=== PATIENT | female | born 1940 | race Caucasian/White ===

== ENCOUNTER → 2020-07-13 13:19 | Outpatient (CLI) | payer MEDICARE, SELFPAY ==
--- NOTE | ~2020-07-13 | DEXA_ITS ---
Bone Density Report Name: JANE LEAL Age: 79 Sex: Female Ethnicity: White Date of : 1940 Indication: hyperparathyroidism; height loss; postmenopausal Referring Provider: Tete, Yadiel Study: Bone densitometry was performed. Exam Date: July 13, 2020 Accession number: [id number] Bone Density: Region BMD T-score Z-score Classification AP Spine (L1-L4) 1.156 1.0 3.7 Normal Femoral Neck (Left) 0.697 -1.4 1.0 Osteopenia Total Hip (Left) 0.841 -0.8 1.3 Normal Femoral Neck (Right) 0.718 -1.2 1.2 Osteopenia Total Hip (Right) 0.753 -1.6 0.6 Osteopenia Total Hip Mean 0.797 -1.2 1.0 Osteopenia World Health Organization criteria for BMD impression classify patients as: Normal (T-score at or above -1.0), Osteopenia (T-score between -1.0 and -2.5), or Osteoporosis (T-score at or below -2.5). 10-year Fracture Risk: FRAX not reported because: Treated for osteoporosis Clinical Information Provided by Patient: Is being treated for osteoporosis Has used the following medications: Fosamax (i.e. alendronate), Vitamin D Has the following medical conditions: Hyperparathyroidism Patient maximum height was 63 Menopause Age: 46 Drinks caffeinated beverages Onset of menses at age 9 Number of children 2 Impression: The patient has low bone mass, based on the Right Total Hip T-score. Discussion: It is important to ask patients whether they are taking their medications and to encourage continued and appropriate compliance with their osteoporosis therapies to reduce fracture risk. It is also important to review their risk factors and encourage appropriate calcium and vitamin D intakes, exercise, fall prevention and other lifestyle measures. Follow-Up: Consider a repeat BMD and Vertebral Fracture Assessment (VFA) exam in 2 years or sooner if medically necessary, to reassess this patient's status. Reported by: ALINA on 07/13/2020 1:40:00 PM. Reviewed, dictated and finalized at location [facility]
== END ==
PROVIDERS: PCP Internal Medicine; Visit Provider Internal Medicine
DX: M81.0 Age-related osteoporosis without current pathological fracture (principal); M85.851 Other specified disorders of bone density and structure, right thigh; M85.852 Other specified disorders of bone density and structure, left thigh
CPT/HCPCS: 77080

== ENCOUNTER → 2020-12-20 14:17 | Outpatient (CLI) | payer MEDICARE, SELFPAY ==
--- NOTE | ~2020-12-20 | MR_ITS ---
EXAMINATION: MR lumbar spine wo/w con DATE: 12/20/2020 15:42 INDICATION: Left leg pain and numbness. Lumbar radiculopathy. Arteriovenous fistula. TECHNIQUE: Magnetic resonance imaging (MRI) of the lumbar spine was performed without and with 16 mL MultiHance intravenous contrast. Sequences included sagittal T2-weighted FSE, sagittal T2-weighted FS FSE, and sagittal and axial T1-weighted FSE. Postcontrast sequences included axial T2-weighted FSE a nd axial and sagittal T1-weighted FS FSE. COMPARISON: None FINDINGS: There is 3 mm retrolisthesis of L1 on L2. There are Schmorl's nodes at multiple levels. The re is moderately decreased disc height at L1-L2 and L2-L3, severely decreased disc height at L3-L4, a nd mildly decreased disc height at L4-L5 with endplate remodeling. The distal spinal cord signal inte nsity is normal. The conus medullaris is at T12-L1. There are prominent vessels posterior to the spin al cord in the lower thoracic spine. The following disc levels are specifically discussed: L1-L2: The disc is bulging. There is moderate bilateral facet joint osteoarthritis. There is mild roz ateral neural foraminal stenosis. There is mild central canal stenosis. L2-L3: The disc is bulging. There is moderate bilateral facet joint osteoarthritis. There is mild roz ateral neural foraminal stenosis. There is mild central canal stenosis. L3-L4: The disc is bulging and has an annular fissure. There is severe bilateral facet joint osteoart hritis. There is mild bilateral neural foraminal stenosis. There is mild central canal stenosis. L4-L5: The disc is bulging and has an annular fissure. There is severe bilateral facet joint osteoart hritis. There is mild bilateral neural foraminal stenosis. There is mild central canal stenosis. L5-S1: The disc is mildly bulging. There is severe bilateral facet joint osteoarthritis. There is mil d right neural foraminal stenosis. There is no central canal stenosis. IMPRESSION: 1. Severe lumbar spondylosis. 2. Partially visualized prominent vessels posterior to the spinal cord in the lower thoracic spine. T his finding is nonspecific and may be normal, but may be seen with dural arteriovenous fistula. Reviewed, dictated and finalized at location A. R CONE GRADER IMPRESSION: 1. Severe lumbar spondylosis. 2. Partially visualized prominent vessels posterior to the spinal cord in the l ower thoracic spine. This finding is nonspecific and may be normal, but may be seen with dural arteriovenous fistula.
[2020-12-20 15:05] LABS: Estimated Glomerular Filt Rate > 60
== END ==
DX: I77.0 Arteriovenous fistula, acquired (principal); M54.16 Radiculopathy, lumbar region; M25.552 Pain in left hip; M47.816 Spondylosis without myelopathy or radiculopathy, lumbar region
CPT/HCPCS: 72158; A9577

== ENCOUNTER → 2021-02-16 13:17 | Outpatient (CLI) | payer MEDICARE, SELFPAY ==
--- NOTE | ~2021-02-16 | MR_ITS ---
EXAMINATION: MR thoracic spine wo/w con DATE: 02/16/2021 15:03 INDICATION: Dural arteriovenous fistula. TECHNIQUE: Magnetic resonance imaging (MRI) of the thoracic spine was performed without and with 17 m L MultiHance intravenous contrast. Sequences included sagittal and axial T2-weighted FSE, sagittal ST IR FSE, and sagittal and axial T1-weighted FSE. Postcontrast sequences included sagittal and axial T1 -weighted FS FSE. COMPARISON: Lumbar spine MRI 12/20/2020 FINDINGS: There is 8 degrees levocurvature of thoracic spine. There is kyphosis of thoracic spine. Th ere is a Schmorl's node of inferior endplate of T12. There is mildly decreased disc height from T2-T3 through T12-L1 with endplate remodeling. There is multilevel facet joint osteoarthritis, severe in t he upper thoracic spine and on the left at T10-T11. There is multilevel mild neural foraminal stenosi s bilaterally. At T5-T6, the disc is mildly bulging with mild central canal stenosis. There is widesp read increased T2-weighted signal intensity in the spinal cord, worst at T6 and T11. There are promin ent blood vessels posterior to the spinal cord from T3 to T11. IMPRESSION: 1. 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 2. Mild thoracic spondylosis. Reviewed, dictated and finalized at location A. SPREADER IMPRESSION: 1. 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 2. Mild thoracic spondylosis.
[2021-02-16 14:22] LABS: Estimated Glomerular Filt Rate > 60
== END ==
PROVIDERS: PCP Internal Medicine
DX: I67.1 Cerebral aneurysm, nonruptured (principal)
CPT/HCPCS: 72157; A9577

== ENCOUNTER 2023-04-16 10:00 | Inpatient (IN) | payer MEDICARE, SELFPAY ==
--- NOTE | ~2023-04-16 | US_ITS ---
EXAMINATION: US renal BI DATE: 04/16/2023 20:00 INDICATION: Right kidney mass. TECHNIQUE: Multiple ultrasound grayscale images of the kidneys were obtained. COMPARISON: CT abdomen and pelvis 04/16/23 FINDINGS: The right kidney measures 12.3 x 6.3 x 5.8 cm. The left kidney measures 11.0 x 6.0 x 4.5 cm. The kidn eys demonstrate normal parenchymal echogenicity. There is a 2.9 cm cyst in right kidney. There is no hydronephrosis. The bladder is normal. IMPRESSION: 1. 2.9 cm cyst in right kidney. Reviewed, dictated and finalized at location E. ER MACHINE
--- NOTE | ~2023-04-16 | CT_ITS ---
EXAMINATION: CT abdomen pelvis w con DATE: 04/24/2023 11:45 INDICATION: Intra-abdominal abscess status post percutaneous drainage. TECHNIQUE: Computed tomography (CT) of the abdomen and pelvis was performed with 100 mL Omnipaque 350 intravenous contrast and with rectal contrast. Automated exposure control and iterative reconstructi on technique were employed. The dose-length product was 663.41 mGy-cm. COMPARISON: CT abdomen and pelvis 04/20/2023 FINDINGS: The visualized portions of the lung bases demonstrate mild atelectasis. There is mild eleva tion of right hemidiaphragm. No pleural effusion. The heart size is normal. There are coronary artery calcifications. No pericardial effusion. There is a small sliding hiatal hernia. The liver is normal . There are changes of cholecystectomy. The spleen, pancreas, and right adrenal gland are normal. The re is a 15 mm mass in the left adrenal gland measuring soft tissue attenuation. There is cortical thi nning of the kidneys. There is a 2.9 cm hemorrhagic cyst in right kidney. There are cysts in the kidn eys measuring up to 6 mm on the left. The bladder is decompressed by a Ivy catheter. There are scat tered diverticula in the colon. There is wall thickening of the sigmoid colon. There is fat stranding around the sigmoid colon and rectum. There is a 6.6 x 3.0 x 1.6 cm perisigmoid abscess. There is a p ercutaneous drain in expected position. There is no rectal contrast in the abscess. Aortic atheroscle rosis is noted. The appendix is normal. There are no pathologically enlarged lymph nodes. There is mi ld thoracic spondylosis and severe lumbar spondylosis. IMPRESSION: 1. Perisigmoid abscess with percutaneous drain in expected position, mildly improved from 04/20/2023. No rectal contrast in the abscess. 2. 15 mm left adrenal mass. 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 Reviewed, dictated and finalized at location A. IMPRESSION: 1. Perisigmoid abscess with percutaneous drain in expected position, mildly imp roved from 04/20/2023. No rectal contrast in the abscess. 2. 15 mm left adrenal mass. 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
--- NOTE | ~2023-04-16 | CT_ITS ---
EXAMINATION: CT abdomen pelvis w con DATE: 04/20/2023 16:28 INDICATION: Pelvic abscess. TECHNIQUE: Computed tomography (CT) of the abdomen and pelvis was performed with 100 mL Omnipaque 350 intravenous contrast. Automated exposure control and iterative reconstruction technique were employe d. The dose-length product was 963.84 mGy-cm. COMPARISON: CT abdomen and pelvis 04/16/23, ultrasound 04/16/2023 FINDINGS: The visualized portions of the lung bases demonstrate mild atelectasis. There are trace ple ural effusions. There is mild elevation of right hemidiaphragm. The heart size is normal. No pericard ial effusion. There are coronary artery calcifications. The liver is normal. There are changes of cho lecystectomy. The common duct measures 12 mm in diameter, likely not clinically significant given the normal liver function tests.. There is a small sliding hiatal hernia. The spleen, pancreas, and righ t adrenal gland are normal. There is a 15 mm mass in left adrenal gland. There is cortical thinning o f the kidneys. There is a 2.9 cm hemorrhagic cyst in right kidney. There are cysts in the kidneys siria suring up to 6 mm on the left. There is a right inguinal hernia containing fat. There are scattered d iverticula in the colon. There is wall thickening of the sigmoid colon. The appendix is normal. Aorti c atherosclerosis is noted. There are calcified fibroids in the uterus. There is a perisigmoid absces s measuring 7.0 x 3.2 x 2.8 cm. There is a percutaneous drain in expected position. There are no path ologically enlarged lymph nodes. There is mild thoracic spondylosis and severe lumbar spondylosis. IMPRESSION: 1. Perisigmoid abscess with percutaneous drain in expected position, worsened from 04/16/2023. 2. 15 mm left adrenal mass. 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 Reviewed, dictated and finalized at location E. IMPRESSION: 1. Perisigmoid abscess with percutaneous drain in expected position, worsened f rom 04/16/2023. 2. 15 mm left adrenal mass. 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
--- NOTE | ~2023-04-16 | CT_ITS ---
EXAMINATION: CT guide absc cath placement DATE: 04/17/2023 13:32 INDICATION: Pelvic abscess TECHNIQUE: The procedure including the risks and benefits was discussed with the patient. Risks discu ssed included bleeding, infection, allergic reaction and nerve or visceral organ injury. The patient understood the risks and benefits and agreed to proceed. The patient was confirmed to be receiving ap propriate antibiotic coverage. The patient was placed prone and the skin overlying the right buttock was prepped and draped in usual sterile fashion. [facility] CT imaging was obtained including following a dministration of with 100 mL Omnipaque-350 intravenous contrast to delineate the margins of the pelvi c abscess. Anesthetic was administered with 1% lidocaine subcutaneously. Conscious sedation was also provided with 50 mcg fentanyl administered IV. A 18-gauge trochar needle was inserted into the pelvic peritoneal fluid collection with intermittent CT guidance. The inner stylette was removed and a J-wi re was advanced through the needle into the fluid collection with position confirmed by CT . Utilizin g Seldinger technique the needle was removed and the tract serially dilated over the wire to 9 Greenlandic . An 8.5 Fr catheter was inserted into the peritoneal fluid collection over the wire with position co nfirmed by CT. The distal loop was formed and locked, the wire removed and the catheter was stitched to skin with suture. Anabiotic ligament and a sterile dressing were applied. An additional adhesive f ixation device was obtained. 20 mL of opaque [id number]-rusyrzz fluid was aspirated and the tube w hich was then attached to suction drainage. There were no immediate complications. The dose-length pr oduct was 311.39 mGy-cm. FINDINGS: CT images demonstrate the catheter within the 6.4 x 2.8 x 2.0 cm fluid collection in the cu l-de-sac of the pelvis.. 20 mL fluid was aspirated for testing. IMPRESSION: 1. Successful CT-guided right transgluteal pelvic abscess drainage catheter placement. 2. 20 mL fluid was sent for aerobic and anaerobic cultures. 3. The catheter will be managed by Dr. Constantino. Reviewed, dictated and finalized at location A. AR POINTER IMPRESSION: 1. Successful CT-guided right transgluteal pelvic abscess drainage catheter darrian cement. 2. 20 mL fluid was sent for aerobic and anaerobic cultures. 3. The catheter will be managed by Dr. Constantino.
--- NOTE | ~2023-04-16 | CT_ITS ---
CT of the Abdomen and Pelvis: Indication: Abdominal pain Technique: 2.5 mm axial scans were obtained through the abdomen and pelvis following intravenous adm inistration of 100 cc of Omnipaque 350. Dose reduction technique was used on this scan by utilizing a utomated exposure control and iterative reconstruction technique. The dose-length product (DLP) was 6 02.18 mGy-cm. Findings: Scans through the lung bases are unremarkable. The liver, spleen, pancreas, right adrenal gland, and left kidney are within normal limits. Cholecyst ectomy clips present. 1.4 cm left adrenal nodule present, indeterminate. 2.9 cm right renal mass pres ent, probably hyperdense cyst, though solid lesion not completely excluded. There are atherosclerotic calcifications of the aorta. No lymphadenopathy. There is a 5.5 x 2.9 cm abscess in the pelvic cul-de-sac between the uterus and distal rectum. There is inflammatory change about the distal sigmoid colon and rectum with underlying diverticular disease . No free air evident. Images through the pelvis were performed. Urinary bladder unremarkable. Small calcified uterine fibro ids are present. Impression: 5.5 x 2.0 pelvic abscess, likely due to underlying sigmoid diverticulitis. Small calcified fibroids. 2.9 cm right renal mass, likely hyperdense cyst, however the solid mass not excluded. Ultrasound earle mmended to assess for cystic versus solid lesion. 1.4 cm indeterminate left adrenal nodule, most likely benign. Reviewed, dictated and finalized at [facility]. D STRATEGIST Impression: 5.5 x 2.0 pelvic abscess, likely due to underlying sigmoid diverticulitis. Small calcified fibroids. 2.9 cm right renal mass, likely hyperdense cyst, however the solid mass not exc luded. Ultrasound recommended to assess for cystic versus solid lesion. 1.4 cm indeterminate left adrenal nodule, most likely benign.
--- NOTE | ~2023-04-16 | CT_ITS ---
EXAMINATION: CT abdomen pelvis wo con DATE: 04/28/2023 10:10 INDICATION: Follow-up pelvic abscess drainage TECHNIQUE: Computed tomography (CT) of the abdomen and pelvis was performed without intravenous contr ast. Automated exposure control and iterative reconstruction technique were employed. The dose-length product was 797.44 mGy-cm. COMPARISON: CT studies dated 04/25/2023 through 04/17/2023 FINDINGS: Mild discoid atelectasis at the lingula and mild dependent atelectasis in the bilateral lower lobes. Heart size is normal. Atherosclerotic coronary artery calcific location. Small pericardial effusion. No pleural effusion. Small sliding-type hiatal hernia. Cholecystectomy clips the gallbladder fossa. L iver, spleen, pancreas and right adrenal gland are normal. Unchanged 1.5 cm left adrenal mass. Unchan ged 2.9 cm hemorrhagic cyst at the lower pole the right kidney. 3 mm nonobstructing stone at the lowe r pole of the left kidney. Again seen is a right transgluteal percutaneous abscess drain with distal tip coiled along side the rectum within the now completely decompressed abscess cavity. Multiple dive rticula along the visualized portions of the colon. There is diffuse mild wall thickening of the colo n consistent with colitis. Normal appendix. No bowel obstruction. There is some gas within the partia lly decompressed bladder. There are few calcified degenerated uterine fibroids. Bilateral adnexa are unremarkable. No pathologically enlarged abdominal or pelvic lymphadenopathy. Mild thoracic and sever e lumbar spondylosis. IMPRESSION: 1. Unchanged right transgluteal percutaneous pelvic abscess drain with resolution of the prior pelvic abscess. 2. Extensive diverticulosis along with diffuse mild wall thickening of the colon consistent with coli tis which could be infectious, inflammatory or less likely ischemic in etiology. 3. Nonspecific small amount of gas within the bladder. Correlate for recent instrumentation or Ivy catheterization. 4. Unchanged 1.5 cm left adrenal mass statistically most likely to represent an adenoma. 5. Small sliding-type hiatal hernia. 6. 3 mm nonobstructing stone at the lower pole of the left kidney. Reviewed, dictated and finalized at location A. IMPRESSION: 1. Unchanged right transgluteal percutaneous pelvic abscess drain with resoluti on of the prior pelvic abscess. 2. Extensive diverticulosis along with diffuse mild wall thickening of the colo n consistent with colitis which could be infectious, inflammatory or less likel y ischemic in etiology. 3. Nonspecific small amount of gas within the bladder. Correlate for recent ins trumentation or Ivy catheterization. 4. Unchanged 1.5 cm left adrenal mass statistically most likely to represent an adenoma. 5. Small sliding-type hiatal hernia. 6. 3 mm nonobstructing stone at the lower pole of the left kidney.
--- NOTE | ~2023-04-16 | CT_ITS ---
EXAMINATION: CT guide absc cath placement DATE: 04/25/2023 15:07 INDICATION: Perisigmoid abscess. TECHNIQUE: The procedure including the risks, benefits, and alternatives was discussed with the patie nt. Risks discussed included bleeding and infection. The patient understood the risks and benefits an d agreed to proceed. The skin around the right transgluteal drain was prepped and draped in usual st erile fashion. Anesthetic was administered with 1% lidocaine subcutaneously. Moderate sedation was a chieved with 1 mg Versed IV and 50 mg fentanyl IV. The pigtail drain was cut and exchanged over a J-w jake for 10 Malagasy and 12 Malagasy dilators and a new 12 Malagasy pigtail catheter. The catheter was stitc hed to the skin, and a sterile dressing was applied. The mA was adjusted according to patient size. I terative reconstruction technique was employed. The dose-length product was 121.46 mGy-cm. There were no immediate complications. FINDINGS: CT images demonstrate the catheter within the perisigmoid abscess. There is little residual fluid. IMPRESSION: 1. Successful CT-guided perisigmoid abscess drain change. Reviewed, dictated and finalized at location A.
[2023-04-16 10:06] VITALS: BP 170/79; PULSE 110; RESP 16; TEMP 36.6; O2SAT 97
--- NOTE | 2023-04-16 11:23 | ECG_ITS ---
Measurements Intervals [place] Rate: 84 P: -7 VT: 137 QRS: 26 QRSD: 89 T: 39 QT: 353 QTc: 418 Interpretive Statements SINUS RHYTHM ATRIAL PREMATURE COMPLEXES BASELINE ARTIFACT- I, II, AVR BORDERLINE ECG NO PREVIOUS ECG AVAILABLE FOR COMPARISON Electronically Signed On 04-16-2023 11:50:03 MANAGER SALT by Hudson Mckeon D.O.
--- NOTE | 2023-04-16 11:23 | ED.ABDPAIN ---
HPI - Abdominal Pain General Chief Complaint: Abdominal Pain <Daniella Carrion PA-C - Last Filed: 04/18/23 20:36> Stated Complaint: abd cramping, n/v/d <Daniella Carrion PA-C - Last Filed: 04/18/23 20:36> Time Seen by Provider: 04/16/23 11:20 <Daniella Carrion PA-C - Last Filed: 04/18/23 20:36> Focused HPI: This is an 82-year-old female that presents to the emergency department for abdominal pain. Ongoing over the last 4 days. Reports crampy abdominal pain associated with vomiting and diarrhea. On Friday night she was feeling very weak and sustained a fall. She did not hit her head or lose consciousness. Although she was unable to get up and laid on the floor all night due to this. She has continued to have crampy abdominal pain and diarrhea any time she eats. Denies fevers. Past medical history of cholecystectomy GENERAL: Well-appearing, well-nourished, and in no acute distress. HEAD: Normocephalic, atraumatic. CHEST: Clear to auscultation. ?No respiratory distress. HEART: Regular rate and rhythm.? NEURO: ?Alert and oriented x3. Patient screened in triage and initial orders placed.? ?Additional care and disposition to be based upon?diagnostic testing and treatment. <Daniella Carrion PA-C - Last Filed: 04/18/23 20:36> History of Present Illness HPI narrative: 82-year-old female presenting with lower abdominal pain that started about 4 days ago. Associated with vomiting and diarrhea. States that she has been increasingly weak and has not been urinating as frequently. She denies pain anywhere else. No fevers. No further complaints. <Nancy Browne MD - Last Filed: 04/21/23 21:56> Related Data Home Medications: Home Medications Medication Instructions Recorded Confirmed alendronate 70 mg tablet 70 mg PO WEEKLY 04/16/23 04/16/23 bimatoprost 0.01 % eye drops 1 drp EACH EYE DAILY 04/16/23 04/16/23 (Mar) hydrochlorothiazide 25 mg tablet 25 mg PO DAILY 04/16/23 04/16/23 levothyroxine 88 mcg tablet 88 mcg PO DAILY 04/16/23 04/16/23 semaglutide 0.25 mg or 0.5 mg (2 0.5 mg subcut WEEKLY 04/16/23 04/16/23 mg/3 mL) subcutaneous pen injector (Ozempic) timolol maleate 0.5 % eye drops 1 drp LEFT EYE DAILY 04/16/23 04/16/23 valsartan 80 mg tablet 80 mg PO DAILY 04/16/23 04/16/23 <Daniella Carrion PA-C - Last Filed: 04/18/23 20:36> Allergies/Adverse Reactions: Allergies Allergy/AdvReac Type Severity Reaction Status Date / Time latex Allergy Unknown Verified 04/16/23 17:07 <Daniella Carrion PA-C - Last Filed: 04/18/23 20:36> Review of Systems Review of Systems: All systems reviewed & are unremarkable except as noted in HPI and below <Nancy Browne MD - Last Filed: 04/21/23 21:56> [facility] Past Medical History Medical History: Medical History (Updated 04/19/23 @ 08:40 by Manny Hameed MD) Glaucoma Hypertension Hypothyroidism Osteoarthritis Osteoporosis Type 2 diabetes mellitus <Daniella Carrion PA-C - Last Filed: 04/18/23 20:36> Surgical History Surgical History: Surgical History (Updated 04/16/23 @ 16:50 by Rosanna Jennings PA-C) History of bilateral knee arthroplasty History of colonoscopy History of laparoscopic cholecystectomy <Daniella Carrion PA-C - Last Filed: 04/18/23 20:36> Family History Family History: Family History Other No pertinent family history <Daniella Carrion PA-C - Last Filed: 04/18/23 20:36> Social History Social History: Social History (Updated 04/16/23 @ 22:43 by Rosanna Jennings PA-C) Social History: Surrogate medical decision maker: Pierre Finley, spouse. Code status: Full code. Smoking status: Never smoker Alcohol intake: never Substance use: never Do You Feel Safe in your Home?: Yes Lack of Transportation: No Lack of Food: Never True Current Housing: I Have Housing Concerned About Future Housing:
[2023-04-16 11:38] LABS: Basophils Percent Auto 0.2 % (0.2-1.2); Eosinophils Percent Auto 0.1 % (0-4.4); Hematocrit 41.4 % (37.0-47.0); Immature Granulocyte Absolute 0.07 K/mm3 (0.00-0.031); Immature Granulocyte Percent A 0.5 % (0-0.5); Lymphocytes Absolute Auto 0.82 K/mm3 (0.9-3.2); Lymphocytes Percent Auto 5.8 % (18.3-44.2); Mean Corpuscular HGB Conc 31.4 g/dl (32-36); Mean Corpuscular Volume 92.4 fl (80-100); Mean Platelet Volume 9.7 fl (7.4-10.4); Monocytes Absolute Auto 0.6 K/mm3 (0.1-0.6); Monocytes Percent Auto 4.5 % (2.6-8.5); Neutrophils Absolute Auto 12.5 K/mm3 (1.3-6.7); Neutrophils Percent Auto 88.9 % (45.5-73.1); Platelet Count Result 318 k/mm3 (150-375); Red Blood Count 4.48 M/mm3 (4.2-5.4); Red Cell Distribution Width 13.3 % (11.5-14.5); White Blood Count 14.1 K/mm3 (4.5-10.0)
[2023-04-16] MEDS: ONDANSETRON INJ 4 MG/2 ML VIAL IV PUSH (11:40)
[2023-04-16] MEDS: SODIUM CHLORIDE 0.9% IV 1,000 ML 999 ML IV CONT ×2 (11:40→13:19)
[2023-04-16 11:49] LABS: Alanine Aminotransferase 24 U/L (6-35); Albumin Level 3.8 g/dL (3.5-5.1); Alkaline Phosphatase 133 U/L (38-126); Anion Gap 8 mmol/L (8-16); Aspartate Amino Transferase 26 U/L (14-36); Bilirubin,Total 0.9 mg/dL (0.2-1.3); Blood Urea Nitrogen 20 mg/dL (7-17); Calcium 9.8 mg/dL (8.4-10.2); Carbon Dioxide 29 mmol/L (22-30); Chloride 96 mmol/L (98-107); Estimated CRCL calculation 56 ml/min; Estimated Glomerular Filt Rate > 60; Glucose 111 mg/dL (65-110); Lipase 24 U/L (23-300); Potassium 3.2 mmol/L (3.4-5.0); Sodium 133 mmol/L (137-145)
[2023-04-16 11:52] LABS: Creatine Kinase 21 U/L (30-135)
[2023-04-16 12:15] LABS: Influenza A QL RT-PCR Negative (Negative); Influenza B QL RT-PCR Negative (Negative); SARS-CoV-2 RNA PCR Negative (Negative)
[2023-04-16] MEDS: PIPERACILLN/TAZ 3.375GM/NS50ML 3.375 GM/50 ML BAG IVPB ×2 (14:50→20:17)
[2023-04-16] MEDS: MORPHINE SULFATE (*CRX) 2 MG/ML INJ IV PUSH ×2 (15:08→20:16)
--- NOTE | 2023-04-16 15:36 | PM.CNGS ---
Assessment and Plan Assessment and plan (1) Diverticulitis of large intestine with abscess: Code(s): K57.20 - Diverticulitis of large intestine with perforation and abscess without bleeding Status: Acute Assessment and Plan: CT findings of a pelvic abscess measuring 5.5 x 2.0 cm with inflammatory change at the distal sigmoid colon and rectum with underlying diverticular disease. No free intraperitoneal air. This is likely secondary to sigmoid diverticulitis. This would be her first episode of diverticulitis. She has appropriate tenderness in the suprapubic area and left lower quadrant. No diffuse peritoneal signs. Discussed the CT findings with the patient and our recommendations. We will continue IV Zosyn and start IV fluids with potassium since her potassium was slightly low. Will keep her NPO for bowel rest and add analgesics as needed. I have also ordered CT-guided percutaneous drainage of the pelvic abscess to be done in Radiology. Will add coags to her labs today for the procedure. Will continue to monitor with serial abdominal exams and labs again in the morning. (2) Hypertension: Code(s): I10 - Essential (primary) hypertension Status: Chronic (3) Hypothyroidism: Code(s): E03.9 - Hypothyroidism, unspecified Status: Chronic (4) Renal mass: Code(s): N28.89 - Other specified disorders of kidney and ureter Status: Acute Assessment and Plan: Incidentally found on CT, showing 2.9 cm right renal mass, likely hyperdense cyst, however the solid mass not excluded. Radiologist recommends an ultrasound to assess for cystic versus solid lesion. Plan I have discussed the patient's case and plan of care with Dr. Hameed. Thank you for allowing us to see the patient in consultation and we will continue to follow along with you. History of Present Illness Consult details Consult date: 04/16/23 Reason for consult: other (Pelvic abscess) Requesting physician: Nancy Browne MD Narrative: This is an 82-year-old woman with a history of hypertension, hypothyroidism, and osteoporosis, who we have been asked to see in surgical consultation for a pelvic abscess. She presented to the ER today with complaints of lower abdominal pain. She reports waking up with left lower quadrant pain 4 days ago. She developed nausea, vomiting, and diarrhea throughout the day. These symptoms improved, but her abdominal pain persisted over the next few days. Three nights ago, her leg got wrapped up in her bed sheet and she fell to the floor from her bed. She was too weak to get up and her was unable to lift her up off the floor back to bed, so she slept on the floor all night. Her son and neighbor came over in the morning to help her up off the floor. Her neighbor is also a physician and took her vital signs, and told her she was dehydrated and needed to drink fluids. Therefore, she focused on drinking water, Gatorade, smoothies, and keeping fluids down. She was not having any vomiting. She reports feeling feverish and having chills, but she did not take her temperature. She was still having left lower quadrant abdominal pain. She was not eating any solid foods. Her diarrhea improved until yesterday when she tried to eat some chicken noodle soup. Shortly after, her abdominal pain got worse and she had another episode of diarrhea. Her abdominal pain started to migrate to the right lower quadrant and suprapubic area yesterday as well. Due to the persistent pain, she decided to come into the ER today as she had not received a call back from her PCP after leaving a message. In the ER, she is afebrile and mildly tachycardic with a heart rate of 110. Blood pressure elevated at 170/79. Labs showed a white blood cell count of 14,100 with a left shift, sodium 133, potassium 3.2, BUN 20, creatinine 0.6, total CK 21. Influenza and COVID negative. CT scan of the abdomen and pelvis showed a 5.5 x 2 cm pelvic abscess likel
[2023-04-16 16:00] VITALS: BP 137/89; PULSE 83; RESP 16; O2SAT 100
[2023-04-16 16:15] VITALS: BP 143/58; PULSE 76; RESP 18; TEMP 36.6; O2SAT 95
--- NOTE | 2023-04-16 16:15 | PC.NURSE ---
This patient, Glendy Finley, was admitted to 3 [facility] Surg Room 303-01. Patient/family oriented to hospital policies and general routines including ID bracelet, bed and alarms, visiting hours, pain management, procedures, bathroom and other care routines, personal items, smoking policy, room service/diet, and visiting hours. Information on how to activate the Rapid Response Team has been discussed. Patient/Family are encouraged to report perceived risks to care and to ask questions if they do not understand what they are told or what they should do.
[2023-04-16 16:16] VITALS: BMI 34.1
--- NOTE | 2023-04-16 16:42 | PM.IMHP ---
H&P: HPI History of Present Illness Date/Time: 04/16/23 17:15 Chief Complaint: Abdominal pain. Narrative: This is a very pleasant 82-year-old female with type 2 diabetes mellitus, hypertension, hypothyroidism, and osteoporosis who presented to the emergency department for evaluation of abdominal pain. The patient provides the following history. Four days ago she awoke with cramping, nonradiating left lower quadrant pain with nausea, vomiting, and diarrhea developing throughout the day. While the nausea, vomiting, and diarrhea improved, the abdominal pain has not. She reports a suggestive fever and chills but has not taken her temperature. Her appetite has not been great and she is only had a small amount of chicken noodle soup. She has become increasingly weak and reports that a couple of nights ago she fell out of bed and neither she nor her were able to get her up so she slept on the floor overnight. The next morning her neighbors came over to help her up. Over the course of the last 24 hours her abdominal pain has intensified and now seems to radiate somewhat to the right lower quadrant and suprapubic region. It is now pretty constant and is occasionally sharp. She denies aggravating and alleviating factors. She also denies vomiting, bloody stools, and sick contacts. She has never had similar symptoms. In the ED: She is afebrile and mildly tachycardic with heart rate in the low 100s. Blood pressures have been stable and in fact a bit high a. Labs were significant for WBC count of 14.1, sodium 133, potassium 3.2, BUN 20, creatinine 0.60, total CK 21. CT of the abdomen and pelvis showed a 5.5 x 2 cm pelvic abscess likely due to underlying sigmoid diverticulitis, and incidental findings to include small calcified fibroid, 2.9 cm right renal mass, 1.4 cm indeterminate left adrenal nodule which is likely benign. She was given a dose of IV Zosyn and 2 L normal saline. She is being admitted in this setting for further IV antibiotics, surgery consultation, and drain placement. Review of Systems Review of Systems: Twelve systems were reviewed and are negative except for as per HPI. [facility] Past Medical History Medical History (Updated 04/16/23 @ 22:43 by Rosanna Jennings PA-C) Glaucoma Hypertension Hypothyroidism Osteoarthritis Osteoporosis Type 2 diabetes mellitus Surgical History Surgical History (Updated 04/16/23 @ 16:50 by Rosanna Jennings PA-C) History of bilateral knee arthroplasty History of colonoscopy History of laparoscopic cholecystectomy Family History Family History Other No pertinent family history Social History Social History (Updated 04/16/23 @ 22:43 by Rosanna Jennings PA-C) Social History: Surrogate medical decision maker: Pierre Finley, spouse. Code status: Full code. Smoking status: Never smoker Alcohol intake: never Substance use: never Do You Feel Safe in your Home?: Yes Lack of Transportation: No Lack of Food: Never True Current Housing: I Have Housing Concerned About Future Housing: No Difficulty Paying Gas/Electric Bills: No Difficulty Paying for Meds: No Currently Unemployed: No Education: Master's Degree or Higher Difficulty w/ Childcare or Family Care: No Additional living arrangements comments: Originally from [place]. Lived in [facility] for many years before moving to [place] and more recently moving to this area to be closer to her son. She has a daughter who lives in [place]. She lives with her . 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 Spiritual care concerns: No Meds Home Medications and Allergies Home Medications Medication Instructions Recorded Confirmed Type alendronate 70 mg tablet 70 mg PO WEEKLY 04/16/23 04/16/23 History bimatoprost 0.01 % eye drops 1 drp EACH EYE DAILY 04/16/23 04/16/23 History (Mar) hydrochlorothiazide
[2023-04-16 17:09] LABS: Partial Thromboplastin Time 29.8 SECONDS (22.3-36.8); Prothrombin Time 13.9 Seconds (11.1-14.7)
[2023-04-16] MEDS: KCL 20 MEQ/D5/0.9% SOD CHL 1,000 ML 100 ML IV CONT (17:16)
[2023-04-16 17:20] LABS: Appearance Urine Clear (Clear); Bacteria Urine 3+ /hpf; Bilirubin Urine Negative (Negative); Blood Urine Negative (Negative); Color Urine Yellow (Yellow); Glucose Urine UA Negative (Negative); Ketones Urine 2+ mg/dL (Negative); Leukocyte Esterase Ur Negative LEU/UL (Negative); Need Manual Microscopic Reviewed; Nitrate Urine Negative (Negative); Non Pathogenic Casts 0-2; Protein Urine 1+ mg/dL (Negative); RBC Urine 0-2 /hpf (0-2); Specific Grav Ur >= 1.099 (1.001-1.035); Squamous Epithelial Cell Urine Occasional /hpf (Few); pH Urine 6.5 (5.0-9.0)
[2023-04-16 17:21] LABS: Add Urine Microscopic? YES
[2023-04-16 19:50] VITALS: PULSE 76; RESP 18; O2SAT 95
[2023-04-16 20:45] VITALS: BP 119/54; PULSE 72; RESP 20; TEMP 35.8; O2SAT 93
[2023-04-17] VITALS (16 sets, daily range): BP systolic 115–143; BP diastolic 37–72; PULSE 61–81; RESP 16–24; TEMP 36.1–36.6; O2SAT 95–100
[2023-04-17] MEDS: PIPERACILLN/TAZ 3.375GM/NS50ML 3.375 GM/50 ML BAG IVPB ×4 (03:04→20:23)
[2023-04-17] MEDS: LEVOTHYROXINE SODIUM INJ 100 MCG/5 ML VIAL 44 MCG IV PUSH (05:44)
--- NOTE | 2023-04-17 06:35 | PM.IMPN ---
Progress Note: A&P Assessment and Plan (1) Diverticulitis of large intestine with abscess: Code(s): K57.20 - Diverticulitis of large intestine with perforation and abscess without bleeding Status: Acute Assessment and Plan: CT scan showed a pelvic abscess 5.5 x 2 cm which is likely due to underlying sigmoid diverticulitis and IR has been consulted for drain placement. first episode of diverticulitis. General Surgery Consulted from ED Analgesics and antiemetics are available as needed. iv zosyn procedures today: Transgluteal percutaneous pelvic peritoneal abscess drainage catheter placement. 20 mL fluid was sent for aerobic and anaerobic cultures. (2) Mild dehydration: Code(s): E86.0 - Dehydration Status: Acute Assessment and Plan: In the ER, she is afebrile and mildly tachycardic with a heart rate of 110. Blood pressure elevated at 170/79. Labs showed a white blood cell count of 14,100 with a left shift, sodium 133, potassium 3.2, BUN 20, creatinine 0.6, total CK 21 3/7 a.m. blood pressure 115/51, labs today note WBC 8.1, hemoglobin 10.1, sodium 134, potassium 3.0, BUN 16, creatinine 0.6, TSH 1.010. continue IV antibiotics and IV fluids (3) Right renal mass: Code(s): N28.89 - Other specified disorders of kidney and ureter Status: Acute Assessment and Plan: Incidentally found on CT, showing 2.9 cm right renal mass, likely hyperdense cyst, however the solid mass not excluded. Radiologist recommends an ultrasound to assess for cystic versus solid lesion. Renal ultrasound has been ordered to further characterize a 2.9 cm right renal mass noted on CT. And indeterminate 1.4 cm left adrenal nodule was also noted though most likely benign. renal ultrasound notes 2.9 cm cyst in right kidney. There is no hydronephrosis. The bladder is normal. (4) Hypokalemia: Code(s): E87.6 - Hypokalemia Status: Acute Assessment and Plan: 3.2 in ED replaced on repeat labs potassium is 3.0- 40 mEq K rider ordered per General surgery then initiate current fluids D5 normal saline with 20 potassium at 100mls/hr repeat labs in a.m. (5) Left adrenal mass: Code(s): E27.8 - Other specified disorders of adrenal gland Status: Acute Assessment and Plan: Renal ultrasound has been ordered to further characterize a 2.9 cm right renal mass noted on CT. And indeterminate 1.4 cm left adrenal nodule was also noted though most likely benign. (6) Hypertension: Code(s): I10 - Essential (primary) hypertension Status: Chronic Assessment and Plan: hydralazine ordered a.m. blood pressure 115/51 (7) Hypothyroidism: Code(s): E03.9 - Hypothyroidism, unspecified Status: Chronic Assessment and Plan: levothyroxine will be given IV form TSH level 1.010 (8) Type 2 diabetes mellitus: Code(s): E11.9 - Type 2 diabetes mellitus without complications Status: Acute Assessment and Plan: Initiate sliding scale insulin, Accu-Cheks, and hypoglycemic protocol home medication is Ozempic Plan The patient presented to the emergency department for evaluation of abdominal pain as detailed in HPI. Labs, imaging, EKG, and all reports were personally reviewed. CT scan showed a pelvic abscess which is likely due to underlying sigmoid diverticulitis and IR has been consulted for drain placement. She received a dose of Zosyn the emergency department and we will continue with that for now. General surgery has been consulted for their opinion as well. Continue NPO status for now. Analgesics and antiemetics are available as needed. She is dehydrated from poor oral intake and will be judiciously hydrated. Renal ultrasound has been ordered to further characterize a 2.9 cm right renal mass noted on CT. And indeterminate 1.4 cm left adrenal nodule was also noted though most likely benign. Potassium is low, was replaced, and will be monitored. Blood pressures we
[2023-04-17 06:53] LABS: Basophils Percent Auto 0.5 % (0.2-1.2); Eosinophils Absolute Auto 0.1 K/mm3 (0-0.3); Eosinophils Percent Auto 0.7 % (0-4.4); Hematocrit 33.2 % (37.0-47.0); Hemoglobin 10.1 g/dL (12.0-15.0); Immature Granulocyte Absolute 0.09 K/mm3 (0.00-0.031); Immature Granulocyte Percent A 1.1 % (0-0.5); Lymphocytes Absolute Auto 1.36 K/mm3 (0.9-3.2); Lymphocytes Percent Auto 16.9 % (18.3-44.2); Mean Corpuscular HGB Conc 30.4 g/dl (32-36); Mean Corpuscular Hemoglobin 28.4 pg (26-34); Mean Corpuscular Volume 93.3 fl (80-100); Mean Platelet Volume 9.7 fl (7.4-10.4); Monocytes Absolute Auto 0.5 K/mm3 (0.1-0.6); Monocytes Percent Auto 6.3 % (2.6-8.5); Neutrophils Percent Auto 74.5 % (45.5-73.1); Platelet Count Result 266 k/mm3 (150-375); Red Blood Count 3.56 M/mm3 (4.2-5.4); Red Cell Distribution Width 13.4 % (11.5-14.5); White Blood Count 8.1 K/mm3 (4.5-10.0)
[2023-04-17 07:05] LABS: Anion Gap 3 mmol/L (8-16); Blood Urea Nitrogen 16 mg/dL (7-17); Calcium 8.5 mg/dL (8.4-10.2); Carbon Dioxide 28 mmol/L (22-30); Chloride 103 mmol/L (98-107); Estimated CRCL calculation 58 ml/min; Estimated Glomerular Filt Rate > 60; Glucose 107 mg/dL (65-110); Sodium 134 mmol/L (137-145)
[2023-04-17] MEDS: TIMOLOL MALEATE 0.5% OP SOLN 5 ML BOTTLE 1 DROP LEFT EYE (08:41)
[2023-04-17] MEDS: LATANOPROST 0.005% OP SOLN 2.5 ML BTL 1 DROP EACH EYE (08:41)
--- NOTE | 2023-04-17 10:19 | PM.PNGS ---
Progress Note: A&P Assessment and Plan (1) Diverticulitis of large intestine with abscess: Code(s): K57.20 - Diverticulitis of large intestine with perforation and abscess without bleeding Status: Acute Assessment and Plan: CT findings of a pelvic abscess measuring 5.5 x 2.0 cm with inflammatory change at the distal sigmoid colon and rectum with underlying diverticular disease. This is likely secondary to sigmoid diverticulitis. Patient already clinically improving with IV antibiotics. WBC normal today. Plan to proceed with percutaneous abscess drainage today in Radiology of the pelvic abscess. If she is doing well after the procedure, we can start her on clear liquids. Will repeat labs again tomorrow. Continue IV Zosyn. (2) Hypertension: Code(s): I10 - Essential (primary) hypertension Status: Chronic (3) Hypothyroidism: Code(s): E03.9 - Hypothyroidism, unspecified Status: Chronic (4) Renal mass: Code(s): N28.89 - Other specified disorders of kidney and ureter Status: Acute Assessment and Plan: Incidentally found on CT, showing 2.9 cm right renal mass, likely hyperdense cyst, however the solid mass not excluded. Renal US showed 2.9 cm cyst. Plan I have discussed the patient's case and plan of care with Dr. Hameed. Subjective Subjective Date/Time Seen: 04/17/23 10:19 Patient reports: feels better, pain is less and afebrile Interval history: Patient feeling much better today. Reports only some pressure in the suprapubic area. No no significant abdominal pain at this time. No nausea or vomiting overnight. White blood cell count today is 8000. She is scheduled to have her percutaneous drainage today at noon. Review of Systems Review of Systems: All systems reviewed & are unremarkable except as noted in HPI and below Exam Const: General: comfortable Orientation/consciousness: patient oriented x3 GI: Inspection: non-distended GI Palp: Yes Soft to palpation (some fullness in the suprapubic area), No Tenderness to palpation present (GI), No Guarding due to palpation present (GI) and No Rebound tenderness present Auscultation: normal bowel sounds Objective Data Vital Signs Vital Signs: Vital Signs - 24 hr 04/16/23 16:00 04/16/23 16:46 04/16/23 16:15 Temperature 97.8 F Pulse Rate 83 76 Respiratory Rate 16 18 Blood Pressure 137/89 143/58 H Pulse Oximetry 100 95 Oxygen Delivery Room Air 04/16/23 19:50 04/16/23 20:45 04/17/23 06:00 Temperature 96.5 F L 98 F Pulse Rate 76 72 61 Respiratory Rate 18 20 20 Blood Pressure 119/54 L 115/51 L Pulse Oximetry 95 93 95 Oxygen Delivery Room Air Intake/Output Intake/Output: Intake & Output 04/14/23 04/15/23 04/16/23 04/17/23 23:59 23:59 23:59 23:59 Intake Total 2850 250 Output Total 200 200 Balance 2650 50 Meds/Results Medications: Active Medications Generic Name Dose Route Start Last Admin Trade Name Freq PRN Reason Stop Dose Admin Piperacillin/Tazobactam/Dextrose 3.375 gm in 50 mls @ 100 mls/hr 04/16/23 21:00 04/17/23 08:40 Zosyn 3.375 Gm/Ns 50 Ml IVPB 100 mls/hr Q6H HANK Administration Potassium Chloride/Dextrose/Sod Cl 1,000 mls @ 100 mls/hr 04/16/23 15:50 04/16/23 17:16 Kcl 20 Meq/D5/0.9% Sod Chl IV CONT 100 mls/hr .Q10H HANK Administration Ibuprofen 400 mg/ Sodium 104 mls @ 208 mls/hr 04/16/23 15:50 Chloride IVPB Q6H PRN Pain Rated 4-6 Latanoprost 1 drop 04/17/23 09:00 04/17/23 08:41 Latanoprost 0.005% Op Soln 2.5 Ml Btl EACH EYE 1 drop DAILY HANK Administration Levothyroxine Sodium 44 mcg 04/17/23 06:30 04/17/23 05:44 Levothyroxine Sodium Inj 100 Mcg/5 Ml Vial IV PUSH 44 mcg DAILY@0630 HANK Administration Morphine Sulfate 2 mg 04/16/23 15:50 04/16/23 20:16 Morphine Sulfate (*Crx) 2 Mg/Ml Inj IV PUSH 2 mg Q2H PRN Administration Pain Rated 7-10 Ondansetron HCl 4 mg 04/16/23 16:14
--- NOTE | 2023-04-17 12:00 | PC.NURSE ---
To XRAY via Wheelchair
--- NOTE | 2023-04-17 12:01 | WPDMODSED ---
Moderate Sedation Note-Pt Data Patient Data Diagnosis: pelvic abscess Present Complaint: mild pelvic pain Procedure to be performed/Plan: Transgluteal percutaneous pelvic peritoneal abscess drain placement. Allergies Allergy/AdvReac Type Severity Reaction Status Date / Time latex Allergy Unknown Verified 04/16/23 17:07 Home Medications Medication Instructions Recorded Confirmed Type alendronate 70 mg tablet 70 mg PO WEEKLY 04/16/23 04/16/23 History bimatoprost 0.01 % eye drops 1 drp EACH EYE DAILY 04/16/23 04/16/23 History (Mar) hydrochlorothiazide 25 mg tablet 25 mg PO DAILY 04/16/23 04/16/23 History levothyroxine 88 mcg tablet 88 mcg PO DAILY 04/16/23 04/16/23 History semaglutide 0.25 mg or 0.5 mg (2 0.5 mg subcut WEEKLY 04/16/23 04/16/23 History mg/3 mL) subcutaneous pen injector (Ozempic) timolol maleate 0.5 % eye drops 1 drp LEFT EYE DAILY 04/16/23 04/16/23 History valsartan 80 mg tablet 80 mg PO DAILY 04/16/23 04/16/23 History Current Medications: Active Medications Piperacillin/Tazobactam/Dextrose (Zosyn 3.375 Gm/Ns 50 Ml) 3.375 gm in 50 mls @ 100 mls/hr IVPB Q6H [facility] Last Admin: 04/17/23 08:40 Dose: 100 mls/hr Potassium Chloride/Dextrose/Sod Cl (Kcl 20 Meq/D5/0.9% Sod Chl) 1,000 mls @ 100 mls/hr IV CONT .Q10H [facility] Last Admin: 04/16/23 17:16 Dose: 100 mls/hr Ibuprofen 400 mg/ Sodium (Chloride) 104 mls @ 208 mls/hr IVPB Q6H PRN PRN Reason: Pain Rated 4-6 Potassium Chloride 40 meq/ (Sodium Chloride) 520 mls @ 130 mls/hr IVPB ONCE ONE Stop: 04/17/23 14:26 Latanoprost (Latanoprost 0.005% Op Soln 2.5 Ml Btl) 1 drop EACH EYE DAILY [facility] Last Admin: 04/17/23 08:41 Dose: 1 drop Levothyroxine Sodium (Levothyroxine Sodium Inj 100 Mcg/5 Ml Vial) 44 mcg IV PUSH DAILY@0630 [facility] Last Admin: 04/17/23 05:44 Dose: 44 mcg Morphine Sulfate (Morphine Sulfate (*Crx) 2 Mg/Ml Inj) 2 mg IV PUSH Q2H PRN PRN Reason: Pain Rated 7-10 Last Admin: 04/16/23 20:16 Dose: 2 mg Ondansetron HCl (Ondansetron Inj 4 Mg/2 Ml Vial) 4 mg IV PUSH Q6H PRN PRN Reason: Nausea And Vomiting Timolol Maleate (Timolol Maleate 0.5% Op Soln 5 Ml Bottle) 1 drop LEFT EYE DAILY [facility] Last Admin: 04/17/23 08:41 Dose: 1 drop Sedation/Anesthesia: No previous sedation/anesthesia problems (including family history). [facility] Past Medical History Medical History (Updated 04/16/23 @ 22:43 by Rosanna Jennings PA-C) Glaucoma Hypertension Hypothyroidism Osteoarthritis Osteoporosis Type 2 diabetes mellitus Surgical History Surgical History (Updated 04/16/23 @ 16:50 by Rosanna Jennings PA-C) History of bilateral knee arthroplasty History of colonoscopy History of laparoscopic cholecystectomy Family History Family History Other No pertinent family history Social History Social History (Updated 04/16/23 @ 22:43 by Rosanna Jennings PA-C) Social History: Surrogate medical decision maker: Pierre Finley, spouse. Code status: Full code. Smoking status: Never smoker Alcohol intake: never Substance use: never Do You Feel Safe in your Home?: Yes Lack of Transportation: No Lack of Food: Never True Current Housing: I Have Housing Concerned About Future Housing: No Difficulty Paying Gas/Electric Bills: No Difficulty Paying for Meds: No Currently Unemployed: No Education: Master's Degree or Higher Difficulty w/ Childcare or Family Care: No Additional living arrangements comments: Originally from [place]. Lived in [facility] for many years before moving to [place] and more recently moving to this area to be closer to her son. She has a daughter who lives in [place]. She lives with her . 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 Spiritual care concerns: No Mod Sed Physical Exam Physical Exam Pre Procedural Exam: Normal: Appearance, Throat, Lungs, Heart Rate and Heart Rhythm an
--- NOTE | 2023-04-17 12:26 | SUR.OPER ---
SEE MODERATE SEDATION FLOWSHEET FOR MEDS ORDERED AND GIVEN DURING CT GUIDED DRAIN PLACEMENT WITH DR. AGOSTO. FENTANYL 50MCG GIVEN IVP FOR SEDATION BY MELISSA BRIONES RN PER DR. AGOSTO ORDER.
--- NOTE | 2023-04-17 13:20 | PC.NURSE ---
bedside report to nurse casey. pt awake without c/o or distress. drain to coccyx area intact and patent to drainage system.
--- NOTE | 2023-04-17 13:30 | PC.NURSE ---
Pt returned via wheelchair at this time
[2023-04-17] MEDS: POTASSIUM CHLORIDE INJ 40 MEQ in SODIUM CHLORIDE 0.9% IV 500 ML 130 MEQ IVPB (13:47)
[2023-04-17 14:15] LABS: Glucose Point of Care 89 mg/dl (65-105)
[2023-04-17] MEDS: KCL 20 MEQ/D5/0.9% SOD CHL 1,000 ML 100 ML IV CONT (17:22)
[2023-04-17 18:27] LABS: Glucose Point of Care 124 mg/dl (65-105)
[2023-04-17] MEDS: MORPHINE SULFATE (*CRX) 2 MG/ML INJ IV PUSH (20:29)
[2023-04-18 01:27] LABS: Glucose Point of Care 126 mg/dl (65-105)
[2023-04-18] MEDS: PIPERACILLN/TAZ 3.375GM/NS50ML 3.375 GM/50 ML BAG IVPB ×4 (02:11→21:09)
[2023-04-18 04:55] VITALS: BP 125/56; PULSE 66; RESP 20; TEMP 36; O2SAT 94
[2023-04-18] MEDS: KCL 20 MEQ/D5/0.9% SOD CHL 1,000 ML 100 ML IV CONT ×2 (05:41→16:56)
[2023-04-18] MEDS: LEVOTHYROXINE SODIUM INJ 100 MCG/5 ML VIAL 44 MCG IV PUSH (05:41)
[2023-04-18 06:27] LABS: Basophils Percent Auto 0.6 % (0.2-1.2); Eosinophils Absolute Auto 0.1 K/mm3 (0-0.3); Eosinophils Percent Auto 1.2 % (0-4.4); Hematocrit 31.3 % (37.0-47.0); Hemoglobin 9.6 g/dL (12.0-15.0); Immature Granulocyte Absolute 0.09 K/mm3 (0.00-0.031); Immature Granulocyte Percent A 1.8 % (0-0.5); Lymphocytes Absolute Auto 1.17 K/mm3 (0.9-3.2); Mean Corpuscular HGB Conc 30.7 g/dl (32-36); Mean Corpuscular Hemoglobin 28.7 pg (26-34); Mean Corpuscular Volume 93.4 fl (80-100); Mean Platelet Volume 9.7 fl (7.4-10.4); Monocytes Absolute Auto 0.4 K/mm3 (0.1-0.6); Monocytes Percent Auto 8.1 % (2.6-8.5); Neutrophils Absolute Auto 3.3 K/mm3 (1.3-6.7); Neutrophils Percent Auto 65.3 % (45.5-73.1); Platelet Count Result 267 k/mm3 (150-375); Red Blood Count 3.35 M/mm3 (4.2-5.4); Red Cell Distribution Width 13.6 % (11.5-14.5); White Blood Count 5.1 K/mm3 (4.5-10.0)
[2023-04-18 06:50] LABS: Anion Gap 1 mmol/L (8-16); Blood Urea Nitrogen 9 mg/dL (7-17); Calcium 8.5 mg/dL (8.4-10.2); Carbon Dioxide 26 mmol/L (22-30); Chloride 108 mmol/L (98-107); Estimated CRCL calculation 69 ml/min; Estimated Glomerular Filt Rate > 60; Glucose 136 mg/dL (65-110); Magnesium 1.9 mg/dL (1.6-2.3); Potassium 3.5 mmol/L (3.4-5.0); Sodium 135 mmol/L (137-145)
--- NOTE | 2023-04-18 07:41 | PM.IMPN ---
Progress Note: A&P Assessment and Plan (1) Diverticulitis of large intestine with abscess: Code(s): K57.20 - Diverticulitis of large intestine with perforation and abscess without bleeding Status: Acute Assessment and Plan: CT scan showed a pelvic abscess 5.5 x 2 cm which is likely due to underlying sigmoid diverticulitis and IR has been consulted for drain placement. first episode of diverticulitis. General Surgery Consulted from ED Analgesics and antiemetics are available as needed. iv zosyn procedures today: Transgluteal percutaneous pelvic peritoneal abscess drainage catheter placement. 20 mL fluid was sent for aerobic and anaerobic cultures. 38 postop day 1 Transgluteal percutaneous pelvic peritoneal abscess drainage catheter placement cultures pending drainage is purulent green and minimal drain site is without concern continue IV antibiotics general surgery notes no need for surgical intervention at this time (2) Mild dehydration: Code(s): E86.0 - Dehydration Status: Acute Assessment and Plan: In the ER, she is afebrile and mildly tachycardic with a heart rate of 110. Blood pressure elevated at 170/79. Labs showed a white blood cell count of 14,100 with a left shift, sodium 133, potassium 3.2, BUN 20, creatinine 0.6, total CK 21 3/7 a.m. blood pressure 115/51, labs today note WBC 8.1, hemoglobin 10.1, sodium 134, potassium 3.0, BUN 16, creatinine 0.6, TSH 1.010. continue IV antibiotics and IV fluids 3/8 a.m. BP 125/56. WBC 5.1, hemoglobin 9.6, sodium 135, potassium 3.5, BUN 9, creatinine 0.5 urine culture negative continue IV antibiotics continue IV fluid for supportive management per General surgery today diet advances to full liquids- will DC fluids with better oral intake- will resume all home medications and full diet as tolerated (3) Right renal mass: Code(s): N28.89 - Other specified disorders of kidney and ureter Status: Acute Assessment and Plan: Incidentally found on CT, showing 2.9 cm right renal mass, likely hyperdense cyst, however the solid mass not excluded. Radiologist recommends an ultrasound to assess for cystic versus solid lesion. Renal ultrasound has been ordered to further characterize a 2.9 cm right renal mass noted on CT. And indeterminate 1.4 cm left adrenal nodule was also noted though most likely benign. renal ultrasound notes 2.9 cm cyst in right kidney. There is no hydronephrosis. The bladder is normal. (4) Hypokalemia: Code(s): E87.6 - Hypokalemia Status: Acute Assessment and Plan: 3.2 in ED replaced on repeat labs potassium is 3.0- 40 mEq K rider ordered per General surgery then initiate current fluids D5 normal saline with 20 potassium at 100mls/hr repeat labs in a.m. 3/8 potassium 3.5 continue current fluids with potassium repeat labs in a.m. (5) Left adrenal mass: Code(s): E27.8 - Other specified disorders of adrenal gland Status: Acute Assessment and Plan: Renal ultrasound has been ordered to further characterize a 2.9 cm right renal mass noted on CT. And indeterminate 1.4 cm left adrenal nodule was also noted though most likely benign. (6) Hypertension: Code(s): I10 - Essential (primary) hypertension Status: Chronic Assessment and Plan: hydralazine ordered a.m. blood pressure 115/51 3/8 a.m. blood pressure 125/56 (7) Hypothyroidism: Code(s): E03.9 - Hypothyroidism, unspecified Status: Chronic Assessment and Plan: levothyroxine will be given IV form TSH level 1.010 04/17 will resume oral Synthroid when patient tolerates well diet (8) Type 2 diabetes mellitus: Code(s): E11.9 - Type 2 diabetes mellitus without complications Status: Acute Assessment and Plan: Initiate sliding scale insulin, Accu-Cheks, and hypoglycemic protocol home medication is Ozempic Plan The patient presented to
[2023-04-18 08:13] LABS: Glucose Point of Care 135 mg/dl (65-105)
[2023-04-18] MEDS: LATANOPROST 0.005% OP SOLN 2.5 ML BTL 1 DROP EACH EYE ×2 (08:48→21:15)
[2023-04-18] MEDS: TIMOLOL MALEATE 0.5% OP SOLN 5 ML BOTTLE 1 DROP LEFT EYE (08:48)
--- NOTE | 2023-04-18 09:56 | WPDPN ---
Progress Note: A&P Assessment and Plan (1) Diverticulitis of large intestine with abscess: Code(s): K57.20 - Diverticulitis of large intestine with perforation and abscess without bleeding Status: Acute Assessment and Plan: Pelvic abscess has been drained percutaneously in Radiology with a catheter. Symptoms pelvic pressure have improved. She continues on IV antibiotics. She tolerated clear liquids yesterday we will go ahead advanced to full liquids today. You supportive management. Will likely repeat CT scan on Friday or Friday and the abscess has resolved then we will likely remove the catheter and and continue her on oral antibiotics at home for another 10 to 14 days. At this point she has no evidence of acute surgical abdomen with need for sigmoid resection and end colostomy. Subjective Date/time seen: 04/18/23 09:56 Interval history: Patient is better today. The pressure in her pelvis is now gone after percutaneous drainage of the pelvic abscess in Radiology yesterday. Cultures are pending on the abscess. She continues on IV antibiotics. Her only complaint is at the site of placement catheter which is in the right transgluteal approach. Output from the pelvic drain is minimal purulent. No feculent material. Exam Const: General: comfortable and no acute distress Neck: Neck: supple and no JVD Resp: Effort & Inspection: normal respiratory effort Auscultation: clear to auscultation bilaterally Cardio: Rate: regular rate Rhythm: regular rhythm GI: GI Palp: Yes Soft to palpation, No Firmness to palpation present (GI), No Tenderness to palpation present (GI), No Guarding due to palpation present (GI) and No Hernia present Other: Right gluteal drain site intact without any redness. But from drain is purulent fluid. No feculent material or blood. Neuro: Speech: normal speech Sensory Exam: normal sensation Psych: Mental Status: mental status grossly normal Affect: normal affect Objective Data Vital Signs Vital Signs: Vital Signs - 24 hr 04/17/23 12:15 04/17/23 12:25 04/17/23 12:30 Temperature Pulse Rate 65 66 69 Respiratory Rate 18 18 18 Blood Pressure 131/59 L 126/55 L 133/57 L Pulse Oximetry 100 99 98 Oxygen Delivery Room Air Nasal Cannula Nasal Cannula Oxygen Flow Rate 2 2 04/17/23 12:35 04/17/23 12:40 04/17/23 12:45 Temperature Pulse Rate 81 81 81 Respiratory Rate 18 16 16 Blood Pressure 121/37 L 132/63 126/68 Pulse Oximetry 96 95 95 Oxygen Delivery Nasal Cannula Nasal Cannula Nasal Cannula Oxygen Flow Rate 2 2 2 04/17/23 12:50 04/17/23 12:55 04/17/23 13:00 Temperature Pulse Rate 76 75 73 Respiratory Rate 18 18 18 Blood Pressure 133/64 131/66 131/59 L Pulse Oximetry 97 96 98 Oxygen Delivery Nasal Cannula Nasal Cannula Nasal Cannula Oxygen Flow Rate 2 2 2 04/17/23 13:05 04/17/23 13:10 04/17/23 13:15 Temperature Pulse Rate 78 71 67 Respiratory Rate 16 16 16 Blood Pressure 137/69 133/64 129/59 L Pulse Oximetry 99 97 96 Oxygen Delivery Nasal Cannula Room Air Room Air Oxygen Flow Rate 2 04/17/23 13:30 04/17/23 20:00 04/17/23 20:25 Temperature 36.6 C 36.1 C L Pulse Rate 63 68 Respiratory Rate 16 24 H Blood Pressure 119/46 L 143/72 H Pulse Oximetry 96 96 95 Oxygen Delivery Room Air Oxygen Flow Rate 04/18/23 04:55 04/18/23 08:00 Temperature 36.0 C L Pulse Rate 66 Respiratory Rate 20 Blood Pressure 125/56 L Pulse Oximetry 94 Oxygen Delivery Room Air Oxygen Flow Rate Intake/Output Intake/Output: Intake & Output 04/15/23 04/16/23 04/17/23 04/18/23 23:59 23:59 23:59 23:59 Intake Total 2850 2662 1350 Output Total 200 850 160 Balance 2650 1812 1190 Meds/Results Medications: Active Medications Generic Name Dose Route Start Last Admin Trade Name Freq PRN Reason Stop Dose Admin Piperacillin/Tazobactam/Dextrose 3.375 gm in 50 mls @ 100 mls/hr 04/16/23 21:00 04/18/23 09:17 Zosyn 3.375 Gm/Ns
[2023-04-18 11:35] LABS: Glucose Point of Care 156 mg/dl (65-105)
[2023-04-18 14:00] VITALS: BP 137/60; PULSE 68; RESP 18; TEMP 36.6; O2SAT 98
[2023-04-18 16:46] LABS: Glucose Point of Care 149 mg/dl (65-105)
[2023-04-18 20:00] VITALS: O2SAT 98
[2023-04-18 21:05] VITALS: BP 145/58; PULSE 66; RESP 20; TEMP 36.4; O2SAT 96
[2023-04-18 21:12] LABS: Glucose Point of Care 157 mg/dl (65-105)
[2023-04-19] MEDS: PIPERACILLN/TAZ 3.375GM/NS50ML 3.375 GM/50 ML BAG IVPB ×4 (02:30→21:22)
[2023-04-19] MEDS: KCL 20 MEQ/D5/0.9% SOD CHL 1,000 ML 100 ML IV CONT (02:56)
[2023-04-19 04:45] VITALS: BP 161/83; PULSE 68; RESP 20; TEMP 36.9; O2SAT 97
[2023-04-19] MEDS: LEVOTHYROXINE SODIUM INJ 100 MCG/5 ML VIAL 44 MCG IV PUSH (05:39)
[2023-04-19 06:16] LABS: Hematocrit 32.2 % (37.0-47.0); Mean Corpuscular HGB Conc 31.1 g/dl (32-36); Mean Corpuscular Hemoglobin 28.7 pg (26-34); Mean Corpuscular Volume 92.5 fl (80-100); Mean Platelet Volume 9.6 fl (7.4-10.4); Platelet Count Result 270 k/mm3 (150-375); Red Blood Count 3.48 M/mm3 (4.2-5.4); Red Cell Distribution Width 13.6 % (11.5-14.5); White Blood Count 5.1 K/mm3 (4.5-10.0)
[2023-04-19 06:29] LABS: Alanine Aminotransferase 20 U/L (6-35); Albumin Level 2.8 g/dL (3.5-5.1); Alkaline Phosphatase 95 U/L (38-126); Anion Gap 1 mmol/L (8-16); Aspartate Amino Transferase 19 U/L (14-36); Bilirubin,Total 0.3 mg/dL (0.2-1.3); Blood Urea Nitrogen 2 mg/dL (7-17); Calcium 8.6 mg/dL (8.4-10.2); Carbon Dioxide 26 mmol/L (22-30); Chloride 108 mmol/L (98-107); Estimated CRCL calculation 72 ml/min; Estimated Glomerular Filt Rate > 60; Glucose 125 mg/dL (65-110); Magnesium 1.7 mg/dL (1.6-2.3); Potassium 3.2 mmol/L (3.4-5.0); Sodium 135 mmol/L (137-145)
[2023-04-19 07:35] LABS: Glucose Point of Care 132 mg/dl (65-105)
[2023-04-19] MEDS: TIMOLOL MALEATE 0.5% OP SOLN 5 ML BOTTLE 1 DROP LEFT EYE (07:49)
[2023-04-19 08:38] VITALS: O2SAT 97
--- NOTE | 2023-04-19 08:39 | WPDPN ---
Progress Note: A&P Assessment and Plan (1) Abscess of pelvis: Status: Acute Assessment and Plan: Pelvic abscess was drained 2 days ago in Radiology under CT guidance. White blood cell count has normalized. Cultures are still pending. She remains on Zosyn for IV antibiotics. Will repeat CT scan with IV contrast of the abdomen pelvis tomorrow to make sure the abscess has been adequately drained. Output from the drain is minimal purulent fluid. Feculent material seen. (2) Sigmoid diverticulitis: Code(s): K57.32 - Diverticulitis of large intestine without perforation or abscess without bleeding Status: Acute Assessment and Plan: Continue IV antibiotics. She is starting to have diarrhea stools. Told her to order some with her meals. We will go ahead advanced to a low-fiber diet. (3) Urinary retention: Code(s): R33.9 - Retention of urine, unspecified Status: Acute Assessment and Plan: Had urinary retention yesterday. And be straight cathed x1. If she continues to have to be straight cathed due to your attention we will go ahead and leave a Ivy catheter in place. Subjective Date/time seen: 04/19/23 08:39 Interval history: Patient complaining of having multiple episodes of diarrhea yesterday. She also had urinary retention yesterday and had a straight cath. No nausea or vomiting. She has been tolerating some full liquids. White blood cell count remains normal. Output from the drain continues to be minimal purulent fluid. Exam GI: Other: Abdomen is soft and nondistended. Minimal tenderness to palpation suprapubic region. No masses and no peritoneal signs. Objective Data Vital Signs Vital Signs: Vital Signs - 24 hr 04/18/23 14:00 04/18/23 20:00 04/18/23 21:05 Temperature 36.6 C 36.4 C Pulse Rate 68 66 Respiratory Rate 18 20 Blood Pressure 137/60 145/58 H Pulse Oximetry 98 98 96 Oxygen Delivery Room Air 04/19/23 04:45 04/19/23 08:00 04/19/23 08:38 Temperature 36.9 C Pulse Rate 68 Respiratory Rate 20 Blood Pressure 161/83 H Pulse Oximetry 97 97 Oxygen Delivery Room Air Room Air Intake/Output Intake/Output: Intake & Output 04/16/23 04/17/23 04/18/23 04/19/23 23:59 23:59 23:59 23:59 Intake Total 2850 2662 4348 1150 Output Total 200 850 760 Balance 2650 6752 8299 1150 Meds/Results Medications: Active Medications Generic Name Dose Route Start Last Admin Trade Name Freq PRN Reason Stop Dose Admin Hydrocodone Bitart/Acetaminophen 1 tab 04/19/23 08:38 Hydrocodone/Acetaminophen (*Crx) 5-325 Mg Tablet PO Q4H PRN Pain Rated 4-6 Enoxaparin Sodium 40 mg 04/19/23 09:00 Enoxaparin 40 Mg/0.4 Ml Syringe SUB-Q DAILY HANK Piperacillin/Tazobactam/Dextrose 3.375 gm in 50 mls @ 100 mls/hr 04/16/23 21:00 04/19/23 08:19 Zosyn 3.375 Gm/Ns 50 Ml IVPB Infused Q6H HANK Infusion Potassium Chloride/Dextrose/Sod Cl 1,000 mls @ 100 mls/hr 04/16/23 15:50 04/19/23 02:56 Kcl 20 Meq/D5/0.9% Sod Chl IV CONT 100 mls/hr .Q10H HANK Administration Latanoprost 1 drop 04/18/23 21:25 04/18/23 21:15 Latanoprost 0.005% Op Soln 2.5 Ml Btl EACH EYE 1 drop HS HANK Administration Levothyroxine Sodium 44 mcg 04/17/23 06:30 04/19/23 05:39 Levothyroxine Sodium Inj 100 Mcg/5 Ml Vial IV PUSH 44 mcg DAILY@0630 HANK Administration Morphine Sulfate 2 mg 04/16/23 15:50 04/17/23 20:29 Morphine Sulfate (*Crx) 2 Mg/Ml Inj IV PUSH 2 mg Q2H PRN Administration Pain Rated 7-10 Ondansetron HCl 4 mg 04/16/23 16:14 Ondansetron Inj 4 Mg/2 Ml Vial IV PUSH Q6H PRN Nausea And Vomiting Timolol Maleate 1 drop 04/17/23 09:00 04/19/23 07:49 Timolol Maleate 0.5% Op Soln 5 Ml Bottle LEFT EYE 1 drop DAILY HANK Administration Radiology Results: ITS Impressions Abdomen/Pelvis CT 04/16/23 13:26 Impression: 5.5 x 2.0 pelvic abscess, likely due to underlying sigmo
--- NOTE | 2023-04-19 08:48 | PM.IMPN ---
Progress Note: A&P Assessment and Plan (1) Diverticulitis of large intestine with abscess: Code(s): K57.20 - Diverticulitis of large intestine with perforation and abscess without bleeding Status: Acute Assessment and Plan: CT scan showed a pelvic abscess 5.5 x 2 cm which is likely due to underlying sigmoid diverticulitis and IR has been consulted for drain placement. first episode of diverticulitis. General Surgery Consulted from ED Analgesics and antiemetics are available as needed. iv zosyn procedures today: Transgluteal percutaneous pelvic peritoneal abscess drainage catheter placement. 20 mL fluid was sent for aerobic and anaerobic cultures. 04/17 postop day 1 Transgluteal percutaneous pelvic peritoneal abscess drainage catheter placement cultures pending drainage is purulent green and minimal drain site is without concern continue IV antibiotics general surgery notes no need for surgical intervention at this time 04/18 postop day 1 Transgluteal percutaneous pelvic peritoneal abscess drainage catheter placement cultures pending drain site is without concerns drainage is purulent- minimal at time of assessment labs today note WBC 5.1, hemoglobin 10, sodium 135, potassium 3.2. potassium replaced p.o. per discussion with General surgery Dr. Hameed- he has advanced her diet and it is okay to start patient's home meds p.o. continue IV antibiotics. general surgery note that plan is to repeat CT scan with IV contrast tomorrow to ensure that an abscess has been drained. (2) Mild dehydration: Code(s): E86.0 - Dehydration Status: Acute Assessment and Plan: In the ER, she is afebrile and mildly tachycardic with a heart rate of 110. Blood pressure elevated at 170/79. Labs showed a white blood cell count of 14,100 with a left shift, sodium 133, potassium 3.2, BUN 20, creatinine 0.6, total CK 21 3/7 a.m. blood pressure 115/51, labs today note WBC 8.1, hemoglobin 10.1, sodium 134, potassium 3.0, BUN 16, creatinine 0.6, TSH 1.010. continue IV antibiotics and IV fluids 3/8 a.m. BP 125/56. WBC 5.1, hemoglobin 9.6, sodium 135, potassium 3.5, BUN 9, creatinine 0.5 urine culture negative continue IV antibiotics continue IV fluid for supportive management per General surgery today diet advances to full liquids- will DC fluids with better oral intake- will resume all home medications and full diet as tolerated 3/9 AM BP 161/83. WBC 5.1, hemoglobin 10, sodium 135, potassium 3.2, BUN 2, creatinine 0.5 patient is tolerating diet advancement well patient's home medications were continued IV fluids discontinued (3) Right renal mass: Code(s): N28.89 - Other specified disorders of kidney and ureter Status: Acute Assessment and Plan: Incidentally found on CT, showing 2.9 cm right renal mass, likely hyperdense cyst, however the solid mass not excluded. Radiologist recommends an ultrasound to assess for cystic versus solid lesion. Renal ultrasound has been ordered to further characterize a 2.9 cm right renal mass noted on CT. And indeterminate 1.4 cm left adrenal nodule was also noted though most likely benign. renal ultrasound notes 2.9 cm cyst in right kidney. There is no hydronephrosis. The bladder is normal. (4) Hypokalemia: Code(s): E87.6 - Hypokalemia Status: Acute Assessment and Plan: 3.2 in ED replaced on repeat labs potassium is 3.0- 40 mEq K rider ordered per General surgery then initiate current fluids D5 normal saline with 20 potassium at 100mls/hr repeat labs in a.m. 3/8 potassium 3.5 continue current fluids with potassium repeat labs in a.m. /9 potassium 3.3 replace p.o. as patient is tolerating diet repeat labs in a.m. (5) Left adrenal mass: Code(s): E27.8 - Other specified disorders of adrenal gland Status: Acute Assessment and Plan: Renal ultrasound has been ordered to further characteri
[2023-04-19 11:32] LABS: Glucose Point of Care 129 mg/dl (65-105)
[2023-04-19] MEDS: ENOXAPARIN 40 MG/0.4 ML SYRINGE SUB-Q (13:52)
[2023-04-19] MEDS: POTASSIUM CHLORIDE 20 MEQ ER TABLET 40 MEQ PO (13:52)
[2023-04-19 14:00] VITALS: BP 150/60; PULSE 65; RESP 20; TEMP 36.8; O2SAT 98
[2023-04-19 16:33] LABS: Glucose Point of Care 113 mg/dl (65-105)
[2023-04-19 20:18] VITALS: BP 155/62; PULSE 72; RESP 16; TEMP 37; O2SAT 100
[2023-04-19] MEDS: LATANOPROST 0.005% OP SOLN 2.5 ML BTL 1 DROP EACH EYE (21:23)
[2023-04-20] MEDS: PIPERACILLN/TAZ 3.375GM/NS50ML 3.375 GM/50 ML BAG IVPB ×4 (03:11→21:27)
--- NOTE | 2023-04-20 04:05 | PC.NURSE ---
Daylight Savings Time For Daylight Savings Time Ending in the Fall - Clocks are moved back. For Daylight Savings Time Beginning in the Spring - Clocks are moved ahead. For [facility], the time of change occurs at 0200 hrs. Time is taken from the gaming surveillance observer. This entry on the patient's chart recognizes the change in time reflected during documentation. Example: 2 entries for vital signs may be charted for 0200 hrs.
[2023-04-20 05:20] VITALS: BP 150/71; PULSE 64; RESP 16; TEMP 36.3; O2SAT 98
[2023-04-20] MEDS: LEVOTHYROXINE SODIUM 88 MCG TABLET PO (05:41)
[2023-04-20 06:14] LABS: Hematocrit 33.9 % (37.0-47.0); Hemoglobin 10.8 g/dL (12.0-15.0); Mean Corpuscular HGB Conc 31.9 g/dl (32-36); Mean Corpuscular Hemoglobin 29.3 pg (26-34); Mean Corpuscular Volume 91.9 fl (80-100); Mean Platelet Volume 9.6 fl (7.4-10.4); Platelet Count Result 302 k/mm3 (150-375); Red Blood Count 3.69 M/mm3 (4.2-5.4); Red Cell Distribution Width 13.3 % (11.5-14.5); White Blood Count 5.6 K/mm3 (4.5-10.0)
[2023-04-20 06:23] LABS: Alanine Aminotransferase 19 U/L (6-35); Albumin Level 3.1 g/dL (3.5-5.1); Alkaline Phosphatase 91 U/L (38-126); Anion Gap 4 mmol/L (8-16); Aspartate Amino Transferase 20 U/L (14-36); Bilirubin,Total 0.4 mg/dL (0.2-1.3); Blood Urea Nitrogen 2 mg/dL (7-17); Carbon Dioxide 27 mmol/L (22-30); Chloride 105 mmol/L (98-107); Estimated CRCL calculation 61 ml/min; Estimated Glomerular Filt Rate > 60; Glucose 98 mg/dL (65-110); Magnesium 1.7 mg/dL (1.6-2.3); Potassium 3.4 mmol/L (3.4-5.0); Sodium 136 mmol/L (137-145)
--- NOTE | 2023-04-20 08:43 | P.PNIM_ITS ---
Progress Note: A&P Assessment and Plan (1) Diverticulitis of large intestine with abscess: Code(s): K57.20 - Diverticulitis of large intestine with perforation and abscess without bleeding Status: Acute Assessment and Plan: CT scan showed a pelvic abscess 5.5 x 2 cm which is likely due to underlying sigmoid diverticulitis and IR has been consulted for drain placement. first episode of diverticulitis. General Surgery Consulted from ED Analgesics and antiemetics are available as needed. iv zosyn procedures today: Transgluteal percutaneous pelvic peritoneal abscess drainage catheter placement. 20 mL fluid was sent for aerobic and anaerobic cultures. 04/17 * postop day 1 Transgluteal percutaneous pelvic peritoneal abscess drainage catheter placement * cultures pending * drainage is purulent green and minimal * drain site is without concern * continue IV antibiotics * general surgery notes no need for surgical intervention at this time 04/18 * postop day 2 Transgluteal percutaneous pelvic peritoneal abscess drainage catheter placement * cultures pending * drain site is without concerns * drainage is purulent- minimal at time of assessment * labs today note WBC 5.1, hemoglobin 10, sodium 135, potassium 3.2. potassium replaced p.o. * per discussion with General surgery Dr. Hameed- he has advanced her diet and it is okay to start patient's home meds p.o. continue IV antibiotics. * general surgery note that plan is to repeat CT scan with IV contrast tomorrow to ensure that an abscess has been drained. 04/19 * postop day 3 Transgluteal percutaneous pelvic peritoneal abscess drainage catheter placement * cultures pending * drain site without concern * labs today note WBC 5.6, hemoglobin 10.8, sodium 136, potassium 3.4 * repeat CT scan today- delayed to loss of IV access * general surgery note that if scans conducted and shows abscess is drained they will remove drain in 24-48 hours * continue IV antibiotics (2) Mild dehydration: Code(s): E86.0 - Dehydration Status: Acute Assessment and Plan: In the ER, she is afebrile and mildly tachycardic with a heart rate of 110. Blood pressure elevated at 170/79. Labs showed a white blood cell count of 14,100 with a left shift, sodium 133, potassium 3.2, BUN 20, creatinine 0.6, total CK 21 3/7 a.m. blood pressure 115/51, labs today note WBC 8.1, hemoglobin 10.1, sodium 134, potassium 3.0, BUN 16, creatinine 0.6, TSH 1.010. continue IV antibiotics and IV fluids 3/8 a.m. BP 125/56. WBC 5.1, hemoglobin 9.6, sodium 135, potassium 3.5, BUN 9, creatinine 0.5 urine culture negative continue IV antibiotics continue IV fluid for supportive management per General surgery today diet advances to full liquids- will DC fluids with better oral intake- will resume all home medications and full diet as tolerated 3 * AM BP 161/83. WBC 5.1, hemoglobin 10, sodium 135, potassium 3.2, BUN 2, creatinine 0.5 * patient is tolerating diet advancement well * patient's home medications were continued * IV fluids discontinued 04/19 * a.m. BP 150/71, WBC 5.6, hemoglobin 10.8, sodium 136, potassium 3.4, BUN 2, creatinine 0.6 * patient is tolerating fluids and diet well * expresses that she is experiencing some diarrhea (3) Right renal mass: Code(s): N28.89 - Other specified disorders of kidney and ureter Status: Acute Assessment and Plan: Incidentally found on CT, showing 2.9 cm right renal mass, likely hyperdense cyst, however the solid mass not excluded. Radiologist recommends an ultrasound
--- NOTE | 2023-04-20 08:43 | PM.IMPN ---
Progress Note: A&P Assessment and Plan (1) Diverticulitis of large intestine with abscess: Code(s): K57.20 - Diverticulitis of large intestine with perforation and abscess without bleeding Status: Acute Assessment and Plan: CT scan showed a pelvic abscess 5.5 x 2 cm which is likely due to underlying sigmoid diverticulitis and IR has been consulted for drain placement. first episode of diverticulitis. General Surgery Consulted from ED Analgesics and antiemetics are available as needed. iv zosyn procedures today: Transgluteal percutaneous pelvic peritoneal abscess drainage catheter placement. 20 mL fluid was sent for aerobic and anaerobic cultures. 04/17 postop day 1 Transgluteal percutaneous pelvic peritoneal abscess drainage catheter placement cultures pending drainage is purulent green and minimal drain site is without concern continue IV antibiotics general surgery notes no need for surgical intervention at this time 04/18 postop day 2 Transgluteal percutaneous pelvic peritoneal abscess drainage catheter placement cultures pending drain site is without concerns drainage is purulent- minimal at time of assessment labs today note WBC 5.1, hemoglobin 10, sodium 135, potassium 3.2. potassium replaced p.o. per discussion with General surgery Dr. Hameed- he has advanced her diet and it is okay to start patient's home meds p.o. continue IV antibiotics. general surgery note that plan is to repeat CT scan with IV contrast tomorrow to ensure that an abscess has been drained. 04/19 postop day 3 Transgluteal percutaneous pelvic peritoneal abscess drainage catheter placement cultures pending drain site without concern labs today note WBC 5.6, hemoglobin 10.8, sodium 136, potassium 3.[address] scan today- delayed to loss of IV access general surgery note that if scans conducted and shows abscess is drained they will remove drain in 24-48 hours continue IV antibiotics (2) Mild dehydration: Code(s): E86.0 - Dehydration Status: Acute Assessment and Plan: In the ER, she is afebrile and mildly tachycardic with a heart rate of 110. Blood pressure elevated at 170/79. Labs showed a white blood cell count of 14,100 with a left shift, sodium 133, potassium 3.2, BUN 20, creatinine 0.6, total CK 21 3/7 a.m. blood pressure 115/51, labs today note WBC 8.1, hemoglobin 10.1, sodium 134, potassium 3.0, BUN 16, creatinine 0.6, TSH 1.010. continue IV antibiotics and IV fluids 3/8 a.m. BP 125/56. WBC 5.1, hemoglobin 9.6, sodium 135, potassium 3.5, BUN 9, creatinine 0.5 urine culture negative continue IV antibiotics continue IV fluid for supportive management per General surgery today diet advances to full liquids- will DC fluids with better oral intake- will resume all home medications and full diet as tolerated 3/9 AM BP 161/83. WBC 5.1, hemoglobin 10, sodium 135, potassium 3.2, BUN 2, creatinine 0.5 patient is tolerating diet advancement well patient's home medications were continued IV fluids discontinued 3/10 a.m. BP 150/71, WBC 5.6, hemoglobin 10.8, sodium 136, potassium 3.4, BUN 2, creatinine 0.6 patient is tolerating fluids and diet well expresses that she is experiencing some diarrhea (3) Right renal mass: Code(s): N28.89 - Other specified disorders of kidney and ureter Status: Acute Assessment and Plan: Incidentally found on CT, showing 2.9 cm right renal mass, likely hyperdense cyst, however the solid mass not excluded. Radiologist recommends an ultrasound to assess for cystic versus solid lesion. Renal ultrasound has been ordered to further characterize a 2.9 cm right renal mass noted on CT. And indeterminate 1.4 cm left adrenal nodule was also noted though most likely benign. renal ultrasound notes 2.9 cm cyst in right kidney. There is no hydronephrosis. The bladder is normal. (4) Hypokalemia: Code(s): E87.6 - Hypokalemia Sta
[2023-04-20] MEDS: ENOXAPARIN 40 MG/0.4 ML SYRINGE SUB-Q (09:02)
[2023-04-20] MEDS: VALSARTAN 80 MG TABLET PO (09:02)
[2023-04-20] MEDS: hydroCHLOROthiazide 25 MG TABLET PO (09:02)
[2023-04-20] MEDS: TIMOLOL MALEATE 0.5% OP SOLN 5 ML BOTTLE 1 DROP LEFT EYE (09:03)
[2023-04-20] MEDS: POTASSIUM CHLORIDE 20 MEQ ER TABLET PO (09:05)
[2023-04-20 11:22] LABS: Glucose Point of Care 138 mg/dl (65-105)
[2023-04-20 13:51] VITALS: BP 153/67; PULSE 68; RESP 18; TEMP 36.6; O2SAT 97
--- NOTE | 2023-04-20 14:12 | WPDPN ---
Progress Note: A&P Assessment and Plan (1) Abscess of pelvis: Status: Acute Assessment and Plan: Abscess has been drained. Repeat CT scan abdomen pelvis today with oral and IV contrast is pending. The abscess has resolved then consider removal of the pelvic drain in next 24 to 48 hours. (2) Sigmoid diverticulitis: Code(s): K57.32 - Diverticulitis of large intestine without perforation or abscess without bleeding Status: Acute Assessment and Plan: Continue IV antibiotics. Continue low-fiber diet. Subjective Date/time seen: 04/20/23 14:12 Interval history: Patient's lower abdominal pain is still minimal. Her main complaint now is having diarrhea and having urinary frequency. Urine is nonbloody and does not burn to urinate. No blood in her diarrhea. White blood count is normal. She is afebrile. CT scan abdomen pelvis with IV and oral contrast to evaluate adequate resolution of the pelvic abscess after percutaneous drainage is pending today. She is tolerating a low-fiber diet. Exam GI: Other: Abdomen is soft and nondistended. Minimal tenderness to palpation left lower quadrant suprapubic region. Right transgluteal pelvic drain in place with minimal purulent output. Objective Data Vital Signs Vital Signs: Vital Signs - 24 hr 04/19/23 14:00 04/19/23 20:18 04/19/23 20:00 Temperature 36.8 C 37.0 C Pulse Rate 65 72 Respiratory Rate 20 16 Blood Pressure 150/60 H 155/62 H Pulse Oximetry 98 100 Oxygen Delivery Room Air 04/20/23 05:20 04/20/23 13:51 Temperature 36.3 C L 36.6 C Pulse Rate 64 68 Respiratory Rate 16 18 Blood Pressure 150/71 H 153/67 H Pulse Oximetry 98 97 Oxygen Delivery Intake/Output Intake/Output: Intake & Output 04/17/23 04/18/23 04/19/23 04/21/23 23:59 23:59 23:59 00:59 Intake Total 2662 4348 2142 218 Output Total 850 760 403 1 Balance 3973 1008 1739 217 Meds/Results Medications: Active Medications Generic Name Dose Route Start Last Admin Trade Name Freq PRN Reason Stop Dose Admin Acetaminophen 1,000 mg 04/19/23 08:38 Acetaminophen 500 Mg Tablet PO Q6H PRN Mild Pain (1-3) or Fever Hydrocodone Bitart/Acetaminophen 1 tab 03/09/24 08:38 Hydrocodone/Acetaminophen (*Crx) 5-325 Mg Tablet PO Q4H PRN Pain Rated 4-6 Enoxaparin Sodium 40 mg 04/19/23 09:00 04/20/23 09:02 Enoxaparin 40 Mg/0.4 Ml Syringe SUB-Q 40 mg DAILY HANK Administration Hydrochlorothiazide 25 mg 04/20/23 09:00 04/20/23 09:02 Hydrochlorothiazide 25 Mg Tablet PO 25 mg DAILY HANK Administration Piperacillin/Tazobactam/Dextrose 3.375 gm in 50 mls @ 100 mls/hr 04/16/23 21:00 04/20/23 09:33 Zosyn 3.375 Gm/Ns 50 Ml IVPB Infused Q6H HANK Infusion Latanoprost 1 drop 04/18/23 21:25 04/19/23 21:23 Latanoprost 0.005% Op Soln 2.5 Ml Btl EACH EYE 1 drop HS HANK Administration Levothyroxine Sodium 88 mcg 04/20/23 06:30 04/20/23 05:41 Levothyroxine Sodium 88 Mcg Tablet PO 88 mcg DAILY@0630 HANK Administration Morphine Sulfate 2 mg 04/16/23 15:50 04/17/23 20:29 Morphine Sulfate (*Crx) 2 Mg/Ml Inj IV PUSH 2 mg Q2H PRN Administration Pain Rated 7-10 Ondansetron HCl 4 mg 04/16/23 16:14 Ondansetron Inj 4 Mg/2 Ml Vial IV PUSH Q6H PRN Nausea And Vomiting Timolol Maleate 1 drop 04/17/23 09:00 04/20/23 09:03 Timolol Maleate 0.5% Op Soln 5 Ml Bottle LEFT EYE 1 drop DAILY HANK Administration Valsartan 80 mg 04/20/23 09:00 04/20/23 09:02 Valsartan 80 Mg Tablet PO 80 mg DAILY HANK Administration Radiology Results: ITS Impressions Abdomen/Pelvis CT 04/16/23 13:26 Impression: 5.5 x 2.0 pelvic abscess, likely due to underlying sigmoid diverticulitis. Small calcified fibroids. 2.9 cm right renal mass, likely hyperdense cyst, however the solid mass not excluded. Ultrasound recommended to assess for cystic versus solid lesion. 1.4 c
[2023-04-20] MEDS: ACETAMINOPHEN 500 MG TABLET 1000 MG PO ×2 (15:08→21:30)
[2023-04-20 16:13] LABS: Glucose Point of Care 91 mg/dl (65-105)
[2023-04-20 20:00] VITALS: BP 147/67; PULSE 71; RESP 20; TEMP 36.2; O2SAT 98
[2023-04-20 20:27] LABS: Glucose Point of Care 129 mg/dl (65-105)
[2023-04-20] MEDS: LATANOPROST 0.005% OP SOLN 2.5 ML BTL 1 DROP EACH EYE (21:28)
[2023-04-21] MEDS: PIPERACILLN/TAZ 3.375GM/NS50ML 3.375 GM/50 ML BAG IVPB ×4 (02:43→20:11)
[2023-04-21 04:35] VITALS: BP 155/74; PULSE 59; RESP 20; TEMP 35.7; O2SAT 98
[2023-04-21] MEDS: LEVOTHYROXINE SODIUM 88 MCG TABLET PO (05:57)
[2023-04-21 06:14] LABS: Hemoglobin 10.9 g/dL (12.0-15.0); Mean Corpuscular HGB Conc 32.1 g/dl (32-36); Mean Corpuscular Hemoglobin 29.1 pg (26-34); Mean Corpuscular Volume 90.7 fl (80-100); Mean Platelet Volume 9.4 fl (7.4-10.4); Platelet Count Result 334 k/mm3 (150-375); Red Blood Count 3.75 M/mm3 (4.2-5.4); Red Cell Distribution Width 13.6 % (11.5-14.5); White Blood Count 5.9 K/mm3 (4.5-10.0)
[2023-04-21 06:33] LABS: Alanine Aminotransferase 19 U/L (6-35); Albumin Level 3.1 g/dL (3.5-5.1); Alkaline Phosphatase 83 U/L (38-126); Anion Gap 0 mmol/L (8-16); Aspartate Amino Transferase 21 U/L (14-36); Bilirubin,Total 0.5 mg/dL (0.2-1.3); Blood Urea Nitrogen 5 mg/dL (7-17); Calcium 9.1 mg/dL (8.4-10.2); Carbon Dioxide 33 mmol/L (22-30); Chloride 101 mmol/L (98-107); Estimated CRCL calculation 59 ml/min; Estimated Glomerular Filt Rate > 60; Glucose 93 mg/dL (65-110); Magnesium 1.8 mg/dL (1.6-2.3); Potassium 3.2 mmol/L (3.4-5.0); Sodium 134 mmol/L (137-145)
--- NOTE | 2023-04-21 07:08 | P.PNIM_ITS ---
Progress Note: A&P Assessment and Plan (1) Diverticulitis of large intestine with abscess: Code(s): K57.20 - Diverticulitis of large intestine with perforation and abscess without bleeding Status: Acute Assessment and Plan: CT scan showed a pelvic abscess 5.5 x 2 cm which is likely due to underlying sigmoid diverticulitis and IR has been consulted for drain placement. first episode of diverticulitis. General Surgery Consulted from ED Analgesics and antiemetics are available as needed. iv zosyn procedures today: Transgluteal percutaneous pelvic peritoneal abscess drainage catheter placement. 20 mL fluid was sent for aerobic and anaerobic cultures. 04/17 * postop day 1 Transgluteal percutaneous pelvic peritoneal abscess drainage catheter placement * cultures pending * drainage is purulent green and minimal * drain site is without concern * continue IV antibiotics * general surgery notes no need for surgical intervention at this time 04/18 * postop day 2 Transgluteal percutaneous pelvic peritoneal abscess drainage catheter placement * cultures pending * drain site is without concerns * drainage is purulent- minimal at time of assessment * labs today note WBC 5.1, hemoglobin 10, sodium 135, potassium 3.2. potassium replaced p.o. * per discussion with General surgery Dr. Hameed- he has advanced her diet and it is okay to start patient's home meds p.o. continue IV antibiotics. * general surgery note that plan is to repeat CT scan with IV contrast tomorrow to ensure that an abscess has been drained. 04/19 * postop day 3 Transgluteal percutaneous pelvic peritoneal abscess drainage catheter placement * cultures pending * drain site without concern * labs today note WBC 5.6, hemoglobin 10.8, sodium 136, potassium 3.4 * repeat CT scan today- delayed to loss of IV access * general surgery note that if scans conducted and shows abscess is drained they will remove drain in 24-48 hours * continue IV antibiotics 04/20 * postop day 4 Transgluteal percutaneous pelvic peritoneal abscess drainage ca theter placement * Cultures with preliminary results and show Bacteroides fragilis- Covered by current IV zosyn * drain site without concern * labs today note WBC 5.9, hemoglobin 10.9, sodium 134, potassium 3.4 * Repeat CT Abdomen/Pelvis notes perisigmoid abscess with percutaneous drain in expected position- worsened from 04/16/23. 15mm left adrenal mass. 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 * Continue IV abx * Continue to appreciate general surgery recommendations of care (2) Mild dehydration: Code(s): E86.0 - Dehydration Status: Acute Assessment and Plan: In the ER, she is afebrile and mildly tachycardic with a heart rate of 110. Blood pressure elevated at 170/79. Labs showed a white blood cell count of 14,100 with a left shift, sodium 133, potassium 3.2, BUN 20, creatinine 0.6, total CK 21 3/7 a.m. blood pressure 115/51, labs today note WBC 8.1, hemoglobin 10.1, sodium 134, potassium 3.0, BUN 16, creatinine 0.6, TSH 1.010. continue IV antibiotics and IV fluids 3/8 a.m. BP 125/56. WBC 5.1, hemoglobin 9.6, sodium 135, potassium 3.5, BUN 9, creatinine 0.5 urine culture negative continue IV antibiotics continue IV fluid for supportive management per General surgery today diet advances to full liquids- will DC fluids with better oral intake- will resume all home medications and full diet as tolerated 3/9 * AM BP 161/83. WBC 5.1, hemoglobin 10, sodium 135, potassium 3.2, BUN 2, cre atinine 0.5 * patient is tolerating diet ad
--- NOTE | 2023-04-21 07:08 | PM.IMPN ---
Progress Note: A&P Assessment and Plan (1) Diverticulitis of large intestine with abscess: Code(s): K57.20 - Diverticulitis of large intestine with perforation and abscess without bleeding Status: Acute Assessment and Plan: CT scan showed a pelvic abscess 5.5 x 2 cm which is likely due to underlying sigmoid diverticulitis and IR has been consulted for drain placement. first episode of diverticulitis. General Surgery Consulted from ED Analgesics and antiemetics are available as needed. iv zosyn procedures today: Transgluteal percutaneous pelvic peritoneal abscess drainage catheter placement. 20 mL fluid was sent for aerobic and anaerobic cultures. 04/17 postop day 1 Transgluteal percutaneous pelvic peritoneal abscess drainage catheter placement cultures pending drainage is purulent green and minimal drain site is without concern continue IV antibiotics general surgery notes no need for surgical intervention at this time 04/18 postop day 2 Transgluteal percutaneous pelvic peritoneal abscess drainage catheter placement cultures pending drain site is without concerns drainage is purulent- minimal at time of assessment labs today note WBC 5.1, hemoglobin 10, sodium 135, potassium 3.2. potassium replaced p.o. per discussion with General surgery Dr. Hameed- he has advanced her diet and it is okay to start patient's home meds p.o. continue IV antibiotics. general surgery note that plan is to repeat CT scan with IV contrast tomorrow to ensure that an abscess has been drained. 04/19 postop day 3 Transgluteal percutaneous pelvic peritoneal abscess drainage catheter placement cultures pending drain site without concern labs today note WBC 5.6, hemoglobin 10.8, sodium 136, potassium 3.[address] scan today- delayed to loss of IV access general surgery note that if scans conducted and shows abscess is drained they will remove drain in 24-48 hours continue IV antibiotics 04/20 postop day 4 Transgluteal percutaneous pelvic peritoneal abscess drainage catheter placement Cultures with preliminary results and show Bacteroides fragilis- Covered by current IV zosyn drain site without concern labs today note WBC 5.9, hemoglobin 10.9, sodium 134, potassium 3.[address] Abdomen/Pelvis notes perisigmoid abscess with percutaneous drain in expected position- worsened from 04/16/23. 15mm left adrenal mass. 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 Continue IV abx Continue to appreciate general surgery recommendations of care (2) Mild dehydration: Code(s): E86.0 - Dehydration Status: Acute Assessment and Plan: In the ER, she is afebrile and mildly tachycardic with a heart rate of 110. Blood pressure elevated at 170/79. Labs showed a white blood cell count of 14,100 with a left shift, sodium 133, potassium 3.2, BUN 20, creatinine 0.6, total CK 21 3/7 a.m. blood pressure 115/51, labs today note WBC 8.1, hemoglobin 10.1, sodium 134, potassium 3.0, BUN 16, creatinine 0.6, TSH 1.010. continue IV antibiotics and IV fluids 3/8 a.m. BP 125/56. WBC 5.1, hemoglobin 9.6, sodium 135, potassium 3.5, BUN 9, creatinine 0.5 urine culture negative continue IV antibiotics continue IV fluid for supportive management per General surgery today diet advances to full liquids- will DC fluids with better oral intake- will resume all home medications and full diet as tolerated 3/9 AM BP 161/83. WBC 5.1, hemoglobin 10, sodium 135, potassium 3.2, BUN 2, creatinine 0.5 patient is tolerating diet advancement well patient's home medications were continued IV fluids discontinued 3 a.m. BP 150/71, WBC 5.6, hemoglobin 10.8, sodium 136, potassium 3.4, BUN 2, creatinine 0.6 patient is tolerating fluids and diet well expresses that she is experiencing some diarrhea 3 a.m. BP 155/74 WBC 5.9, hemoglobin 10.9, sodium 134, potassium 3.4 Tolerating diet Denies fu
[2023-04-21] MEDS: hydroCHLOROthiazide 25 MG TABLET PO (08:52)
[2023-04-21] MEDS: ENOXAPARIN 40 MG/0.4 ML SYRINGE SUB-Q (08:52)
[2023-04-21] MEDS: VALSARTAN 80 MG TABLET PO (08:52)
[2023-04-21] MEDS: TIMOLOL MALEATE 0.5% OP SOLN 5 ML BOTTLE 1 DROP LEFT EYE (08:54)
[2023-04-21 11:55] LABS: Glucose Point of Care 102 mg/dl (65-105)
--- NOTE | 2023-04-21 13:32 | PM.PNGS ---
Progress Note: A&P Assessment and Plan (1) Abscess of pelvis: Status: Acute Assessment and Plan: Pelvic abscess s/p percutaneous drainage on 04/16 with nearly no output over the past few days. Repeat CT scan of the abdomen and pelvis yesterday showed an increase in size of the perisigmoid abscess with percutaneous drain in expected position. Upon exam today, the 3-way stopcock on the drain was turned off blocking flow of drainage. When this was turned, there was immediate flow of over 10 cc into the bag. It is unclear how long this was turned off, but this could be the issue with this being inadequately drained. I will also try flushing the drain today to ensure patency. Continue IV antibiotics. (2) Sigmoid diverticulitis: Code(s): K57.32 - Diverticulitis of large intestine without perforation or abscess without bleeding Status: Acute Assessment and Plan: Clinically improving. WBC remains normal. Continue IV antibiotics. Continue low-fiber diet. Plan I have discussed the patient's case and plan of care with Dr. Hameed. Subjective Subjective Date/Time Seen: 04/21/23 13:32 Interval history: Chart reviewed since last seen. She had her transgluteal perc drian placed on 04/17/23. She had a repeat CT yesterday showing interval increase in size of the pelvic abscess with the percutaneous drain in expected position. She has not had hardly any output from the drain documented since 04/17. Patient now seen. She reports some generalized weakness but has not really gotten out of the bed much other than to walk to the bathroom. She denies any abdominal pain. She reports only some minor discomfort where the drain is located. She is tolerating a solid diet. She denies nausea or vomiting. Her diarrhea has improved. She had another loose stool this morning. Exam Const: General: comfortable and no acute distress GI: Inspection: non-distended GI Palp: Yes Soft to palpation, Yes Tenderness to palpation present (GI) (very mild tenderness in the LLQ), No Guarding due to palpation present (GI) and No Rebound tenderness present Auscultation: normal bowel sounds Other: right transgluteal percutaneous drain in place with no output in the drainage bag, as I inspected up the tubing, the 3-way stopcock was turned towards the patient which I then turned up to open the flow and immediate flow of jaime drainage began flowing through the tubing and into the drainage bag Objective Data Vital Signs Vital Signs: Vital Signs - 24 hr 04/20/23 13:51 04/20/23 20:00 04/20/23 20:00 Temperature 97.8 F 97.2 F L Pulse Rate 68 71 Respiratory Rate 18 20 Blood Pressure 153/67 H 147/67 H Pulse Oximetry 97 98 Oxygen Delivery Room Air 04/21/23 04:35 04/21/23 08:00 Temperature 96.3 F L Pulse Rate 59 L Respiratory Rate 20 Blood Pressure 155/74 H Pulse Oximetry 98 Oxygen Delivery Room Air Intake/Output Intake/Output: Intake & Output 04/18/23 04/19/23 04/20/23 04/21/23 22:59 22:59 23:59 23:59 Intake Total 580 Output Total 1400 Balance -820 Meds/Results Medications: Active Medications Generic Name Dose Route Start Last Admin Trade Name Freq PRN Reason Stop Dose Admin Acetaminophen 1,000 mg 04/19/23 08:38 04/20/23 21:30 Acetaminophen 500 Mg Tablet PO 1,000 mg Q6H PRN Administration Mild Pain (1-3) or Fever Hydrocodone Bitart/Acetaminophen 1 tab 04/19/23 08:38 Hydrocodone/Acetaminophen (*Crx) 5-325 Mg Tablet PO Q4H PRN Pain Rated 4-6 Enoxaparin Sodium 40 mg 04/19/23 09:00 04/21/23 08:52 Enoxaparin 40 Mg/0.4 Ml Syringe SUB-Q 40 mg DAILY HANK Administration Hydrochlorothiazide 25 mg 04/20/23 09:00 04/21/23 08:52 Hydrochlorothiazide 25 Mg Tablet PO 25 mg DAILY HANK Administration Piperacillin/Tazobactam/Dextrose 3.375 gm in 50 mls @ 100 mls/hr 04/16/23 21:00 04/21/23 08:52 Zosyn 3.375 Gm/Ns 50 Ml IVPB 100 mls/hr Q6H HANK Administratio
[2023-04-21] MEDS: POTASSIUM CHLORIDE 20 MEQ ER TABLET 40 MEQ PO (13:48)
[2023-04-21 14:00] VITALS: BP 147/67; PULSE 78; RESP 18; TEMP 36.1; O2SAT 95
[2023-04-21 16:33] LABS: Glucose Point of Care 113 mg/dl (65-105)
[2023-04-21 19:50] VITALS: BP 159/69; PULSE 72; RESP 20; TEMP 36.1; O2SAT 96
[2023-04-21 20:00] VITALS: PULSE 78; RESP 18; O2SAT 95
[2023-04-21] MEDS: LATANOPROST 0.005% OP SOLN 2.5 ML BTL 1 DROP EACH EYE (20:12)
[2023-04-21 20:25] LABS: Glucose Point of Care 153 mg/dl (65-105)
[2023-04-21] MEDS: ACETAMINOPHEN 500 MG TABLET 1000 MG PO (20:43)
[2023-04-22] MEDS: PIPERACILLN/TAZ 3.375GM/NS50ML 3.375 GM/50 ML BAG IVPB ×4 (02:16→21:27)
[2023-04-22 04:25] VITALS: BP 166/76; PULSE 71; RESP 18; TEMP 36.3; O2SAT 97
[2023-04-22] MEDS: LEVOTHYROXINE SODIUM 88 MCG TABLET PO (05:23)
[2023-04-22 07:11] LABS: Hematocrit 35.2 % (37.0-47.0); Mean Corpuscular HGB Conc 31.3 g/dl (32-36); Mean Corpuscular Hemoglobin 28.9 pg (26-34); Mean Corpuscular Volume 92.4 fl (80-100); Mean Platelet Volume 9.5 fl (7.4-10.4); Platelet Count Result 366 k/mm3 (150-375); Red Blood Count 3.81 M/mm3 (4.2-5.4); Red Cell Distribution Width 13.5 % (11.5-14.5); White Blood Count 5.8 K/mm3 (4.5-10.0)
[2023-04-22 07:20] VITALS: BP 153/75; PULSE 63; RESP 16; TEMP 36.6; O2SAT 94
[2023-04-22 07:37] LABS: Alanine Aminotransferase 18 U/L (6-35); Albumin Level 3.1 g/dL (3.5-5.1); Alkaline Phosphatase 77 U/L (38-126); Anion Gap 1 mmol/L (8-16); Aspartate Amino Transferase 23 U/L (14-36); Bilirubin,Total 0.5 mg/dL (0.2-1.3); Blood Urea Nitrogen 7 mg/dL (7-17); Calcium 9.1 mg/dL (8.4-10.2); Carbon Dioxide 31 mmol/L (22-30); Chloride 101 mmol/L (98-107); Estimated CRCL calculation 58 ml/min; Estimated Glomerular Filt Rate > 60; Glucose 93 mg/dL (65-110); Magnesium 1.8 mg/dL (1.6-2.3); Potassium 3.3 mmol/L (3.4-5.0); Sodium 133 mmol/L (137-145)
[2023-04-22 08:04] LABS: Glucose Point of Care 91 mg/dl (65-105)
[2023-04-22] MEDS: hydroCHLOROthiazide 25 MG TABLET PO (08:49)
[2023-04-22] MEDS: ENOXAPARIN 40 MG/0.4 ML SYRINGE SUB-Q (08:49)
[2023-04-22] MEDS: VALSARTAN 80 MG TABLET PO (08:49)
[2023-04-22] MEDS: TIMOLOL MALEATE 0.5% OP SOLN 5 ML BOTTLE 1 DROP LEFT EYE (08:51)
--- NOTE | 2023-04-22 10:55 | PCPTNOTE ---
Patient states she is tired at this time and requests PT return later today. PT will continue to follow per plan of care.
[2023-04-22 11:32] LABS: Glucose Point of Care 185 mg/dl (65-105)
--- NOTE | 2023-04-22 12:03 | PC.NURSE ---
On 04/22/23, the student, Jeri Burton, provided care and completed [facility] documentation on this patient. I have reviewed the student's documentation and agree with the findings.
--- NOTE | 2023-04-22 12:11 | PM.PNGS ---
Progress Note: A&P Assessment and Plan (1) Abscess of pelvis: Status: Acute Assessment and Plan: Pelvic abscess s/p percutaneous drainage on 04/16 with better output after the stopcock was adjusted and the drain was flushed yesterday. Continue to monitor perc drain again today. Continue IV antibiotics. Will plan to repeat a CT scan of the abdomen and pelvis in the next 1-2 days to re-evaluate the abscess. (2) Sigmoid diverticulitis: Code(s): K57.32 - Diverticulitis of large intestine without perforation or abscess without bleeding Status: Acute Assessment and Plan: Clinically improving. WBC remains normal. Continue IV antibiotics. Continue low-fiber diet. Plan I have discussed the patient's case and plan of care with Dr. Hameed. Subjective Subjective Date/Time Seen: 04/22/23 10:31 Patient reports: no new complaints, flatus, bowel movement and afebrile Interval history: Patient feels well today. No acute changes overnight. She reports only some mild discomfort where the transgluteal perc drain is located. No abdominal pain, nausea, or vomiting. She is tolerating a solid diet. Her diarrhea is improving and becoming slightly more formed. Perc drain with much better output since the stopcock was adjusted and it was flushed yesterday. Exam Const: General: comfortable and no acute distress GI: Inspection: non-distended GI Palp: Yes Soft to palpation, No Tenderness to palpation present (GI) and No Guarding due to palpation present (GI) Auscultation: normal bowel sounds Other: right transgluteal percutaneous drain in place with scant jaime drainage in the bag today, drain appears to be functioning well Objective Data Vital Signs Vital Signs: Vital Signs - 24 hr 04/21/23 14:00 04/21/23 20:00 04/21/23 19:50 Temperature 97.0 F L 97 F L Pulse Rate 78 78 72 Respiratory Rate 18 18 20 Blood Pressure 147/67 H 159/69 H Pulse Oximetry 95 95 96 Oxygen Delivery Room Air 04/22/23 04:25 04/22/23 07:20 04/22/23 08:50 Temperature 97.4 F L 97.9 F Pulse Rate 71 63 Respiratory Rate 18 16 Blood Pressure 166/76 H 153/75 H Pulse Oximetry 97 94 Oxygen Delivery Room Air Intake/Output Intake/Output: Intake & Output 04/19/23 04/20/23 04/21/23 04/22/23 22:59 23:59 23:59 23:59 Intake Total 1870 413 Output Total 0211 575 Balance -660 45 Meds/Results Medications: Active Medications Generic Name Dose Route Start Last Admin Trade Name Freq PRN Reason Stop Dose Admin Acetaminophen 1,000 mg 04/19/23 08:38 04/21/23 20:43 Acetaminophen 500 Mg Tablet PO 1,000 mg Q6H PRN Administration Mild Pain (1-3) or Fever Hydrocodone Bitart/Acetaminophen 1 tab 04/19/23 08:38 Hydrocodone/Acetaminophen (*Crx) 5-325 Mg Tablet PO Q4H PRN Pain Rated 4-6 Enoxaparin Sodium 40 mg 04/19/23 09:00 04/22/23 08:49 Enoxaparin 40 Mg/0.4 Ml Syringe SUB-Q 40 mg DAILY HANK Administration Hydrochlorothiazide 25 mg 04/20/23 09:00 04/22/23 08:49 Hydrochlorothiazide 25 Mg Tablet PO 25 mg DAILY HANK Administration Piperacillin/Tazobactam/Dextrose 3.375 gm in 50 mls @ 100 mls/hr 04/16/23 21:00 04/22/23 10:08 Zosyn 3.375 Gm/Ns 50 Ml IVPB Infused Q6H HANK Infusion Latanoprost 1 drop 04/18/23 21:25 04/21/23 20:12 Latanoprost 0.005% Op Soln 2.5 Ml Btl EACH EYE 1 drop HS HANK Administration Levothyroxine Sodium 88 mcg 04/20/23 06:30 04/22/23 05:23 Levothyroxine Sodium 88 Mcg Tablet PO 88 mcg DAILY@0630 HANK Administration Morphine Sulfate 2 mg 04/16/23 15:50 04/17/23 20:29 Morphine Sulfate (*Crx) 2 Mg/Ml Inj IV PUSH 2 mg Q2H PRN Administration Pain Rated 7-10 Ondansetron HCl 4 mg 04/16/23 16:14 Ondansetron Inj 4 Mg/2 Ml Vial IV PUSH Q6H PRN Nausea And Vomiting Timolol Maleate 1 drop 04/17/23 09:00 04/22/23 08:51 Timolol Maleate 0.5% Op Soln 5 Ml Bottle LEFT EYE 1 drop DAILY HANK Adm
[2023-04-22 14:24] VITALS: BP 147/64; PULSE 65; RESP 18; TEMP 36.2; O2SAT 96
--- NOTE | 2023-04-22 15:09 | PCPTNOTE ---
Patient declined PT this afternoon stating she has had diarrhea most of the day and is fatigued. Patient states she had a big wash up this afternoon and is tired. PT will continue to follow per plan of care.
[2023-04-22] MEDS: POTASSIUM CHLORIDE 20 MEQ ER TABLET 40 MEQ PO (15:30)
[2023-04-22 17:14] LABS: Glucose Point of Care 86 mg/dl (65-105)
--- NOTE | 2023-04-22 17:21 | PM.IMPN ---
Progress Note: A&P Assessment and Plan (1) Urinary retention: Code(s): R33.9 - Retention of urine, unspecified Status: Acute (2) Abscess of pelvis: Status: Acute Plan Drain in place. Surgery managing. No evidence of sepsis. Continue Zosyn. Full code. DVT prophylaxis on board. Replace potassium again today. Check magnesium as well. Perform voiding trial when the abscess is resolved. Subjective Date/time seen: 04/22/23 17:21 Interval history: No acute overnight events. Patient denies abdominal pain nausea or vomiting or diarrhea. Review of Systems Review of Systems: All systems reviewed & are unremarkable except as noted in HPI and below (Subjective) Exam Const: General: comfortable and no acute distress Eyes: Pupils: Equal, round and reactive pupils present Resp: Effort & Inspection: normal respiratory effort Auscultation: clear to auscultation bilaterally Cardio: Rate: regular rate Rhythm: regular rhythm GI: GI Palp: Yes Soft to palpation Extrem: General: no edema Objective Data Vital Signs Vital Signs: Vital Signs - 24 hr 04/21/23 20:00 04/21/23 19:50 04/22/23 04:25 Temperature 97 F L 97.4 F L Pulse Rate 78 72 71 Respiratory Rate 18 20 18 Blood Pressure 159/69 H 166/76 H Pulse Oximetry 95 96 97 Oxygen Delivery Room Air 04/22/23 07:20 04/22/23 08:50 04/22/23 14:24 Temperature 97.9 F 97.1 F L Pulse Rate 63 65 Respiratory Rate 16 18 Blood Pressure 153/75 H 147/64 H Pulse Oximetry 94 96 Oxygen Delivery Room Air Intake/Output Intake/Output: Intake & Output 04/19/23 04/20/23 04/21/23 04/22/23 22:59 23:59 23:59 23:59 Intake Total 1870 720 Output Total 2530 7700 Balance -761 -452 Meds/Results Medications: Active Medications Generic Name Dose Route Start Last Admin Trade Name Freq PRN Reason Stop Dose Admin Acetaminophen 1,000 mg 04/19/23 08:38 04/21/23 20:43 Acetaminophen 500 Mg Tablet PO 1,000 mg Q6H PRN Administration Mild Pain (1-3) or Fever Hydrocodone Bitart/Acetaminophen 1 tab 04/19/23 08:38 Hydrocodone/Acetaminophen (*Crx) 5-325 Mg Tablet PO Q4H PRN Pain Rated 4-6 Enoxaparin Sodium 40 mg 04/19/23 09:00 04/22/23 08:49 Enoxaparin 40 Mg/0.4 Ml Syringe SUB-Q 40 mg DAILY HANK Administration Hydrochlorothiazide 25 mg 04/20/23 09:00 04/22/23 08:49 Hydrochlorothiazide 25 Mg Tablet PO 25 mg DAILY HANK Administration Piperacillin/Tazobactam/Dextrose 3.375 gm in 50 mls @ 100 mls/hr 04/16/23 21:00 04/22/23 16:00 Zosyn 3.375 Gm/Ns 50 Ml IVPB Infused Q6H HANK Infusion Latanoprost 1 drop 04/18/23 21:25 04/21/23 20:12 Latanoprost 0.005% Op Soln 2.5 Ml Btl EACH EYE 1 drop HS HANK Administration Levothyroxine Sodium 88 mcg 04/20/23 06:30 04/22/23 05:23 Levothyroxine Sodium 88 Mcg Tablet PO 88 mcg DAILY@0630 HANK Administration Morphine Sulfate 2 mg 04/16/23 15:50 04/17/23 20:29 Morphine Sulfate (*Crx) 2 Mg/Ml Inj IV PUSH 2 mg Q2H PRN Administration Pain Rated 7-10 Ondansetron HCl 4 mg 04/16/23 16:14 Ondansetron Inj 4 Mg/2 Ml Vial IV PUSH Q6H PRN Nausea And Vomiting Timolol Maleate 1 drop 04/17/23 09:00 04/22/23 08:51 Timolol Maleate 0.5% Op Soln 5 Ml Bottle LEFT EYE 1 drop DAILY HANK Administration Valsartan 80 mg 04/20/23 09:00 04/22/23 08:49 Valsartan 80 Mg Tablet PO 80 mg DAILY HANK Administration Radiology Results: ITS Impressions Renal Ultrasound 04/16/23 20:04 IMPRESSION: 1. 2.9 cm cyst in right kidney. Catheter Placement CT 04/17/23 15:04 IMPRESSION: 1. Successful CT-guided right transgluteal pelvic abscess drainage catheter placement. 2. 20 mL fluid was sent for aerobic and anaerobic cultures. 3. The catheter will be managed by Dr. Constantino. Abdomen/Pelvis CT 04/20/23 16:35 IMPRESSION: 1. Perisigmoid abscess with percutaneous drain in expected position, worsened
[2023-04-22 19:30] VITALS: BP 164/64; PULSE 92; RESP 20; TEMP 36.6; O2SAT 97
[2023-04-22 20:09] LABS: Glucose Point of Care 176 mg/dl (65-105)
[2023-04-22] MEDS: LATANOPROST 0.005% OP SOLN 2.5 ML BTL 1 DROP EACH EYE (21:27)
[2023-04-22] MEDS: ACETAMINOPHEN 500 MG TABLET 1000 MG PO (21:31)
[2023-04-23] MEDS: PIPERACILLN/TAZ 3.375GM/NS50ML 3.375 GM/50 ML BAG IVPB ×4 (03:37→20:41)
[2023-04-23 04:25] VITALS: BP 144/68; PULSE 65; RESP 20; TEMP 35.8; O2SAT 98
[2023-04-23] MEDS: LEVOTHYROXINE SODIUM 88 MCG TABLET PO (05:29)
[2023-04-23 07:01] LABS: Hematocrit 36.8 % (37.0-47.0); Hemoglobin 11.5 g/dL (12.0-15.0); Mean Corpuscular HGB Conc 31.3 g/dl (32-36); Mean Corpuscular Hemoglobin 28.8 pg (26-34); Mean Platelet Volume 9.2 fl (7.4-10.4); Platelet Count Result 383 k/mm3 (150-375); Red Cell Distribution Width 13.6 % (11.5-14.5); White Blood Count 6.9 K/mm3 (4.5-10.0)
[2023-04-23 07:08] LABS: Alanine Aminotransferase 20 U/L (6-35); Albumin Level 3.3 g/dL (3.5-5.1); Alkaline Phosphatase 78 U/L (38-126); Anion Gap 3 mmol/L (8-16); Aspartate Amino Transferase 26 U/L (14-36); Bilirubin,Total 0.5 mg/dL (0.2-1.3); Blood Urea Nitrogen 8 mg/dL (7-17); Calcium 9.4 mg/dL (8.4-10.2); Carbon Dioxide 31 mmol/L (22-30); Chloride 101 mmol/L (98-107); Estimated CRCL calculation 58 ml/min; Estimated Glomerular Filt Rate > 60; Glucose 95 mg/dL (65-110); Magnesium 1.9 mg/dL (1.6-2.3); Potassium 3.3 mmol/L (3.4-5.0); Sodium 135 mmol/L (137-145)
[2023-04-23 07:20] LABS: Glucose Point of Care 126 mg/dl (65-105)
[2023-04-23] MEDS: VALSARTAN 80 MG TABLET PO (09:40)
[2023-04-23] MEDS: hydroCHLOROthiazide 25 MG TABLET PO (09:40)
[2023-04-23] MEDS: ENOXAPARIN 40 MG/0.4 ML SYRINGE SUB-Q (09:41)
[2023-04-23] MEDS: TIMOLOL MALEATE 0.5% OP SOLN 5 ML BOTTLE 1 DROP LEFT EYE (09:42)
[2023-04-23] MEDS: POTASSIUM CHLORIDE 20 MEQ PACKET (FOR LIQUID) 40 MEQ PO (09:42)
[2023-04-23 09:46] VITALS: BP 127/62; PULSE 81; RESP 16; O2SAT 94
--- NOTE | 2023-04-23 09:47 | PM.PNGS ---
Progress Note: A&P Assessment and Plan (1) Abscess of pelvis: Status: Acute Assessment and Plan: Pelvic abscess s/p percutaneous drainage on 04/16. Output diminishing with only 15 cc out over the past 24 hours, and only a scant amount this morning. Continue IV antibiotics. Abscess culture showed scant growth of bacteroides fragilis. Will plan to repeat a CT scan of the abdomen and pelvis with water soluble rectal contrast tomorrow morning to re-evaluate. (2) Sigmoid diverticulitis: Code(s): K57.32 - Diverticulitis of large intestine without perforation or abscess without bleeding Status: Acute Assessment and Plan: Clinically improving with antibiotics. WBC remains normal. Continue IV antibiotics. Continue low-fiber diet. Plan I have discussed the patient's case and plan of care with Dr. Hameed. Subjective Subjective Date/Time Seen: 04/23/23 09:47 Patient reports: no new complaints, tolerating a regular diet, flatus, bowel movement and afebrile Interval history: Patient doing well. No acute changes overnight. She didn't sleep well last night, but not for any specific reason. No abdominal pain, nausea, or vomiting. Review of Systems Review of Systems: All systems reviewed & are unremarkable except as noted in HPI and below Exam Const: General: comfortable and no acute distress GI: Inspection: non-distended GI Palp: Yes Soft to palpation, No Tenderness to palpation present (GI), No Guarding due to palpation present (GI) and No Rebound tenderness present Auscultation: normal bowel sounds Other: right transgluteal percutaneous drain in place with scant brown drainage in the bag today, drain appears to be functioning well Objective Data Vital Signs Vital Signs: Vital Signs - 24 hr 04/22/23 14:24 04/22/23 19:30 04/23/23 04:25 Temperature 97.1 F L 98 F 96.5 F L Pulse Rate 65 92 65 Respiratory Rate 18 20 20 Blood Pressure 147/64 H 164/64 H 144/68 H Pulse Oximetry 96 97 98 04/23/23 09:46 Temperature Pulse Rate 81 Respiratory Rate 16 Blood Pressure 127/62 Pulse Oximetry 94 Intake/Output Intake/Output: Intake & Output 04/20/23 04/21/23 04/22/23 04/23/23 23:59 23:59 23:59 23:59 Intake Total 1870 1160 672 Output Total 2530 1460 555 Balance -660 300 117 Meds/Results Medications: Active Medications Generic Name Dose Route Start Last Admin Trade Name Freq PRN Reason Stop Dose Admin Acetaminophen 1,000 mg 04/19/23 08:38 04/22/23 21:31 Acetaminophen 500 Mg Tablet PO 1,000 mg Q6H PRN Administration Mild Pain (1-3) or Fever Hydrocodone Bitart/Acetaminophen 1 tab 04/19/23 08:38 Hydrocodone/Acetaminophen (*Crx) 5-325 Mg Tablet PO Q4H PRN Pain Rated 4-6 Enoxaparin Sodium 40 mg 04/19/23 09:00 04/23/23 09:41 Enoxaparin 40 Mg/0.4 Ml Syringe SUB-Q 40 mg DAILY [facility]ANK Administration Hydrochlorothiazide 25 mg 04/20/23 09:00 04/23/23 09:40 Hydrochlorothiazide 25 Mg Tablet PO 25 mg DAILY [facility]ANK Administration Piperacillin/Tazobactam/Dextrose 3.375 gm in 50 mls @ 100 mls/hr 04/16/23 21:00 04/23/23 09:40 Zosyn 3.375 Gm/Ns 50 Ml IVPB 100 mls/hr Q6H HANK Administration Latanoprost 1 drop 04/18/23 21:25 04/22/23 21:27 Latanoprost 0.005% Op Soln 2.5 Ml Btl EACH EYE 1 drop HS [facility]ANK Administration Levothyroxine Sodium 88 mcg 04/20/23 06:30 04/23/23 05:29 Levothyroxine Sodium 88 Mcg Tablet PO 88 mcg DAILY@0630 [facility] Administration Morphine Sulfate 2 mg 04/16/23 15:50 04/17/23 20:29 Morphine Sulfate (*Crx) 2 Mg/Ml Inj IV PUSH 2 mg Q2H PRN Administration Pain Rated 7-10 Ondansetron HCl 4 mg 04/16/23 16:14 Ondansetron Inj 4 Mg/2 Ml Vial IV PUSH Q6H PRN Nausea And Vomiting Timolol Maleate 1 drop 04/17/23 09:00 04/23/23 09:42 Timolol Maleate 0.5% Op Soln 5 Ml Bottle LEFT EYE 1 drop DAILY [facility] Administration Valsartan 80 mg 04/20/23 09:00 04/23/23 09:40 [place]
[2023-04-23 11:39] LABS: Glucose Point of Care 136 mg/dl (65-105)
[2023-04-23 13:53] VITALS: BP 148/72; PULSE 85; RESP 20; TEMP 36.9; O2SAT 95
--- NOTE | 2023-04-23 13:55 | PM.IMPN ---
Progress Note: A&P Assessment and Plan (1) Urinary retention: Code(s): R33.9 - Retention of urine, unspecified Status: Acute (2) Abscess of pelvis: Status: Acute Plan 82-year-old female with past medical history [id number] diabetes mellitus, hypertension, hypothyroidism, osteoporosis presenting with abdominal pain. Found to have diverticulitis of large intestine with abscess. -postop day 4 transgluteal percutaneous pelvic peritoneal abscess drainage with catheter placement. Scant growth of Bacteroides fragilis. Remaining on Zosyn. Surgery to manage. Does not appear septic/toxic otherwise. Repeat CT with contrast tomorrow in the morning to re-evaluate progress. -dehydration since resolved status post resuscitation. -right renal mass incidentally found on CT. 2.9 cm. The hyperdense cyst. Continue outpatient surveillance. -hypokalemia resolved status post replacement. -left adrenal mass 1.4 cm most likely benign. Continue outpatient surveillance. -hypertension controlled. -urinary retention status post urinary Ivy catheter placement. Remove this once the peritoneal abscess is improved/resolved more. FEN: Saline lock IV. Low residue diet GI prophylaxis: Not indicated DVT prophylaxis: Lovenox 40 mg subcutaneous daily Lines: Peripheral IV Code Status: Full code Dispo: Stable. Subjective Date/time seen: 04/23/23 13:55 Interval history: No acute overnight events. Patient complains of feeling the need to defecate fullness otherwise no pain. Denies fevers chills or diarrhea. Denies nausea vomiting. She is tolerating the low residue diet. Review of Systems Review of Systems: All systems reviewed & are unremarkable except as noted in HPI and below (Subjective) Exam Const: General: comfortable and no acute distress Other: A&O x3 Eyes: Pupils: Equal, round and reactive pupils present Neck: Neck: supple Resp: Effort & Inspection: normal respiratory effort Auscultation: clear to auscultation bilaterally Cardio: Rate: regular rate Rhythm: regular rhythm GI: GI Palp: Yes Soft to palpation and No Tenderness to palpation present (GI) : Bimanual exam- vagina & uterus: bladder normal to palpation Other: Scant amount of drainage in collection bag Extrem: General: no edema Objective Data Vital Signs Vital Signs: Vital Signs - 24 hr 04/22/23 14:24 04/22/23 19:30 04/23/23 04:25 Temperature 97.1 F L 98 F 96.5 F L Pulse Rate 65 92 65 Respiratory Rate 18 20 20 Blood Pressure 147/64 H 164/64 H 144/68 H Pulse Oximetry 96 97 98 Oxygen Delivery 04/23/23 09:46 04/23/23 09:40 04/23/23 13:53 Temperature 98.5 F Pulse Rate 81 85 Respiratory Rate 16 20 Blood Pressure 127/62 148/72 H Pulse Oximetry 94 95 Oxygen Delivery Room Air Intake/Output Intake/Output: Intake & Output 04/20/23 04/21/23 04/22/23 04/23/23 23:59 23:59 23:59 23:59 Intake Total 1870 1160 1116 Output Total 2530 1460 555 Balance -660 -300 561 Meds/Results Medications: Active Medications Generic Name Dose Route Start Last Admin Trade Name Freq PRN Reason Stop Dose Admin Acetaminophen 1,000 mg 04/19/23 08:38 04/22/23 21:31 Acetaminophen 500 Mg Tablet PO 1,000 mg Q6H PRN Administration Mild Pain (1-3) or Fever Hydrocodone Bitart/Acetaminophen 1 tab 04/19/23 08:38 Hydrocodone/Acetaminophen (*Crx) 5-325 Mg Tablet PO Q4H PRN Pain Rated 4-6 Enoxaparin Sodium 40 mg 04/19/23 09:00 04/23/23 09:41 Enoxaparin 40 Mg/0.4 Ml Syringe SUB-Q 40 mg DAILY HANK Administration Hydrochlorothiazide 25 mg 04/20/23 09:00 04/23/23 09:40 Hydrochlorothiazide 25 Mg Tablet PO 25 mg DAILY HANK Administration Piperacillin/Tazobactam/Dextrose 3.375 gm in 50 mls @ 100 mls/hr 04/16/23 21:00 04/23/23 09:40 Zosyn 3.375 Gm/Ns 50 Ml IVPB 100 mls/hr Q6H HANK Administration Latanoprost 1 drop 04/18/23 21:25 04/22/23 21:
[2023-04-23 16:34] LABS: Glucose Point of Care 138 mg/dl (65-105)
[2023-04-23 20:22] VITALS: BP 143/70; PULSE 72; RESP 20; TEMP 37; O2SAT 97
[2023-04-23] MEDS: MELATONIN 5 MG TABLET PO (20:40)
[2023-04-23] MEDS: LATANOPROST 0.005% OP SOLN 2.5 ML BTL 1 DROP EACH EYE (20:40)
[2023-04-23] MEDS: ACETAMINOPHEN 500 MG TABLET 1000 MG PO (20:41)
[2023-04-23 20:52] LABS: Glucose Point of Care 133 mg/dl (65-105)
[2023-04-24] MEDS: PIPERACILLN/TAZ 3.375GM/NS50ML 3.375 GM/50 ML BAG IVPB ×4 (03:17→20:39)
[2023-04-24 04:30] VITALS: BP 152/62; PULSE 60; RESP 20; TEMP 36.6; O2SAT 96
[2023-04-24] MEDS: LEVOTHYROXINE SODIUM 88 MCG TABLET PO (06:00)
[2023-04-24 07:20] LABS: Hematocrit 35.2 % (37.0-47.0); Mean Corpuscular HGB Conc 31.3 g/dl (32-36); Mean Corpuscular Hemoglobin 28.9 pg (26-34); Mean Corpuscular Volume 92.4 fl (80-100); Mean Platelet Volume 9.2 fl (7.4-10.4); Platelet Count Result 362 k/mm3 (150-375); Red Blood Count 3.81 M/mm3 (4.2-5.4); Red Cell Distribution Width 13.9 % (11.5-14.5)
[2023-04-24 07:29] LABS: Anion Gap 3 mmol/L (8-16); Blood Urea Nitrogen 11 mg/dL (7-17); Calcium 9.2 mg/dL (8.4-10.2); Carbon Dioxide 29 mmol/L (22-30); Chloride 103 mmol/L (98-107); Estimated CRCL calculation 51 ml/min; Estimated Glomerular Filt Rate > 60; Glucose 101 mg/dL (65-110); Potassium 3.5 mmol/L (3.4-5.0); Sodium 135 mmol/L (137-145)
[2023-04-24 08:02] LABS: Glucose Point of Care 110 mg/dl (65-105)
[2023-04-24] MEDS: VALSARTAN 80 MG TABLET PO (09:16)
[2023-04-24] MEDS: hydroCHLOROthiazide 25 MG TABLET PO (09:16)
[2023-04-24] MEDS: TIMOLOL MALEATE 0.5% OP SOLN 5 ML BOTTLE 1 DROP LEFT EYE (09:17)
[2023-04-24 09:20] VITALS: BP 132/60; PULSE 76; RESP 14; O2SAT 97
[2023-04-24] MEDS: ENOXAPARIN 40 MG/0.4 ML SYRINGE SUB-Q (09:20)
--- NOTE | 2023-04-24 11:08 | PCNWS ---
Weekly nutritional screen. Patient is tolerating current low fiber diet with adequate intake at 100% all meals. No weight loss reported. No nutritional needs at this time.
[2023-04-24 12:00] LABS: Glucose Point of Care 140 mg/dl (65-105)
[2023-04-24 14:00] VITALS: BP 141/73; PULSE 60; RESP 18; TEMP 36.8; O2SAT 99
--- NOTE | 2023-04-24 15:41 | PM.PNGS ---
Progress Note: A&P Assessment and Plan (1) Abscess of pelvis: Status: Acute Assessment and Plan: Pelvic abscess s/p percutaneous drainage on 04/16. CT scan of the abdomen and pelvis today showed interval decrease in size of the abscess but it is still measuring 6.6 x 3 x 1.6 cm with the drain in the expected position. No rectal contrast was seen going into the abscess. Will start flushing the perc drain, and I will review the CT scan with the Radiologist to see if there would be any benefit in upsizing the drain. Continue IV antibiotics. (2) Sigmoid diverticulitis: Code(s): K57.32 - Diverticulitis of large intestine without perforation or abscess without bleeding Status: Acute Assessment and Plan: Continue IV antibiotics. Continue low-fiber diet. Plan I have discussed the patient's case and plan of care with Dr. Hameed. Subjective Subjective Date/Time Seen: 04/24/23 15:41 Patient reports: no new complaints, tolerating a regular diet, flatus, bowel movement and afebrile Interval history: Patient doing well. No acute events overnight. No output from perc drain in past 24 hours. Exam Const: General: comfortable and no acute distress GI: Inspection: non-distended GI Palp: Yes Soft to palpation, No Tenderness to palpation present (GI) and No Guarding due to palpation present (GI) Auscultation: normal bowel sounds Other: right transgluteal percutaneous drain in place with scant brown drainage in the bag Objective Data Vital Signs Vital Signs: Vital Signs - 24 hr 04/23/23 20:22 04/24/23 04:30 04/24/23 09:20 Temperature 98.6 F 97.8 F Pulse Rate 72 60 Respiratory Rate 20 20 Blood Pressure 143/70 H 152/62 H Pulse Oximetry 97 96 Oxygen Delivery Room Air 04/24/23 09:20 04/24/23 14:00 Temperature 98.2 F Pulse Rate 76 60 Respiratory Rate 14 18 Blood Pressure 132/60 141/73 H Pulse Oximetry 97 99 Oxygen Delivery Intake/Output Intake/Output: Intake & Output 04/21/23 04/22/23 04/23/23 04/24/23 23:59 23:59 23:59 23:59 Intake Total 1870 1160 1738 755 Output Total 2530 5202 213 4243 Balance -660 -300 903 -245 Meds/Results Medications: Active Medications Generic Name Dose Route Start Last Admin Trade Name Freq PRN Reason Stop Dose Admin Acetaminophen 1,000 mg 04/19/23 08:38 04/23/23 20:41 Acetaminophen 500 Mg Tablet PO 1,000 mg Q6H PRN Administration Mild Pain (1-3) or Fever Hydrocodone Bitart/Acetaminophen 1 tab 04/19/23 08:38 Hydrocodone/Acetaminophen (*Crx) 5-325 Mg Tablet PO Q4H PRN Pain Rated 4-6 Enoxaparin Sodium 40 mg 04/19/23 09:00 04/24/23 09:20 Enoxaparin 40 Mg/0.4 Ml Syringe SUB-Q 40 mg DAILY HANK Administration Hydrochlorothiazide 25 mg 04/20/23 09:00 04/24/23 09:16 Hydrochlorothiazide 25 Mg Tablet PO 25 mg DAILY [facility]ANK Administration Piperacillin/Tazobactam/Dextrose 3.375 gm in 50 mls @ 100 mls/hr 04/16/23 21:00 04/24/23 10:30 Zosyn 3.375 Gm/Ns 50 Ml IVPB Infused Q6H [facility]ANK Infusion Latanoprost 1 drop 04/18/23 21:25 04/23/23 20:40 Latanoprost 0.005% Op Soln 2.5 Ml Btl EACH EYE 1 drop HS [facility] Administration Levothyroxine Sodium 88 mcg 04/20/23 06:30 04/24/23 06:00 Levothyroxine Sodium 88 Mcg Tablet PO 88 mcg DAILY@0630 [facility] Administration Melatonin 5 mg 04/23/23 21:00 04/23/23 20:40 Melatonin 5 Mg Tablet PO 5 mg HS HANK Administration Morphine Sulfate 2 mg 04/16/23 15:50 04/17/23 20:29 Morphine Sulfate (*Crx) 2 Mg/Ml Inj IV PUSH 2 mg Q2H PRN Administration Pain Rated 7-10 Ondansetron HCl 4 mg 04/16/23 16:14 Ondansetron Inj 4 Mg/2 Ml Vial IV PUSH Q6H PRN Nausea And Vomiting Timolol Maleate 1 drop 04/17/23 09:00 04/24/23 09:17 Timolol Maleate 0.5% Op Soln 5 Ml Bottle LEFT EYE 1 drop DAILY [facility] Administration Valsartan 80 mg 04/20/23 09:00 04/24/23 09:16 Valsartan 80 Mg Tablet PO 80 mg DAILY [facility] Adm
[2023-04-24 16:41] LABS: Glucose Point of Care 111 mg/dl (65-105)
[2023-04-24] MEDS: POTASSIUM CHLORIDE 20 MEQ ER TABLET 40 MEQ PO (18:17)
[2023-04-24 19:55] VITALS: BP 137/65; PULSE 74; RESP 20; TEMP 37.1; O2SAT 97
[2023-04-24 20:21] LABS: Glucose Point of Care 167 mg/dl (65-105)
[2023-04-24] MEDS: MELATONIN 5 MG TABLET PO (20:38)
[2023-04-24] MEDS: LATANOPROST 0.005% OP SOLN 2.5 ML BTL 1 DROP EACH EYE (20:39)
[2023-04-24] MEDS: ACETAMINOPHEN 500 MG TABLET 1000 MG PO (20:40)
[2023-04-25] VITALS (12 sets, daily range): BP systolic 124–168; BP diastolic 47–91; PULSE 67–85; RESP 14–19; TEMP 36.2–36.6; O2SAT 96–99
[2023-04-25] MEDS: PIPERACILLN/TAZ 3.375GM/NS50ML 3.375 GM/50 ML BAG IVPB ×4 (02:40→20:36)
[2023-04-25] MEDS: LEVOTHYROXINE SODIUM 88 MCG TABLET PO (05:32)
[2023-04-25 07:42] LABS: Glucose Point of Care 112 mg/dl (65-105)
--- NOTE | 2023-04-25 09:14 | WPDPN ---
Progress Note: A&P Assessment and Plan (1) Abscess of pelvis: Status: Acute Assessment and Plan: Discussed with radiologist up sizing the pelvic drain. That is going to be done today in CT scan later this morning or this afternoon. Hopefully placement larger drain will resolve the abscess. No evidence of extravasation of rectal contrast into the abscess cavity and so chance of significant colocutaneous fistula is low. (2) Sigmoid diverticulitis: Code(s): K57.32 - Diverticulitis of large intestine without perforation or abscess without bleeding Status: Acute Assessment and Plan: Continue IV antibiotics. Hopefully can discharge from the hospital with abscess resolves and can remove the pelvic drain. The plan on a course of another 10 to 14 days of oral antibiotics at home if non operative management is successful. Abscess is not resolved for she clinically worsens then laparotomy with sigmoid resection and end colostomy will likely need to be done. Subjective Date/time seen: 04/25/23 09:14 Interval history: Patient without acute changes today. So describes a mild pressure sensation or pelvis. No nausea or vomiting. Had CT scan abdomen pelvis yesterday with rectal contrast showing decreased in size the pelvic abscess but is not resolved. Current drain is in good position the abscess cavity. There was no extravasation of contrast into the abscess cavity from the rectal contrast. White blood cell count remains normal. Afebrile and no tachycardia. Exam GI: Other: Abdomen is soft and nondistended. Minimal tenderness to palpation suprapubic region in the abdomen. No peritoneal signs. Right transgluteal drain with decreasing purulent output. No fecal material noted. Objective Data Vital Signs Vital Signs: Vital Signs - 24 hr 04/24/23 09:20 04/24/23 09:20 04/24/23 14:00 Temperature 36.8 C Pulse Rate 76 60 Respiratory Rate 14 18 Blood Pressure 132/60 141/73 H Pulse Oximetry 97 99 Oxygen Delivery Room Air 04/24/23 19:55 04/25/23 04:50 Temperature 37.1 C 36.6 C Pulse Rate 74 85 Respiratory Rate 20 18 Blood Pressure 137/65 142/72 H Pulse Oximetry 97 97 Oxygen Delivery Intake/Output Intake/Output: Intake & Output 04/22/23 04/23/23 04/24/23 04/25/23 23:59 23:59 23:59 23:59 Intake Total 1160 1738 1655 300 Output Total 6493 923 6706 Balance -300 903 645 300 Meds/Results Medications: Active Medications Generic Name Dose Route Start Last Admin Trade Name Freq PRN Reason Stop Dose Admin Acetaminophen 1,000 mg 04/19/23 08:38 04/24/23 20:40 Acetaminophen 500 Mg Tablet PO 1,000 mg Q6H PRN Administration Mild Pain (1-3) or Fever Hydrocodone Bitart/Acetaminophen 1 tab 04/19/23 08:38 Hydrocodone/Acetaminophen (*Crx) 5-325 Mg Tablet PO Q4H PRN Pain Rated 4-6 Enoxaparin Sodium 40 mg 04/19/23 09:00 04/24/23 09:20 Enoxaparin 40 Mg/0.4 Ml Syringe SUB-Q 40 mg DAILY HANK Administration Hydrochlorothiazide 25 mg 04/20/23 09:00 04/24/23 09:16 Hydrochlorothiazide 25 Mg Tablet PO 25 mg DAILY HANK Administration Piperacillin/Tazobactam/Dextrose 3.375 gm in 50 mls @ 100 mls/hr 04/16/23 21:00 04/25/23 03:10 Zosyn 3.375 Gm/Ns 50 Ml IVPB Infused Q6H HANK Infusion Latanoprost 1 drop 04/18/23 21:25 04/24/23 20:39 Latanoprost 0.005% Op Soln 2.5 Ml Btl EACH EYE 1 drop HS HANK Administration Levothyroxine Sodium 88 mcg 04/20/23 06:30 04/25/23 05:32 Levothyroxine Sodium 88 Mcg Tablet PO 88 mcg DAILY@0630 [facility] Administration Melatonin 5 mg 04/23/23 21:00 04/24/23 20:38 Melatonin 5 Mg Tablet PO 5 mg HS HANK Administration Morphine Sulfate 2 mg 04/16/23 15:50 04/17/23 20:29 Morphine Sulfate (*Crx) 2 Mg/Ml Inj IV PUSH 2 mg Q2H PRN Administration Pain Rated 7-10 Ondansetron HCl 4 mg 04/16/23 16:14 Ondansetron Inj 4 Mg/2 Ml Vial IV PUSH Q6H PRN Nausea And
[2023-04-25] MEDS: hydroCHLOROthiazide 25 MG TABLET PO (10:02)
[2023-04-25] MEDS: VALSARTAN 80 MG TABLET PO (10:02)
[2023-04-25] MEDS: TIMOLOL MALEATE 0.5% OP SOLN 5 ML BOTTLE 1 DROP LEFT EYE (10:05)
[2023-04-25 11:26] LABS: Glucose Point of Care 100 mg/dl (65-105)
--- NOTE | 2023-04-25 13:29 | PM.IMPN ---
Progress Note: A&P Assessment and Plan (1) Urinary retention: Code(s): R33.9 - Retention of urine, unspecified Status: Acute (2) Abscess of pelvis: Status: Acute Assessment and Plan: Per General surgery: Had CT scan abdomen pelvis yesterday with rectal contrast showing decreased in size the pelvic abscess but is not resolved.? Current drain is in good position the abscess cavity.? There was no extravasation of contrast into the abscess cavity from the rectal contrast.? Plan 82-year-old female with past medical history pxa-[id number] diabetes mellitus, hypertension, hypothyroidism, osteoporosis presenting with abdominal pain. Found to have diverticulitis of large intestine with abscess. -postop day 4 transgluteal percutaneous pelvic peritoneal abscess drainage with catheter placement. Scant growth of Bacteroides fragilis. Remaining on Zosyn. Surgery to manage. Does not appear septic/toxic otherwise. Repeat CT with contrast: rectal contrast showing decreased in size the pelvic abscess but is not resolved.? Current drain is in good position the abscess cavity.? There was no extravasation of contrast into the abscess cavity from the rectal contrast.? 04/25/23: will size up drain, continue Abx; Will perform laparotomy if conservative management fails -dehydration since resolved status post resuscitation. -right renal mass incidentally found on CT. 2.9 cm. The hyperdense cyst. Continue outpatient surveillance. -hypokalemia resolved status post replacement. -left adrenal mass 1.4 cm most likely benign. Continue outpatient surveillance. -hypertension controlled. -urinary retention status post urinary Ivy catheter placement. Remove this once the peritoneal abscess is improved/resolved more. FEN: Saline lock IV. Low residue diet GI prophylaxis: Not indicated DVT prophylaxis: Lovenox 40 mg subcutaneous daily Lines: Peripheral IV Code Status: Full code Dispo: Stable. Subjective Date/time seen: 04/25/23 13:29 Interval history: Seen and examined; denies pain but attests to lower abdomen pressure. No chills or malaise. She is being managed conservatively for a pelvic abscess with a drain in-situ. Review of Systems Review of Systems: Twelve systems were reviewed and are negative except for as per HPI. All systems reviewed & are unremarkable except as noted in HPI and below (Subjective) Eyes: Eyes: Reports no additional eye complaints ENT: Denies dysphagia Cardiovascular: Cardiovascular: Reports no additional cardiovascular complaints Respiratory: Respiratory: Reports no additional respiratory complaints Gastrointestinal: Gastrointestinal: Reports diarrhea, Denies nausea and Denies vomiting Genitourinary: Genitourinary: Denies urinary incontinence Musculoskeletal: Musculoskeletal: Reports no additional musculoskeletal complaints Integumentary/Breasts: Skin/Breast: Reports system reviewed and no additional complaints, except as docu Neurologic: Reports system reviewed and no additional complaints, except as documented, Denies Abnormal speech present, Denies abnormal gait and Denies confusion Psychiatric: Psychiatric: Reports no additional psychiatric complaints Exam Narrative: General: A well-developed, nontoxic-appearing female in no acute distress HEENT: PERRL, EOMI. Sclera anicteric. MMM, Oropharynx clear. Neck: Supple. FROM Respiratory: Lungs are clear to auscultation bilaterally. Cardiovascular: Regular rate and rhythm with S1-S2. Gastrointestinal: Abdomen is soft and nondistended with positive bowel sounds. minimal tenderness- left lower suprapubic, No guarding or rebound tenderness. right gluteal drain site without concern Skin: Warm and dry. No rash or lesions on limited exam. Extremities: No cyanosis, clubbing. Radial and pedal pulses intact. Trace edema BLE Neurological: Alert. Cranial nerves 2-12 are grossly intact. No gross focal deficits to c
--- NOTE | 2023-04-25 13:42 | WPDMODSED ---
Moderate Sedation Note-Pt Data Patient Data Diagnosis: Perisigmoid abscess. Present Complaint: Perisigmoid abscess. Procedure to be performed/Plan: CT-guided perisigmoid abscess drain exchange. Allergies Allergy/AdvReac Type Severity Reaction Status Date / Time latex Allergy Unknown Verified 04/16/23 17:07 Home Medications Medication Instructions Recorded Confirmed Type alendronate 70 mg tablet 70 mg PO WEEKLY 04/16/23 04/16/23 History bimatoprost 0.01 % eye drops 1 drp EACH EYE DAILY 04/16/23 04/16/23 History (Mar) hydrochlorothiazide 25 mg tablet 25 mg PO DAILY 04/16/23 04/16/23 History levothyroxine 88 mcg tablet 88 mcg PO DAILY 04/16/23 04/16/23 History semaglutide 0.25 mg or 0.5 mg (2 0.5 mg subcut WEEKLY 04/16/23 04/16/23 History mg/3 mL) subcutaneous pen injector (Ozempic) timolol maleate 0.5 % eye drops 1 drp LEFT EYE DAILY 04/16/23 04/16/23 History valsartan 80 mg tablet 80 mg PO DAILY 04/16/23 04/16/23 History Current Medications: Active Medications Acetaminophen (Acetaminophen 500 Mg Tablet) 1,000 mg PO Q6H PRN PRN Reason: Mild Pain (1-3) or Fever Last Admin: 04/24/23 20:40 Dose: 1,000 mg Hydrocodone Bitart/Acetaminophen (Hydrocodone/Acetaminophen (*Crx) 5-325 Mg Tablet) 1 tab PO Q4H PRN PRN Reason: Pain Rated 4-6 Enoxaparin Sodium (Enoxaparin 40 Mg/0.4 Ml Syringe) 40 mg SUB-Q DAILY [facility] Last Admin: 04/25/23 09:23 Dose: Not Given Hydrochlorothiazide (Hydrochlorothiazide 25 Mg Tablet) 25 mg PO DAILY [facility] Last Admin: 04/25/23 10:02 Dose: 25 mg Piperacillin/Tazobactam/Dextrose (Zosyn 3.375 Gm/Ns 50 Ml) 3.375 gm in 50 mls @ 100 mls/hr IVPB Q6H [facility] Last Infusion: 04/25/23 10:33 Dose: Infused Latanoprost (Latanoprost 0.005% Op Soln 2.5 Ml Btl) 1 drop EACH EYE [facility] Last Admin: 04/24/23 20:39 Dose: 1 drop Levothyroxine Sodium (Levothyroxine Sodium 88 Mcg Tablet) 88 mcg PO DAILY@0630 [facility] Last Admin: 04/25/23 05:32 Dose: 88 mcg Melatonin (Melatonin 5 Mg Tablet) 5 mg PO HS [facility] Last Admin: 04/24/23 20:38 Dose: 5 mg Morphine Sulfate (Morphine Sulfate (*Crx) 2 Mg/Ml Inj) 2 mg IV PUSH Q2H PRN PRN Reason: Pain Rated 7-10 Last Admin: 04/17/23 20:29 Dose: 2 mg Ondansetron HCl (Ondansetron Inj 4 Mg/2 Ml Vial) 4 mg IV PUSH Q6H PRN PRN Reason: Nausea And Vomiting Timolol Maleate (Timolol Maleate 0.5% Op Soln 5 Ml Bottle) 1 drop LEFT EYE DAILY [facility] Last Admin: 04/25/23 10:05 Dose: 1 drop Valsartan (Valsartan 80 Mg Tablet) 80 mg PO DAILY [facility] Last Admin: 04/25/23 10:02 Dose: 80 mg Sedation/Anesthesia: No previous sedation/anesthesia problems (including family history). [facility] Past Medical History Medical History (Updated 04/19/23 @ 08:40 by Manny Hameed MD) Glaucoma Hypertension Hypothyroidism Osteoarthritis Osteoporosis Type 2 diabetes mellitus Surgical History Surgical History (Updated 04/16/23 @ 16:50 by Rosanna Jennings PA-C) History of bilateral knee arthroplasty History of colonoscopy History of laparoscopic cholecystectomy Family History Family History Other No pertinent family history Social History Social History (Updated 04/16/23 @ 22:43 by Rosanna Jennings PA-C) Social History: Surrogate medical decision maker: Pierre Finley, spouse. Code status: Full code. Smoking status: Never smoker Alcohol intake: never Substance use: never Do You Feel Safe in your Home?: Yes Lack of Transportation: No Lack of Food: Never True Current Housing: I Have Housing Concerned About Future Housing: No Difficulty Paying Gas/Electric Bills: No Difficulty Paying for Meds: No Currently Unemployed: No Education: Master's Degree or Higher Difficulty w/ Childcare or Family Care: No Additional living arrangements comments: Originally from [place]. Lived in [facility] for many years before moving to [place] and more recently moving [facility]
[2023-04-25 16:24] LABS: Glucose Point of Care 132 mg/dl (65-105)
[2023-04-25] MEDS: HYDROcodone/acetaminophen (*CRX) 5-325 MG TABLET 1 TAB PO (20:35)
[2023-04-25] MEDS: MELATONIN 5 MG TABLET PO (20:36)
[2023-04-25] MEDS: LATANOPROST 0.005% OP SOLN 2.5 ML BTL 1 DROP EACH EYE (20:36)
[2023-04-25 20:44] LABS: Glucose Point of Care 105 mg/dl (65-105)
[2023-04-26] MEDS: PIPERACILLN/TAZ 3.375GM/NS50ML 3.375 GM/50 ML BAG IVPB ×4 (04:04→20:15)
[2023-04-26 05:49] VITALS: BP 138/60; PULSE 70; RESP 16; TEMP 36.3; O2SAT 95
[2023-04-26] MEDS: LEVOTHYROXINE SODIUM 88 MCG TABLET PO (06:16)
[2023-04-26 06:57] LABS: Basophils Absolute Auto 0.1 K/mm3 (0.0-0.1); Basophils Percent Auto 0.8 % (0.2-1.2); Eosinophils Absolute Auto 0.1 K/mm3 (0-0.3); Eosinophils Percent Auto 2.3 % (0-4.4); Hematocrit 35.8 % (37.0-47.0); Immature Granulocyte Absolute 0.07 K/mm3 (0.00-0.031); Immature Granulocyte Percent A 1.1 % (0-0.5); Lymphocytes Percent Auto 26.3 % (18.3-44.2); Mean Corpuscular HGB Conc 30.7 g/dl (32-36); Mean Corpuscular Hemoglobin 28.6 pg (26-34); Mean Platelet Volume 9.2 fl (7.4-10.4); Monocytes Absolute Auto 0.4 K/mm3 (0.1-0.6); Monocytes Percent Auto 7.2 % (2.6-8.5); Neutrophils Absolute Auto 3.8 K/mm3 (1.3-6.7); Neutrophils Percent Auto 62.3 % (45.5-73.1); Platelet Count Result 346 k/mm3 (150-375); Red Blood Count 3.85 M/mm3 (4.2-5.4); Red Cell Distribution Width 14.1 % (11.5-14.5); White Blood Count 6.1 K/mm3 (4.5-10.0)
[2023-04-26 07:06] LABS: Alanine Aminotransferase 19 U/L (6-35); Albumin Level 3.4 g/dL (3.5-5.1); Alkaline Phosphatase 72 U/L (38-126); Anion Gap 2 mmol/L (8-16); Aspartate Amino Transferase 27 U/L (14-36); Bilirubin,Total 0.6 mg/dL (0.2-1.3); Blood Urea Nitrogen 10 mg/dL (7-17); Calcium 9.5 mg/dL (8.4-10.2); Carbon Dioxide 30 mmol/L (22-30); Chloride 101 mmol/L (98-107); Estimated CRCL calculation 58 ml/min; Estimated Glomerular Filt Rate > 60; Glucose 95 mg/dL (65-110); Potassium 3.2 mmol/L (3.4-5.0); Sodium 133 mmol/L (137-145)
[2023-04-26 07:22] LABS: Glucose Point of Care 99 mg/dl (65-105)
[2023-04-26] MEDS: TIMOLOL MALEATE 0.5% OP SOLN 5 ML BOTTLE 1 DROP LEFT EYE (07:37)
[2023-04-26] MEDS: ENOXAPARIN 40 MG/0.4 ML SYRINGE SUB-Q (07:37)
[2023-04-26] MEDS: VALSARTAN 80 MG TABLET PO (07:38)
[2023-04-26] MEDS: hydroCHLOROthiazide 25 MG TABLET PO (07:38)
--- NOTE | 2023-04-26 11:15 | PM.PNGS ---
Progress Note: A&P Assessment and Plan (1) Diverticulitis of large intestine with abscess: Code(s): K57.20 - Diverticulitis of large intestine with perforation and abscess without bleeding Status: Acute Assessment and Plan: exam benign, cont drain and abx, cont low fiber diet, CDiff pending, plan for repeat CT on Friday Subjective Subjective Date/Time Seen: 04/26/23 11:15 Interval history: no acute issues, vinny low fiber diet, soft BM this am Review of Systems Review of Systems: All systems reviewed & are unremarkable except as noted in HPI and below Exam Const: General: cooperative, comfortable and no acute distress Resp: Auscultation: clear to auscultation bilaterally Cardio: Rate: regular rate Rhythm: regular rhythm GI: Inspection: normal to inspection and non-distended GI Palp: Yes abdominal tenderness, Yes Soft to palpation, Yes Tenderness to palpation present (GI), No Guarding due to palpation present (GI) and No Rigid due to palpation Other: pelvic drain c small amount of dark s/s fluid Objective Data Vital Signs Vital Signs: Vital Signs - 24 hr 04/25/23 13:55 04/25/23 14:00 04/25/23 14:05 Temperature 36.2 C L Pulse Rate 68 71 71 Respiratory Rate 16 16 18 Blood Pressure 137/67 166/61 H 168/91 H Pulse Oximetry 97 99 99 Oxygen Delivery Room Air Room Air Oxygen Flow Rate 04/25/23 14:40 04/25/23 14:10 04/25/23 14:15 Temperature Pulse Rate 69 72 67 Respiratory Rate 17 19 18 Blood Pressure 136/58 L 157/64 H 124/47 L Pulse Oximetry 96 99 97 Oxygen Delivery Room Air Nasal Cannula Nasal Cannula Oxygen Flow Rate 2 4 04/25/23 14:20 04/25/23 14:25 04/25/23 14:30 Temperature Pulse Rate 70 71 69 Respiratory Rate 17 18 18 Blood Pressure 140/52 L 151/64 H 156/55 H Pulse Oximetry 97 97 97 Oxygen Delivery Nasal Cannula Nasal Cannula Nasal Cannula Oxygen Flow Rate 4 4 4 04/25/23 14:35 04/25/23 14:40 04/25/23 21:09 Temperature 36.6 C Pulse Rate 69 69 76 Respiratory Rate 17 17 14 Blood Pressure 145/55 H 136/58 L 159/63 H Pulse Oximetry 97 96 97 Oxygen Delivery Room Air Room Air Oxygen Flow Rate 04/25/23 20:00 04/26/23 05:49 04/26/23 08:00 Temperature 36.3 C L Pulse Rate 70 Respiratory Rate 16 Blood Pressure 138/60 Pulse Oximetry 95 Oxygen Delivery Room Air Room Air Oxygen Flow Rate Intake/Output Intake/Output: Intake & Output 04/23/23 04/24/23 04/25/23 04/26/23 23:59 23:59 23:59 23:59 Intake Total 1738 1655 450 560 Output Total 835 1010 0 Balance 903 645 450 560 Meds/Results Medications: Active Medications Generic Name Dose Route Start Last Admin Trade Name Freq PRN Reason Stop Dose Admin Acetaminophen 1,000 mg 04/19/23 08:38 04/24/23 20:40 Acetaminophen 500 Mg Tablet PO 1,000 mg Q6H PRN Administration Mild Pain (1-3) or Fever Hydrocodone Bitart/Acetaminophen 1 tab 04/19/23 08:38 04/25/23 20:35 Hydrocodone/Acetaminophen (*Crx) 5-325 Mg Tablet PO 1 tab Q4H PRN Administration Pain Rated 4-6 Enoxaparin Sodium 40 mg 04/19/23 09:00 04/26/23 07:37 Enoxaparin 40 Mg/0.4 Ml Syringe SUB-Q 40 mg DAILY HANK Administration Hydrochlorothiazide 25 mg 04/20/23 09:00 04/26/23 07:38 Hydrochlorothiazide 25 Mg Tablet PO 25 mg DAILY HANK Administration Piperacillin/Tazobactam/Dextrose 3.375 gm in 50 mls @ 100 mls/hr 04/16/23 21:00 04/26/23 08:08 Zosyn 3.375 Gm/Ns 50 Ml IVPB Infused Q6H HANK Infusion Latanoprost 1 drop 04/18/23 21:25 04/25/23 20:36 Latanoprost 0.005% Op Soln 2.5 Ml Btl EACH EYE 1 drop HS HANK Administration Levothyroxine Sodium 88 mcg 04/20/23 06:30 04/26/23 06:16 Levothyroxine Sodium 88 Mcg Tablet PO 88 mcg DAILY@0630 HANK Administration Melatonin 5 mg 04/23/23 21:00 04/25/23 20:36 Melatonin 5 Mg Tablet PO 5 mg HS HANK Administration Miscellaneous Information 0 each 04/25/23 21:05 04/26/23 04:38 Fani Salinas
[2023-04-26 11:32] LABS: Toxigenic C. Diff NEGATIVE (NEGATIVE)
[2023-04-26 11:46] LABS: Glucose Point of Care 195 mg/dl (65-105)
--- NOTE | 2023-04-26 13:43 | PM.IMPN ---
Progress Note: A&P Assessment and Plan (1) Urinary retention: Code(s): R33.9 - Retention of urine, unspecified Status: Acute Assessment and Plan: Ivy in-situ (2) Abscess of pelvis: Status: Acute Assessment and Plan: Per General surgery: Had CT scan abdomen pelvis yesterday with rectal contrast showing decreased in size the pelvic abscess but is not resolved.? Current drain is in good position the abscess cavity.? There was no extravasation of contrast into the abscess cavity from the rectal contrast.? Plan 82-year-old female with past medical history [id number] diabetes mellitus, hypertension, hypothyroidism, osteoporosis presenting with abdominal pain. Found to have diverticulitis of large intestine with abscess. -postop day 4 transgluteal percutaneous pelvic peritoneal abscess drainage with catheter placement. Scant growth of Bacteroides fragilis. Remaining on Zosyn. Surgery to manage. Does not appear septic/toxic otherwise. Repeat CT with contrast: rectal contrast showing decreased in size the pelvic abscess but is not resolved.? Current drain is in good position the abscess cavity.? There was no extravasation of contrast into the abscess cavity from the rectal contrast.? 04/25/23: will size up drain, continue Abx; Will perform laparotomy if conservative management fails 04/26/23: exam benign, cont drain and abx, cont low fiber diet, CDiff pending, plan for repeat CT on Friday -dehydration since resolved status post resuscitation. -right renal mass incidentally found on CT. 2.9 cm. The hyperdense cyst. Continue outpatient surveillance. -hypokalemia resolved status post replacement. -left adrenal mass 1.4 cm most likely benign. Continue outpatient surveillance. -hypertension controlled. -urinary retention status post urinary Ivy catheter placement. Remove this once the peritoneal abscess is improved/resolved more. FEN: Saline lock IV. Low residue diet GI prophylaxis: Not indicated DVT prophylaxis: Lovenox 40 mg subcutaneous daily Lines: Peripheral IV Code Status: Full code Dispo: Stable. Time Spent With Patient Time with patient: 25 - 35 minutes Subjective Date/time seen: 04/26/23 13:43 Interval history: Seen and examined; denies pain but attests to lower abdomen pressure. No chills or malaise. She is being managed conservatively for a pelvic abscess with a drain in-situ. Review of Systems Review of Systems: Twelve systems were reviewed and are negative except for as per HPI. All systems reviewed & are unremarkable except as noted in HPI and below (Subjective) Eyes: Eyes: Reports no additional eye complaints ENT: Denies dysphagia Cardiovascular: Cardiovascular: Reports no additional cardiovascular complaints Respiratory: Respiratory: Reports no additional respiratory complaints Gastrointestinal: Gastrointestinal: Denies dysphagia, Reports diarrhea, Denies nausea and Denies vomiting Genitourinary: Genitourinary: Denies urinary incontinence Musculoskeletal: Musculoskeletal: Reports no additional musculoskeletal complaints and Denies abnormal gait Integumentary/Breasts: Skin/Breast: Reports system reviewed and no additional complaints, except as docu Neurologic: Reports system reviewed and no additional complaints, except as documented, Denies Abnormal speech present, Denies abnormal gait and Denies confusion Psychiatric: Psychiatric: Reports no additional psychiatric complaints and Denies confusion Exam Narrative: General: A well-developed, nontoxic-appearing female in no acute distress HEENT: PERRL, EOMI. Sclera anicteric. MMM, Oropharynx clear. Neck: Supple. FROM Respiratory: Lungs are clear to auscultation bilaterally. Cardiovascular: Regular rate and rhythm with S1-S2. Gastrointestinal: Abdomen is soft and nondistended with positive bowel sounds. minimal tenderness- left lower suprapubic, No guarding or rebound tenderness. ri
[2023-04-26 14:00] VITALS: BP 113/55; PULSE 88; RESP 16; TEMP 36.6; O2SAT 99
[2023-04-26 17:06] LABS: Glucose Point of Care 158 mg/dl (65-105)
[2023-04-26 20:06] VITALS: BP 135/57; PULSE 81; RESP 16; TEMP 36.6; O2SAT 94
[2023-04-26] MEDS: HYDROcodone/acetaminophen (*CRX) 5-325 MG TABLET 1 TAB PO (20:14)
[2023-04-26] MEDS: MELATONIN 5 MG TABLET PO (20:14)
[2023-04-26] MEDS: LATANOPROST 0.005% OP SOLN 2.5 ML BTL 1 DROP EACH EYE (20:15)
[2023-04-26 20:36] LABS: Glucose Point of Care 159 mg/dl (65-105)
[2023-04-27] MEDS: PIPERACILLN/TAZ 3.375GM/NS50ML 3.375 GM/50 ML BAG IVPB ×4 (03:47→20:22)
[2023-04-27 04:35] VITALS: BP 141/65; PULSE 79; RESP 16; TEMP 36.6; O2SAT 94
[2023-04-27] MEDS: LEVOTHYROXINE SODIUM 88 MCG TABLET PO (05:38)
[2023-04-27 06:43] LABS: Basophils Percent Auto 0.5 % (0.2-1.2); Eosinophils Absolute Auto 0.2 K/mm3 (0-0.3); Eosinophils Percent Auto 2.6 % (0-4.4); Hematocrit 35.3 % (37.0-47.0); Hemoglobin 11.1 g/dL (12.0-15.0); Immature Granulocyte Absolute 0.04 K/mm3 (0.00-0.031); Immature Granulocyte Percent A 0.6 % (0-0.5); Lymphocytes Absolute Auto 1.78 K/mm3 (0.9-3.2); Lymphocytes Percent Auto 28.8 % (18.3-44.2); Mean Corpuscular HGB Conc 31.4 g/dl (32-36); Mean Corpuscular Volume 92.2 fl (80-100); Mean Platelet Volume 9.3 fl (7.4-10.4); Monocytes Absolute Auto 0.5 K/mm3 (0.1-0.6); Monocytes Percent Auto 7.9 % (2.6-8.5); Neutrophils Absolute Auto 3.7 K/mm3 (1.3-6.7); Neutrophils Percent Auto 59.6 % (45.5-73.1); Platelet Count Result 324 k/mm3 (150-375); Red Blood Count 3.83 M/mm3 (4.2-5.4); Red Cell Distribution Width 14.3 % (11.5-14.5); White Blood Count 6.2 K/mm3 (4.5-10.0)
[2023-04-27 07:15] LABS: Alanine Aminotransferase 17 U/L (6-35); Albumin Level 3.4 g/dL (3.5-5.1); Alkaline Phosphatase 68 U/L (38-126); Anion Gap 4 mmol/L (8-16); Aspartate Amino Transferase 23 U/L (14-36); Bilirubin,Total 0.4 mg/dL (0.2-1.3); Blood Urea Nitrogen 14 mg/dL (7-17); Calcium 9.3 mg/dL (8.4-10.2); Carbon Dioxide 29 mmol/L (22-30); Chloride 102 mmol/L (98-107); Estimated CRCL calculation 50 ml/min; Estimated Glomerular Filt Rate > 60; Glucose 115 mg/dL (65-110); Potassium 3.2 mmol/L (3.4-5.0); Sodium 135 mmol/L (137-145)
[2023-04-27 07:48] LABS: Glucose Point of Care 132 mg/dl (65-105)
[2023-04-27] MEDS: ENOXAPARIN 40 MG/0.4 ML SYRINGE SUB-Q (08:29)
[2023-04-27] MEDS: hydroCHLOROthiazide 25 MG TABLET PO (08:29)
[2023-04-27] MEDS: VALSARTAN 80 MG TABLET PO (08:29)
[2023-04-27] MEDS: TIMOLOL MALEATE 0.5% OP SOLN 5 ML BOTTLE 1 DROP LEFT EYE (08:30)
--- NOTE | 2023-04-27 09:16 | PM.PNGS ---
Progress Note: A&P Assessment and Plan (1) Diverticulitis of large intestine with abscess: Code(s): K57.20 - Diverticulitis of large intestine with perforation and abscess without bleeding Status: Acute Assessment and Plan: exam benign, cont low fiber diet and abx, repeat CT tomorrow to assess pelvic abscess Subjective Subjective Date/Time Seen: 04/27/23 09:16 Interval history: no acute issues, vinny low fiber diet, diarrhea improved Review of Systems Review of Systems: All systems reviewed & are unremarkable except as noted in HPI and below Exam Const: General: cooperative, comfortable and no acute distress Resp: Auscultation: clear to auscultation bilaterally Cardio: Rate: regular rate Rhythm: regular rhythm GI: Inspection: normal to inspection and non-distended GI Palp: No abdominal tenderness, Yes Soft to palpation, No Tenderness to palpation present (GI), No Guarding due to palpation present (GI) and No Rigid due to palpation Other: pelvic drain c some dk s/s discharge Objective Data Vital Signs Vital Signs: Vital Signs - 24 hr 04/26/23 14:00 04/26/23 20:06 04/26/23 20:00 Temperature 36.6 C 36.6 C Pulse Rate 88 81 Respiratory Rate 16 16 Blood Pressure 113/55 L 135/57 L Pulse Oximetry 99 94 Oxygen Delivery Room Air 04/27/23 04:35 Temperature 36.6 C Pulse Rate 79 Respiratory Rate 16 Blood Pressure 141/65 H Pulse Oximetry 94 Oxygen Delivery Intake/Output Intake/Output: Intake & Output 04/24/23 04/25/23 04/26/23 04/27/23 23:59 23:59 23:59 23:59 Intake Total 7925 238 6742 510 Output Total 1010 0 0 Balance 502 352 3185 510 Meds/Results Medications: Active Medications Generic Name Dose Route Start Last Admin Trade Name Freq PRN Reason Stop Dose Admin Acetaminophen 1,000 mg 04/19/23 08:38 04/24/23 20:40 Acetaminophen 500 Mg Tablet PO 1,000 mg Q6H PRN Administration Mild Pain (1-3) or Fever Hydrocodone Bitart/Acetaminophen 1 tab 04/19/23 08:38 04/26/23 20:14 Hydrocodone/Acetaminophen (*Crx) 5-325 Mg Tablet PO 1 tab Q4H PRN Administration Pain Rated 4-6 Enoxaparin Sodium 40 mg 04/19/23 09:00 04/27/23 08:29 Enoxaparin 40 Mg/0.4 Ml Syringe SUB-Q 40 mg DAILY HANK Administration Hydrochlorothiazide 25 mg 04/20/23 09:00 04/27/23 08:29 Hydrochlorothiazide 25 Mg Tablet PO 25 mg DAILY HANK Administration Piperacillin/Tazobactam/Dextrose 3.375 gm in 50 mls @ 100 mls/hr 04/16/23 21:00 04/27/23 08:30 Zosyn 3.375 Gm/Ns 50 Ml IVPB 100 mls/hr Q6H HANK Administration Latanoprost 1 drop 04/18/23 21:25 04/26/23 20:15 Latanoprost 0.005% Op Soln 2.5 Ml Btl EACH EYE 1 drop HS HANK Administration Levothyroxine Sodium 88 mcg 04/20/23 06:30 04/27/23 05:38 Levothyroxine Sodium 88 Mcg Tablet PO 88 mcg DAILY@0630 HANK Administration Melatonin 5 mg 04/23/23 21:00 04/26/23 20:14 Melatonin 5 Mg Tablet PO 5 mg HS HANK Administration Ondansetron HCl 4 mg 04/16/23 16:14 Ondansetron Inj 4 Mg/2 Ml Vial IV PUSH Q6H PRN Nausea And Vomiting Timolol Maleate 1 drop 04/17/23 09:00 04/27/23 08:30 Timolol Maleate 0.5% Op Soln 5 Ml Bottle LEFT EYE 1 drop DAILY HANK Administration Valsartan 80 mg 04/20/23 09:00 04/27/23 08:29 Valsartan 80 Mg Tablet PO 80 mg DAILY HANK Administration Radiology Results: ITS Impressions Renal Ultrasound 04/16/23 20:04 IMPRESSION: 1. 2.9 cm cyst in right kidney. Abdomen/Pelvis CT 04/24/23 11:45 IMPRESSION: 1. Perisigmoid abscess with percutaneous drain in expected position, mildly improved from 04/20/2023. No rectal contrast in the abscess. 2. 15 mm left adrenal mass. 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 Catheter Placement CT 04/25/23 15:10 IMPRESSION: 1. Successful CT-guided perisigmoid abscess drain change. Labs Labs: Laboratory Results - last 24 hr
[2023-04-27 12:00] LABS: Glucose Point of Care 166 mg/dl (65-105)
--- NOTE | 2023-04-27 13:31 | PM.IMPN ---
Progress Note: A&P Assessment and Plan (1) Urinary retention: Code(s): R33.9 - Retention of urine, unspecified Status: Acute Assessment and Plan: Ivy in-situ (2) Abscess of pelvis: Status: Acute Assessment and Plan: Per General surgery: Had CT scan abdomen pelvis yesterday with rectal contrast showing decreased in size the pelvic abscess but is not resolved.? Current drain is in good position the abscess cavity.? There was no extravasation of contrast into the abscess cavity from the rectal contrast.? Plan 82-year-old female with past medical history [id number] diabetes mellitus, hypertension, hypothyroidism, osteoporosis presenting with abdominal pain. Found to have diverticulitis of large intestine with abscess. -postop day 4 transgluteal percutaneous pelvic peritoneal abscess drainage with catheter placement. Scant growth of Bacteroides fragilis. Remaining on Zosyn. Surgery to manage. Does not appear septic/toxic otherwise. Repeat CT with contrast: rectal contrast showing decreased in size the pelvic abscess but is not resolved.? Current drain is in good position the abscess cavity.? There was no extravasation of contrast into the abscess cavity from the rectal contrast.? 04/25/23: will size up drain, continue Abx; Will perform laparotomy if conservative management fails 04/26/23: exam benign, cont drain and abx, cont low fiber diet, CDiff pending, plan for repeat CT on Friday04/27/23: Repeat CTAP tomorrow -dehydration since resolved status post resuscitation. -right renal mass incidentally found on CT. 2.9 cm. The hyperdense cyst. Continue outpatient surveillance. -hypokalemia resolved status post replacement. -left adrenal mass 1.4 cm most likely benign. Continue outpatient surveillance. -hypertension controlled. -urinary retention status post urinary Viy catheter placement. Remove this once the peritoneal abscess is improved/resolved more. FEN: Saline lock IV. Low residue diet GI prophylaxis: Not indicated DVT prophylaxis: Lovenox 40 mg subcutaneous daily Lines: Peripheral IV Code Status: Full code Dispo: Stable. Time Spent With Patient Time with patient: 25 - 35 minutes Subjective Date/time seen: 04/27/23 13:31 Interval history: Seen and examined; denies pain but attests to lower abdomen pressure. No chills or malaise. She is being managed conservatively for a pelvic abscess with a drain in-situ. Review of Systems Review of Systems: Twelve systems were reviewed and are negative except for as per HPI. All systems reviewed & are unremarkable except as noted in HPI and below (Subjective) Eyes: Eyes: Reports no additional eye complaints ENT: Denies dysphagia Cardiovascular: Cardiovascular: Reports no additional cardiovascular complaints Respiratory: Respiratory: Reports no additional respiratory complaints Gastrointestinal: Gastrointestinal: Denies dysphagia, Reports diarrhea, Denies nausea and Denies vomiting Genitourinary: Genitourinary: Denies urinary incontinence Musculoskeletal: Musculoskeletal: Reports no additional musculoskeletal complaints and Denies abnormal gait Integumentary/Breasts: Skin/Breast: Reports system reviewed and no additional complaints, except as docu Neurologic: Reports system reviewed and no additional complaints, except as documented, Denies Abnormal speech present, Denies abnormal gait and Denies confusion Psychiatric: Psychiatric: Reports no additional psychiatric complaints and Denies confusion Exam Narrative: General: A well-developed, nontoxic-appearing female in no acute distress HEENT: PERRL, EOMI. Sclera anicteric. MMM, Oropharynx clear. Neck: Supple. FROM Respiratory: Lungs are clear to auscultation bilaterally. Cardiovascular: Regular rate and rhythm with S1-S2. Gastrointestinal: Abdomen is soft and nondistended with positive bowel sounds. minimal tenderness- left lower suprapubic, No guar
[2023-04-27 14:00] VITALS: BP 105/54; PULSE 96; RESP 16; TEMP 36.6; O2SAT 96
[2023-04-27] MEDS: SODIUM CHLORIDE 0.9% IV 1,000 ML 100 ML IV CONT (14:30)
[2023-04-27 16:40] LABS: Glucose Point of Care 109 mg/dl (65-105)
[2023-04-27] MEDS: HYDROcodone/acetaminophen (*CRX) 5-325 MG TABLET 1 TAB PO (20:22)
[2023-04-27] MEDS: MELATONIN 5 MG TABLET PO (20:22)
[2023-04-27] MEDS: LATANOPROST 0.005% OP SOLN 2.5 ML BTL 1 DROP EACH EYE (20:23)
[2023-04-27 20:25] LABS: Glucose Point of Care 167 mg/dl (65-105)
[2023-04-27 20:26] VITALS: BP 133/56; PULSE 73; RESP 16; TEMP 36.4; O2SAT 99
[2023-04-28] MEDS: PIPERACILLN/TAZ 3.375GM/NS50ML 3.375 GM/50 ML BAG IVPB ×4 (04:55→20:14)
[2023-04-28 05:50] VITALS: BP 134/61; PULSE 68; RESP 16; TEMP 36.3; O2SAT 99
[2023-04-28] MEDS: LEVOTHYROXINE SODIUM 88 MCG TABLET PO (06:26)
[2023-04-28 06:41] LABS: Alanine Aminotransferase 15 U/L (6-35); Albumin Level 3.4 g/dL (3.5-5.1); Alkaline Phosphatase 61 U/L (38-126); Anion Gap 4 mmol/L (8-16); Aspartate Amino Transferase 18 U/L (14-36); Bilirubin,Total 0.4 mg/dL (0.2-1.3); Blood Urea Nitrogen 13 mg/dL (7-17); Calcium 9.1 mg/dL (8.4-10.2); Carbon Dioxide 30 mmol/L (22-30); Chloride 102 mmol/L (98-107); Estimated CRCL calculation 57 ml/min; Estimated Glomerular Filt Rate > 60; Glucose 107 mg/dL (65-110); Sodium 136 mmol/L (137-145)
[2023-04-28 06:46] LABS: Basophils Absolute Auto 0.1 K/mm3 (0.0-0.1); Basophils Percent Auto 1.1 % (0.2-1.2); Eosinophils Absolute Auto 0.2 K/mm3 (0-0.3); Eosinophils Percent Auto 3.2 % (0-4.4); Hematocrit 35.8 % (37.0-47.0); Hemoglobin 11.1 g/dL (12.0-15.0); Immature Granulocyte Absolute 0.03 K/mm3 (0.00-0.031); Immature Granulocyte Percent A 0.6 % (0-0.5); Lymphocytes Absolute Auto 1.61 K/mm3 (0.9-3.2); Mean Corpuscular Volume 93.5 fl (80-100); Mean Platelet Volume 9.4 fl (7.4-10.4); Monocytes Absolute Auto 0.4 K/mm3 (0.1-0.6); Monocytes Percent Auto 7.8 % (2.6-8.5); Neutrophils Absolute Auto 3.1 K/mm3 (1.3-6.7); Neutrophils Percent Auto 57.3 % (45.5-73.1); Platelet Count Result 320 k/mm3 (150-375); Red Blood Count 3.83 M/mm3 (4.2-5.4); Red Cell Distribution Width 14.3 % (11.5-14.5); White Blood Count 5.4 K/mm3 (4.5-10.0)
[2023-04-28 07:28] LABS: Glucose Point of Care 117 mg/dl (65-105)
[2023-04-28 08:00] VITALS: O2SAT 99
[2023-04-28] MEDS: VALSARTAN 80 MG TABLET PO (08:09)
[2023-04-28] MEDS: ENOXAPARIN 40 MG/0.4 ML SYRINGE SUB-Q (08:09)
[2023-04-28] MEDS: hydroCHLOROthiazide 25 MG TABLET PO (08:09)
[2023-04-28] MEDS: TIMOLOL MALEATE 0.5% OP SOLN 5 ML BOTTLE 1 DROP LEFT EYE (08:10)
--- NOTE | 2023-04-28 09:38 | WPDPN ---
Progress Note: A&P Assessment and Plan (1) Abscess of pelvis: Status: Acute Assessment and Plan: Larger pelvic drain was placed Friday. Output is still purulent but less than 30cc per day right now. We will repeat CT scan abdomen pelvis without contrast today. If abscess has resolved then we will plan on removing drain and discharge home on oral antibiotics for another 10 to 14 days. (2) Sigmoid diverticulitis: Code(s): K57.32 - Diverticulitis of large intestine without perforation or abscess without bleeding Status: Acute Assessment and Plan: Continue IV antibiotics for now. She is tolerating low-fiber diet. If she can be managed non operatively for now I would recommend an extended course of oral antibiotics for least another [address] scan pending to see whether the pelvic drain can be removed. Subjective Date/time seen: 04/28/23 09:38 Interval history: Patient is sitting up in chair and seems to be doing well. No complaints. Having some formed bowel movements now. No blood in her bowel movements. Tolerating a low-fiber diet. Pelvic drain was switched over to a larger pigtail drain over guidewire 2 days ago. Output from the drain over the past 12hours looks to be about 10 to 15 cc. White blood count is normal. Afebrile. Exam GI: Other: Abdomen is soft and nondistended. No tenderness to palpation. Right transgluteal drain in place without redness around drain site output from the drain is purulent. Objective Data Vital Signs Vital Signs: Vital Signs - 24 hr 04/27/23 14:00 04/27/23 20:26 04/27/23 20:00 Temperature 36.6 C 36.4 C Pulse Rate 96 73 Respiratory Rate 16 16 Blood Pressure 105/54 L 133/56 L Pulse Oximetry 96 99 Oxygen Delivery Room Air 04/28/23 05:50 04/28/23 08:00 Temperature 36.3 C L Pulse Rate 68 Respiratory Rate 16 Blood Pressure 134/61 Pulse Oximetry 99 99 Oxygen Delivery Room Air Intake/Output Intake/Output: Intake & Output 04/25/23 04/26/23 04/27/23 04/28/23 23:59 23:59 23:59 23:59 Intake Total 450 2150 1700 250 Output Total 0 0 25 0 Balance 450 2150 1675 250 Meds/Results Medications: Active Medications Generic Name Dose Route Start Last Admin Trade Name Freq PRN Reason Stop Dose Admin Acetaminophen 1,000 mg 04/19/23 08:38 04/24/23 20:40 Acetaminophen 500 Mg Tablet PO 1,000 mg Q6H PRN Administration Mild Pain (1-3) or Fever Hydrocodone Bitart/Acetaminophen 1 tab 04/19/23 08:38 04/27/23 20:22 Hydrocodone/Acetaminophen (*Crx) 5-325 Mg Tablet PO 1 tab Q4H PRN Administration Pain Rated 4-6 Enoxaparin Sodium 40 mg 04/19/23 09:00 04/28/23 08:09 Enoxaparin 40 Mg/0.4 Ml Syringe SUB-Q 40 mg DAILY HANK Administration Hydrochlorothiazide 25 mg 04/20/23 09:00 04/28/23 08:09 Hydrochlorothiazide 25 Mg Tablet PO 25 mg DAILY HANK Administration Piperacillin/Tazobactam/Dextrose 3.375 gm in 50 mls @ 100 mls/hr 04/16/23 21:00 04/28/23 08:09 Zosyn 3.375 Gm/Ns 50 Ml IVPB 100 mls/hr Q6H HANK Administration Sodium Chloride 1,000 mls @ 100 mls/hr 04/27/23 13:35 04/28/23 03:15 Normal Saline Iv IV CONT Not Given .Q10H HANK Latanoprost 1 drop 04/18/23 21:25 04/27/23 20:23 Latanoprost 0.005% Op Soln 2.5 Ml Btl EACH EYE 1 drop HS HANK Administration Levothyroxine Sodium 88 mcg 04/20/23 06:30 04/28/23 06:26 Levothyroxine Sodium 88 Mcg Tablet PO 88 mcg DAILY@0630 HANK Administration Melatonin 5 mg 04/23/23 21:00 04/27/23 20:22 Melatonin 5 Mg Tablet PO 5 mg HS HANK Administration Ondansetron HCl 4 mg 04/16/23 16:14 Ondansetron Inj 4 Mg/2 Ml Vial IV PUSH Q6H PRN Nausea And Vomiting Timolol Maleate 1 drop 04/17/23 09:00 04/28/23 08:10 Timolol Maleate 0.5% Op Soln 5 Ml Bottle LEFT EYE 1 drop DAILY HANK Administration Valsartan 80 mg 04/20/23 09:00 04/28/23 08:09 Valsartan 80 Mg Tablet PO 80 mg D
[2023-04-28 11:18] LABS: Glucose Point of Care 134 mg/dl (65-105)
--- NOTE | 2023-04-28 11:32 | PM.IMPN ---
Progress Note: A&P Assessment and Plan (1) Urinary retention: Code(s): R33.9 - Retention of urine, unspecified Status: Acute Assessment and Plan: Ivy in-situ (2) Abscess of pelvis: Status: Acute Assessment and Plan: Per General surgery: Had CT scan abdomen pelvis yesterday with rectal contrast showing decreased in size the pelvic abscess but is not resolved.? Current drain is in good position the abscess cavity.? There was no extravasation of contrast into the abscess cavity from the rectal contrast.? 04/28/23: General surgery: Continue IV antibiotics for now.? She is tolerating low-fiber diet.? If she can be managed non operatively for now I would recommend an extended course of oral antibiotics for least another [address] scan pending to see whether the pelvic drain can be removed. Plan 82-year-old female with past medical history [id number] diabetes mellitus, hypertension, hypothyroidism, osteoporosis presenting with abdominal pain. Found to have diverticulitis of large intestine with abscess. s/p transgluteal percutaneous pelvic peritoneal abscess drainage with catheter placement. Scant growth of Bacteroides fragilis. Remaining on Zosyn. Surgery to manage. Does not appear septic/toxic otherwise. Repeat CT with contrast: rectal contrast showing decreased in size the pelvic abscess but is not resolved.? Current drain is in good position the abscess cavity.? There was no extravasation of contrast into the abscess cavity from the rectal contrast.? 04/25/23: will size up drain, continue Abx; Will perform laparotomy if conservative management fails. New drain placed CT-guided perisigmoid abscess drain exchange. 04/26/23: exam benign, cont drain and abx, cont low fiber diet, CDiff pending, plan for repeat CT on Friday04/27/23: Repeat CTAP tomorrow 04/28/23: Continue Abx; perform CTAP -dehydration since resolved status post resuscitation. -right renal mass incidentally found on CT. 2.9 cm. The hyperdense cyst. Continue outpatient surveillance. -hypokalemia resolved status post replacement. -left adrenal mass 1.4 cm most likely benign. Continue outpatient surveillance. -hypertension controlled. -urinary retention status post urinary Ivy catheter placement. Remove this once the peritoneal abscess is improved/resolved more. FEN: Saline lock IV. Low residue diet GI prophylaxis: Not indicated DVT prophylaxis: Lovenox 40 mg subcutaneous daily Lines: Peripheral IV Code Status: Full code Dispo: Stable. Time Spent With Patient Time with patient: 25 - 35 minutes Subjective Date/time seen: 04/28/23 11:32 Interval history: Seen and examined; denies pain but attests to lower abdomen pressure. No chills or malaise. She is being managed conservatively for a pelvic abscess with a drain in-situ. Review of Systems Review of Systems: Twelve systems were reviewed and are negative except for as per HPI. All systems reviewed & are unremarkable except as noted in HPI and below (Subjective) Eyes: Eyes: Reports no additional eye complaints ENT: Denies dysphagia Cardiovascular: Cardiovascular: Reports no additional cardiovascular complaints Respiratory: Respiratory: Reports no additional respiratory complaints Gastrointestinal: Gastrointestinal: Denies dysphagia, Reports diarrhea, Denies nausea and Denies vomiting Genitourinary: Genitourinary: Denies urinary incontinence Musculoskeletal: Musculoskeletal: Reports no additional musculoskeletal complaints and Denies abnormal gait Integumentary/Breasts: Skin/Breast: Reports system reviewed and no additional complaints, except as docu Neurologic: Reports system reviewed and no additional complaints, except as documented, Denies Abnormal speech present, Denies abnormal gait and Denies confusion Psychiatric: Psychiatric: Reports no additional psychiatric complaints and Denies confusion Exam Narrative: General: A well-de
[2023-04-28 14:00] VITALS: BP 122/50; PULSE 76; RESP 14; TEMP 36.5; O2SAT 96
[2023-04-28] MEDS: SODIUM CHLORIDE 0.9% IV 1,000 ML 100 ML IV CONT (15:53)
[2023-04-28 16:35] LABS: Glucose Point of Care 94 mg/dl (65-105)
[2023-04-28 20:07] VITALS: BP 139/54; PULSE 74; RESP 17; TEMP 37; O2SAT 99
[2023-04-28 20:07] LABS: Glucose Point of Care 130 mg/dl (65-105)
[2023-04-28] MEDS: HYDROcodone/acetaminophen (*CRX) 5-325 MG TABLET 1 TAB PO (20:13)
[2023-04-28] MEDS: MELATONIN 5 MG TABLET PO (20:14)
[2023-04-28] MEDS: LATANOPROST 0.005% OP SOLN 2.5 ML BTL 1 DROP EACH EYE (20:15)
[2023-04-29] MEDS: PIPERACILLN/TAZ 3.375GM/NS50ML 3.375 GM/50 ML BAG IVPB ×4 (02:35→21:49)
[2023-04-29] MEDS: SODIUM CHLORIDE 0.9% IV 1,000 ML 100 ML IV CONT ×2 (02:36→18:24)
[2023-04-29] MEDS: LEVOTHYROXINE SODIUM 88 MCG TABLET PO (05:40)
[2023-04-29 05:48] VITALS: BP 149/65; PULSE 60; RESP 17; TEMP 36.4; O2SAT 97
[2023-04-29 06:55] LABS: Basophils Absolute Auto 0.1 K/mm3 (0.0-0.1); Basophils Percent Auto 1.1 % (0.2-1.2); Eosinophils Absolute Auto 0.2 K/mm3 (0-0.3); Eosinophils Percent Auto 3.3 % (0-4.4); Hematocrit 37.3 % (37.0-47.0); Hemoglobin 11.2 g/dL (12.0-15.0); Immature Granulocyte Absolute 0.02 K/mm3 (0.00-0.031); Immature Granulocyte Percent A 0.4 % (0-0.5); Lymphocytes Absolute Auto 1.36 K/mm3 (0.9-3.2); Lymphocytes Percent Auto 25.1 % (18.3-44.2); Mean Corpuscular Hemoglobin 28.2 pg (26-34); Mean Platelet Volume 9.3 fl (7.4-10.4); Monocytes Absolute Auto 0.5 K/mm3 (0.1-0.6); Monocytes Percent Auto 8.7 % (2.6-8.5); Neutrophils Absolute Auto 3.3 K/mm3 (1.3-6.7); Neutrophils Percent Auto 61.4 % (45.5-73.1); Platelet Count Result 302 k/mm3 (150-375); Red Blood Count 3.97 M/mm3 (4.2-5.4); White Blood Count 5.4 K/mm3 (4.5-10.0)
[2023-04-29 07:05] LABS: Alanine Aminotransferase 14 U/L (6-35); Albumin Level 3.3 g/dL (3.5-5.1); Alkaline Phosphatase 61 U/L (38-126); Anion Gap -2 mmol/L (8-16); Aspartate Amino Transferase 18 U/L (14-36); Bilirubin,Total 0.4 mg/dL (0.2-1.3); Blood Urea Nitrogen 10 mg/dL (7-17); Calcium 9.3 mg/dL (8.4-10.2); Carbon Dioxide 35 mmol/L (22-30); Chloride 103 mmol/L (98-107); Estimated CRCL calculation 57 ml/min; Estimated Glomerular Filt Rate > 60; Glucose 105 mg/dL (65-110); Potassium 3.2 mmol/L (3.4-5.0); Sodium 136 mmol/L (137-145)
[2023-04-29 09:14] LABS: Glucose Point of Care 105 mg/dl (65-105)
[2023-04-29] MEDS: TIMOLOL MALEATE 0.5% OP SOLN 5 ML BOTTLE 1 DROP LEFT EYE (10:01)
[2023-04-29] MEDS: VALSARTAN 80 MG TABLET PO (10:01)
[2023-04-29] MEDS: ENOXAPARIN 40 MG/0.4 ML SYRINGE SUB-Q (10:01)
[2023-04-29] MEDS: hydroCHLOROthiazide 25 MG TABLET PO (10:02)
[2023-04-29 12:53] LABS: Glucose Point of Care 233 mg/dl (65-105)
[2023-04-29 14:00] VITALS: BP 130/54; PULSE 76; RESP 16; TEMP 36.7; O2SAT 98
--- NOTE | 2023-04-29 15:02 | PM.IMPN ---
Progress Note: A&P Assessment and Plan (1) Urinary retention: Code(s): R33.9 - Retention of urine, unspecified Status: Acute Assessment and Plan: Ivy in-situ (2) Abscess of pelvis: Status: Acute Assessment and Plan: Per General surgery: Had CT scan abdomen pelvis yesterday with rectal contrast showing decreased in size the pelvic abscess but is not resolved.? Current drain is in good position the abscess cavity.? There was no extravasation of contrast into the abscess cavity from the rectal contrast.? 04/28/23: General surgery: Continue IV antibiotics for now.? She is tolerating low-fiber diet.? If she can be managed non operatively for now I would recommend an extended course of oral antibiotics for least another [address] scan pending to see whether the pelvic drain can be removed. (3) Type 2 diabetes mellitus: Code(s): E11.9 - Type 2 diabetes mellitus without complications Status: Acute (4) Hypertension: Code(s): I10 - Essential (primary) hypertension Status: Chronic (5) Hypothyroidism: Code(s): E03.9 - Hypothyroidism, unspecified Status: Chronic (6) Sigmoid diverticulitis: Code(s): K57.32 - Diverticulitis of large intestine without perforation or abscess without bleeding Status: Acute Assessment and Plan: Acute, Severe On Zosyn Plan 82-year-old female with past medical history [id number] diabetes mellitus, hypertension, hypothyroidism, osteoporosis presenting with abdominal pain. Found to have diverticulitis of large intestine with abscess. s/p transgluteal percutaneous pelvic peritoneal abscess drainage with catheter placement. Scant growth of Bacteroides fragilis. Remaining on Zosyn. Surgery to manage. Does not appear septic/toxic otherwise. Repeat CT with contrast: rectal contrast showing decreased in size the pelvic abscess but is not resolved.? Current drain is in good position the abscess cavity.? There was no extravasation of contrast into the abscess cavity from the rectal contrast.? 04/25/23: will size up drain, continue Abx; Will perform laparotomy if conservative management fails. New drain placed CT-guided perisigmoid abscess drain exchange. 04/26/23: exam benign, cont drain and abx, cont low fiber diet, CDiff pending, plan for repeat CT on Friday04/27/23: Repeat CTAP tomorrow 04/28/23: Continue Abx; perform CTAP 04/29/23: Will be discharged once cleared by General surgery; likely on at least 2 week antibiotics -dehydration since resolved status post resuscitation. -right renal mass incidentally found on CT. 2.9 cm. The hyperdense cyst. Continue outpatient surveillance. -hypokalemia resolved status post replacement. -left adrenal mass 1.4 cm most likely benign. Continue outpatient surveillance with oncology -hypertension controlled. -urinary retention status post urinary Ivy catheter placement. Remove this once the peritoneal abscess is improved/resolved more. FEN: Saline lock IV. Low residue diet GI prophylaxis: Not indicated DVT prophylaxis: Lovenox 40 mg subcutaneous daily Lines: Peripheral IV Code Status: Full code Dispo: Stable. Time Spent With Patient Time with patient: 25 - 35 minutes Subjective Date/time seen: 04/29/23 15:02 Interval history: Seen and examined; She is being managed conservatively for a pelvic abscess with a drain in-situ. 04/29/23: Plan is to remove drain today and discharge soon after; denies fresh concerns.. BMs are regular; denies pain but attests to lower abdomen pressure though improved.. No chills or malaise. Review of Systems Review of Systems: Twelve systems were reviewed and are negative except for as per HPI. All systems reviewed & are unremarkable except as noted in HPI and below (Subjective) Constitutional: Constitutional: Reports fatigue Eyes: Eyes: Reports no additional eye complaints ENT: Denies dysphagia Cardiovascular: [facility]
[2023-04-29 17:27] LABS: Glucose Point of Care 96 mg/dl (65-105)
--- NOTE | 2023-04-29 18:39 | PC.NURSE ---
On 04/29/23, the LICENSED MENTAL HEALTH PROFESSIONAL, RAY HEBERT, provided care and completed Tiggly documentation on this patient. I have reviewed the LICENSED MENTAL HEALTH PROFESSIONAL's documentation and agree with the findings.
--- NOTE | 2023-04-29 19:31 | WPDPN ---
Progress Note: A&P Assessment and Plan (1) Abscess of pelvis: Status: Acute Assessment and Plan: Abscess adequately drained now on CT scan. We will remove pelvic drain today at the bedside. Can likely discharge home tomorrow she remains stable on oral antibiotics for another 10 days. (2) Sigmoid diverticulitis: Code(s): K57.32 - Diverticulitis of large intestine without perforation or abscess without bleeding Status: Acute Assessment and Plan: Can transition to oral antibiotics. Plan on keeping her on antibiotics for another 10 days orally at home. Subjective Date/time seen: 04/29/23 19:31 Interval history: Patient is doing well. Minimal drainage from the right transgluteal pelvic drain. No fever. White blood count normal. Exam Skin: Other: Right transgluteal drain site clean without any drainage of blood or pus out around the drain. Objective Data Vital Signs Vital Signs: Vital Signs - 24 hr 04/28/23 20:07 04/28/23 20:00 04/29/23 05:48 Temperature 37.0 C 36.4 C L Pulse Rate 74 60 Respiratory Rate 17 17 Blood Pressure 139/54 L 149/65 H Pulse Oximetry 99 97 Oxygen Delivery Room Air 04/29/23 10:35 04/29/23 14:00 Temperature 36.7 C Pulse Rate 76 Respiratory Rate 16 Blood Pressure 130/54 L Pulse Oximetry 98 Oxygen Delivery Room Air Intake/Output Intake/Output: Intake & Output 04/26/23 04/27/23 04/28/23 04/29/23 23:59 23:59 23:59 23:59 Intake Total 2150 1700 2210 2750 Output Total 0 25 0 Balance 2150 1675 2210 2750 Meds/Results Medications: Active Medications Generic Name Dose Route Start Last Admin Trade Name Freq PRN Reason Stop Dose Admin Acetaminophen 1,000 mg 04/19/23 08:38 04/24/23 20:40 Acetaminophen 500 Mg Tablet PO 1,000 mg Q6H PRN Administration Mild Pain (1-3) or Fever Enoxaparin Sodium 40 mg 04/19/23 09:00 04/29/23 10:01 Enoxaparin 40 Mg/0.4 Ml Syringe SUB-Q 40 mg DAILY HANK Administration Hydrochlorothiazide 25 mg 04/20/23 09:00 04/29/23 10:02 Hydrochlorothiazide 25 Mg Tablet PO 25 mg DAILY HANK Administration Piperacillin/Tazobactam/Dextrose 3.375 gm in 50 mls @ 100 mls/hr 04/16/23 21:00 04/29/23 15:08 Zosyn 3.375 Gm/Ns 50 Ml IVPB Infused Q6H HANK Infusion Sodium Chloride 1,000 mls @ 100 mls/hr 04/27/23 13:35 04/29/23 18:24 Normal Saline Iv IV CONT 100 mls/hr .Q10H HANK Administration Latanoprost 1 drop 04/18/23 21:25 04/28/23 20:15 Latanoprost 0.005% Op Soln 2.5 Ml Btl EACH EYE 1 drop HS HANK Administration Levothyroxine Sodium 88 mcg 04/20/23 06:30 04/29/23 05:40 Levothyroxine Sodium 88 Mcg Tablet PO 88 mcg DAILY@0630 HANK Administration Melatonin 5 mg 04/23/23 21:00 04/28/23 20:14 Melatonin 5 Mg Tablet PO 5 mg HS HANK Administration Ondansetron HCl 4 mg 04/16/23 16:14 Ondansetron Inj 4 Mg/2 Ml Vial IV PUSH Q6H PRN Nausea And Vomiting Timolol Maleate 1 drop 04/17/23 09:00 04/29/23 10:01 Timolol Maleate 0.5% Op Soln 5 Ml Bottle LEFT EYE 1 drop DAILY HANK Administration Valsartan 80 mg 04/20/23 09:00 04/29/23 10:01 Valsartan 80 Mg Tablet PO 80 mg DAILY HANK Administration Radiology Results: ITS Impressions Renal Ultrasound 04/16/23 20:04 IMPRESSION: 1. 2.9 cm cyst in right kidney. Catheter Placement CT 04/25/23 15:10 IMPRESSION: 1. Successful CT-guided perisigmoid abscess drain change. Abdomen/Pelvis CT 04/28/23 10:37 IMPRESSION: 1. Unchanged right transgluteal percutaneous pelvic abscess drain with resolution of the prior pelvic abscess. 2. Extensive diverticulosis along with diffuse mild wall thickening of the colon consistent with colitis which could be infectious, inflammatory or less likely ischemic in etiology. 3. Nonspecific small amount of gas within the bladder. Correlate for recent instrumentation or Ivy catheterization. 4. Unchanged 1.5 cm left adren
[2023-04-29] MEDS: MORPHINE SULFATE (*CRX) 4 MG/ML INJ IV PUSH (19:48)
[2023-04-29 20:14] LABS: Glucose Point of Care 128 mg/dl (65-105)
[2023-04-29 21:38] VITALS: BP 135/50; PULSE 79; RESP 12; TEMP 36.9; O2SAT 95
[2023-04-30] MEDS: PIPERACILLN/TAZ 3.375GM/NS50ML 3.375 GM/50 ML BAG IVPB ×2 (03:05→08:23)
[2023-04-30] MEDS: SODIUM CHLORIDE 0.9% IV 1,000 ML 100 ML IV CONT (05:16)
[2023-04-30] MEDS: LEVOTHYROXINE SODIUM 88 MCG TABLET PO (05:18)
[2023-04-30 05:50] VITALS: BP 144/61; PULSE 72; RESP 12; TEMP 36.9; O2SAT 95
[2023-04-30 07:18] LABS: Basophils Absolute Auto 0.1 K/mm3 (0.0-0.1); Basophils Percent Auto 0.9 % (0.2-1.2); Eosinophils Absolute Auto 0.1 K/mm3 (0-0.3); Eosinophils Percent Auto 2.2 % (0-4.4); Hematocrit 32.4 % (37.0-47.0); Hemoglobin 10.1 g/dL (12.0-15.0); Immature Granulocyte Absolute 0.02 K/mm3 (0.00-0.031); Immature Granulocyte Percent A 0.3 % (0-0.5); Lymphocytes Percent Auto 18.9 % (18.3-44.2); Mean Corpuscular HGB Conc 31.2 g/dl (32-36); Mean Corpuscular Volume 93.1 fl (80-100); Mean Platelet Volume 9.6 fl (7.4-10.4); Monocytes Absolute Auto 0.5 K/mm3 (0.1-0.6); Monocytes Percent Auto 8.4 % (2.6-8.5); Neutrophils Percent Auto 69.3 % (45.5-73.1); Platelet Count Result 268 k/mm3 (150-375); Red Blood Count 3.48 M/mm3 (4.2-5.4); Red Cell Distribution Width 14.2 % (11.5-14.5); White Blood Count 5.8 K/mm3 (4.5-10.0)
[2023-04-30 07:45] LABS: Alanine Aminotransferase 12 U/L (6-35); Albumin Level 3.1 g/dL (3.5-5.1); Alkaline Phosphatase 58 U/L (38-126); Anion Gap 5 mmol/L (8-16); Aspartate Amino Transferase 16 U/L (14-36); Bilirubin,Total 0.5 mg/dL (0.2-1.3); Blood Urea Nitrogen 10 mg/dL (7-17); Calcium 8.7 mg/dL (8.4-10.2); Carbon Dioxide 28 mmol/L (22-30); Chloride 103 mmol/L (98-107); Estimated CRCL calculation 57 ml/min; Estimated Glomerular Filt Rate > 60; Glucose 104 mg/dL (65-110); Potassium 2.9 mmol/L (3.4-5.0); Sodium 136 mmol/L (137-145)
[2023-04-30 07:58] LABS: Glucose Point of Care 107 mg/dl (65-105)
[2023-04-30] MEDS: ENOXAPARIN 40 MG/0.4 ML SYRINGE SUB-Q (08:23)
[2023-04-30] MEDS: VALSARTAN 80 MG TABLET PO (08:24)
[2023-04-30] MEDS: TIMOLOL MALEATE 0.5% OP SOLN 5 ML BOTTLE 1 DROP LEFT EYE (08:24)
[2023-04-30] MEDS: hydroCHLOROthiazide 25 MG TABLET PO (08:24)
[2023-04-30] MEDS: POTASSIUM CHLORIDE 20 MEQ ER TABLET 40 MEQ PO (09:13)
[2023-04-30] MEDS: POTASSIUM CHLORIDE INJ 40 MEQ in SODIUM CHLORIDE 0.9% IV 500 ML 130 MEQ IVPB (09:13)
[2023-04-30 09:36] LABS: Phosphorus 2.5 mg/dL (2.5-4.5)
--- NOTE | 2023-04-30 10:15 | PCPTNOTE ---
Patient refused PT at this time. Patient states she is receiving potassium at this time and would like to wait until IV is complete before participating in therapy. PT will continue to follow per plan of care.
[2023-04-30 11:53] LABS: Glucose Point of Care 124 mg/dl (65-105)
[2023-04-30] MEDS: AMOXICILLIN/CLAVULANATE K 875-125 MG TAB 1 TABLET PO ×2 (12:01→20:33)
--- NOTE | 2023-04-30 13:29 | PM.PNGS ---
Progress Note: A&P Assessment and Plan (1) Abscess of pelvis: Status: Acute Assessment and Plan: Abscess adequately drained and percutaneous pelvic drain removed yesterday. She is surgically stable to discharge home on oral antibiotics for another 10 days once medically stable. Her potassium is being replaced this morning. (2) Sigmoid diverticulitis: Code(s): K57.32 - Diverticulitis of large intestine without perforation or abscess without bleeding Status: Acute Assessment and Plan: Transitioned to oral antibiotics and doing well. Plan would be to discharge home on oral antibiotics and she can follow-up with Dr. Hameed in about 2 weeks. Plan I have discussed the patient's case and plan of care with Dr. Live. Subjective Subjective Date/Time Seen: 04/30/23 13:29 Patient reports: no new complaints, tolerating a regular diet, flatus, bowel movement (no more diarrhea) and afebrile Interval history: Patient seen today. Transgluteal perc drain removed yesterday. WBC normal. Her potassium was low today and is being replaced. She also reports some very mild lower abdominal cramping, but no significant abdominal pain. She had multiple BMs yesterday and one today. Exam Const: General: comfortable and no acute distress Orientation/consciousness: patient oriented x3 GI: Inspection: non-distended GI Palp: Yes Soft to palpation, Yes Tenderness to palpation present (GI) (very mild suprapubic tenderness), No Guarding due to palpation present (GI) and No Rebound tenderness present Auscultation: normal bowel sounds Objective Data Vital Signs Vital Signs: Vital Signs - 24 hr 04/29/23 14:00 04/29/23 21:38 04/29/23 20:00 Temperature 98.1 F 98.4 F Pulse Rate 76 79 Respiratory Rate 16 12 Blood Pressure 130/54 L 135/50 L Pulse Oximetry 98 95 Oxygen Delivery Room Air 04/30/23 05:50 Temperature 98.5 F Pulse Rate 72 Respiratory Rate 12 Blood Pressure 144/61 H Pulse Oximetry 95 Oxygen Delivery Intake/Output Intake/Output: Intake & Output 04/27/23 04/28/23 04/29/23 04/30/23 23:59 23:59 23:59 23:59 Intake Total 1700 2210 2800 2150 Output Total 25 0 Balance 1675 2210 2800 2150 Meds/Results Medications: Active Medications Generic Name Dose Route Start Last Admin Trade Name Freq PRN Reason Stop Dose Admin Acetaminophen 1,000 mg 04/19/23 08:38 04/24/23 20:40 Acetaminophen 500 Mg Tablet PO 1,000 mg Q6H PRN Administration Mild Pain (1-3) or Fever Amoxicillin/Clavulanate Potassium 1 tablet 04/30/23 13:00 04/30/23 12:01 Amoxicillin/Clavulanate K 875-125 Mg Tab PO 05/09/23 21:01 1 tablet Q12HR HANK Administration Enoxaparin Sodium 40 mg 04/19/23 09:00 04/30/23 08:23 Enoxaparin 40 Mg/0.4 Ml Syringe SUB-Q 40 mg DAILY HANK Administration Hydrochlorothiazide 25 mg 04/20/23 09:00 04/30/23 08:24 Hydrochlorothiazide 25 Mg Tablet PO 25 mg DAILY HANK Administration Sodium Chloride 1,000 mls @ 100 mls/hr 04/27/23 13:35 04/30/23 05:16 Normal Saline Iv IV CONT 100 mls/hr .Q10H HANK Administration Latanoprost 1 drop 04/18/23 21:25 04/29/23 21:51 Latanoprost 0.005% Op Soln 2.5 Ml Btl EACH EYE Not Given HS HANK Levothyroxine Sodium 88 mcg 04/20/23 06:30 04/30/23 05:18 Levothyroxine Sodium 88 Mcg Tablet PO 88 mcg DAILY@0630 HANK Administration Melatonin 5 mg 04/23/23 21:00 04/29/23 21:51 Melatonin 5 Mg Tablet PO Not Given HS HANK Ondansetron HCl 4 mg 04/16/23 16:14 Ondansetron Inj 4 Mg/2 Ml Vial IV PUSH Q6H PRN Nausea And Vomiting Timolol Maleate 1 drop 04/17/23 09:00 04/30/23 08:24 Timolol Maleate 0.5% Op Soln 5 Ml Bottle LEFT EYE 1 drop DAILY HANK Administration Valsartan 80 mg 04/20/23 09:00 04/30/23 08:24 Valsartan 80 Mg Tablet PO 80 mg DAILY HANK Administration Radiology Results: ITS Impressions Renal Ultrasound 04/16/23 20:04 IMPRESSION: 1.
[2023-04-30 14:00] VITALS: BP 144/65; PULSE 73; RESP 18; TEMP 35.9; O2SAT 97
[2023-04-30 16:40] LABS: Glucose Point of Care 103 mg/dl (65-105)
--- NOTE | 2023-04-30 16:47 | PM.IMPN ---
Progress Note: A&P Assessment and Plan (1) Urinary retention: Code(s): R33.9 - Retention of urine, unspecified Status: Acute Assessment and Plan: DC Ivy ... give patient trial of void (2) Abscess of pelvis: Status: Acute Assessment and Plan: For pelvic drain removed by surgeon Okay to DC home from surgery standpoint on 10 days of oral antibiotics Spoke with IV pharmacist and started patient on Augmentin b.i.d. (3) Type 2 diabetes mellitus: Code(s): E11.9 - Type 2 diabetes mellitus without complications Status: Acute Assessment and Plan: Continue diabetic meds Accu-Cheks qAC and qHS ordered with low-dose insulin coverage as per protocol (4) Hypertension: Code(s): I10 - Essential (primary) hypertension Status: Chronic (5) Hypothyroidism: Code(s): E03.9 - Hypothyroidism, unspecified Status: Chronic (6) Sigmoid diverticulitis: Code(s): K57.32 - Diverticulitis of large intestine without perforation or abscess without bleeding Status: Acute Assessment and Plan: Acute, Severe On Zosyn Plan 82-year-old female with past medical history [id number] diabetes mellitus, hypertension, hypothyroidism, osteoporosis presenting with abdominal pain. Found to have diverticulitis of large intestine with abscess. s/p transgluteal percutaneous pelvic peritoneal abscess drainage with catheter placement. Scant growth of Bacteroides fragilis. Remaining on Zosyn. Surgery to manage. Does not appear septic/toxic otherwise. Repeat CT with contrast: rectal contrast showing decreased in size the pelvic abscess but is not resolved.? Current drain is in good position the abscess cavity.? There was no extravasation of contrast into the abscess cavity from the rectal contrast.? 04/25/23: will size up drain, continue Abx; Will perform laparotomy if conservative management fails. New drain placed CT-guided perisigmoid abscess drain exchange. 04/26/23: exam benign, cont drain and abx, cont low fiber diet, CDiff pending, plan for repeat CT on Friday04/27/23: Repeat CTAP tomorrow 04/28/23: Continue Abx; perform CTAP 04/29/23: Will be discharged once cleared by General surgery; likely on at least 2 week antibiotics 04/30/23: Patient cleared by surgery to be discharged on 10 days of oral antibiotics. Severely diminished potassium which is being replaced. -dehydration since resolved status post resuscitation. -right renal mass incidentally found on CT. 2.9 cm. The hyperdense cyst. Continue outpatient surveillance. -hypokalemia: Potassium level is 2.9 today. Aggressive IV and p.o. potassium replacement ordered. Repeat labs in a.m.. May need potassium supplementation upon DC. -left adrenal mass 1.4 cm most likely benign. Continue outpatient surveillance with oncology -hypertension controlled. -urinary retention status post urinary Ivy catheter placement. DC Ivy. Patient given trial of void DC planning home in a.m. if she remains stable and potassium is within normal limits. FEN: Saline lock IV. Low residue diet GI prophylaxis: Not indicated DVT prophylaxis: Lovenox 40 mg subcutaneous daily Lines: Peripheral IV Code Status: Full code Dispo: Stable. ? Patient seen and examined at bedside during my morning rounds ? Collaborated with patient's nurse at the bedside in detail and addressed all concerns ? Labs, electrolytes, radiology, investigations and test results reviewed ? Consult/Nursing/Ancilliary notes on the chart reviewed and appreciated ? Spoke with patient/family at the bedside and answered all the questions that they had Repeat labs in a.m. Electrolyte replacement as per protocol. Patient will be monitored very closely on the floor. Further recommendations as per the hospital course. I am signing off. Patient's medical care will be taken over by my covering hospitalist attending in am. Time Spent With Patient Time with patient: 15
[2023-04-30] MEDS: MELATONIN 5 MG TABLET PO (20:33)
[2023-04-30] MEDS: LATANOPROST 0.005% OP SOLN 2.5 ML BTL 1 DROP EACH EYE (20:34)
[2023-04-30 21:04] LABS: Glucose Point of Care 129 mg/dl (65-105)
[2023-04-30 21:19] VITALS: BP 135/55; PULSE 80; RESP 18; TEMP 36.5; O2SAT 96
[2023-05-01 05:43] VITALS: BP 146/66; PULSE 78; RESP 18; TEMP 36.3; O2SAT 97
[2023-05-01] MEDS: LEVOTHYROXINE SODIUM 88 MCG TABLET PO (06:05)
[2023-05-01 06:54] LABS: Basophils Percent Auto 0.6 % (0.2-1.2); Eosinophils Absolute Auto 0.1 K/mm3 (0-0.3); Eosinophils Percent Auto 1.4 % (0-4.4); Hemoglobin 10.8 g/dL (12.0-15.0); Immature Granulocyte Absolute 0.03 K/mm3 (0.00-0.031); Immature Granulocyte Percent A 0.5 % (0-0.5); Lymphocytes Absolute Auto 1.33 K/mm3 (0.9-3.2); Mean Corpuscular HGB Conc 30.9 g/dl (32-36); Mean Corpuscular Hemoglobin 28.8 pg (26-34); Mean Corpuscular Volume 93.3 fl (80-100); Mean Platelet Volume 9.7 fl (7.4-10.4); Monocytes Absolute Auto 0.5 K/mm3 (0.1-0.6); Monocytes Percent Auto 7.1 % (2.6-8.5); Neutrophils Absolute Auto 4.4 K/mm3 (1.3-6.7); Neutrophils Percent Auto 69.4 % (45.5-73.1); Platelet Count Result 258 k/mm3 (150-375); Red Blood Count 3.75 M/mm3 (4.2-5.4); Red Cell Distribution Width 14.3 % (11.5-14.5); White Blood Count 6.3 K/mm3 (4.5-10.0)
[2023-05-01 07:19] LABS: Alanine Aminotransferase 11 U/L (6-35); Albumin Level 3.5 g/dL (3.5-5.1); Alkaline Phosphatase 66 U/L (38-126); Anion Gap 2 mmol/L (8-16); Aspartate Amino Transferase 18 U/L (14-36); Bilirubin,Total 0.5 mg/dL (0.2-1.3); Blood Urea Nitrogen 8 mg/dL (7-17); Calcium 9.2 mg/dL (8.4-10.2); Carbon Dioxide 29 mmol/L (22-30); Chloride 103 mmol/L (98-107); Estimated CRCL calculation 50 ml/min; Estimated Glomerular Filt Rate > 60; Glucose 106 mg/dL (65-110); Potassium 3.7 mmol/L (3.4-5.0); Sodium 134 mmol/L (137-145)
[2023-05-01 07:49] LABS: Glucose Point of Care 107 mg/dl (65-105)
[2023-05-01] MEDS: AMOXICILLIN/CLAVULANATE K 875-125 MG TAB 1 TABLET PO (09:09)
[2023-05-01] MEDS: VALSARTAN 80 MG TABLET PO (09:09)
[2023-05-01] MEDS: hydroCHLOROthiazide 25 MG TABLET PO (09:09)
[2023-05-01 09:10] VITALS: BP 151/68; PULSE 91; O2SAT 95
[2023-05-01] MEDS: ENOXAPARIN 40 MG/0.4 ML SYRINGE SUB-Q (09:10)
[2023-05-01] MEDS: TIMOLOL MALEATE 0.5% OP SOLN 5 ML BOTTLE 1 DROP LEFT EYE (09:10)
--- NOTE | 2023-05-01 10:47 | PM.PNGS ---
Progress Note: A&P Assessment and Plan (1) Abscess of pelvis: Status: Acute Assessment and Plan: Abscess adequately drained and percutaneous pelvic drain removed 2 days ago. She is surgically stable to discharge home on oral antibiotics for another 10 days once medically stable. (2) Sigmoid diverticulitis: Code(s): K57.32 - Diverticulitis of large intestine without perforation or abscess without bleeding Status: Acute Assessment and Plan: Transitioned to oral antibiotics and doing well. Plan would be to discharge home on oral antibiotics and she can follow-up with Dr. Hameed in about 2 weeks. Plan I have discussed the patient's case and plan of care with Dr. Live. Subjective Subjective Date/Time Seen: 05/01/23 10:47 Patient reports: no new complaints, tolerating a regular diet, flatus, bowel movement and afebrile Interval history: Patient doing well today. No acute events overnight or new complaints. She still has some minor cramping across her lower abdomen, but she feels this is related to gas pains. No abdominal pain, nausea, or vomiting. Eating well. Exam GI: Inspection: non-distended GI Palp: Yes Soft to palpation, No Tenderness to palpation present (GI), No Guarding due to palpation present (GI) and No Rebound tenderness present Auscultation: normal bowel sounds Objective Data Vital Signs Vital Signs: Vital Signs - 24 hr 04/30/23 14:00 04/30/23 21:19 04/30/23 20:00 Temperature 96.7 F L 97.7 F Pulse Rate 73 80 Respiratory Rate 18 18 Blood Pressure 144/65 H 135/55 L Pulse Oximetry 97 96 Oxygen Delivery Room Air 05/01/23 05:43 Temperature 97.3 F L Pulse Rate 78 Respiratory Rate 18 Blood Pressure 146/66 H Pulse Oximetry 97 Oxygen Delivery Intake/Output Intake/Output: Intake & Output 04/28/23 04/29/23 04/30/23 05/01/23 23:59 23:59 23:59 23:59 Intake Total 2210 2800 4270 476 Output Total 0 3 Balance 2210 2800 4267 476 Meds/Results Medications: Active Medications Generic Name Dose Route Start Last Admin Trade Name Freq PRN Reason Stop Dose Admin Acetaminophen 1,000 mg 04/19/23 08:38 04/24/23 20:40 Acetaminophen 500 Mg Tablet PO 1,000 mg Q6H PRN Administration Mild Pain (1-3) or Fever Amoxicillin/Clavulanate Potassium 1 tablet 04/30/23 13:00 05/01/23 09:09 Amoxicillin/Clavulanate K 875-125 Mg Tab PO 05/09/23 21:01 1 tablet Q12HR HANK Administration Enoxaparin Sodium 40 mg 04/19/23 09:00 05/01/23 09:10 Enoxaparin 40 Mg/0.4 Ml Syringe SUB-Q 40 mg DAILY HANK Administration Hydrochlorothiazide 25 mg 04/20/23 09:00 05/01/23 09:09 Hydrochlorothiazide 25 Mg Tablet PO 25 mg DAILY HANK Administration Sodium Chloride 1,000 mls @ 100 mls/hr 04/27/23 13:35 05/01/23 01:23 Normal Saline Iv IV CONT Not Given .Q10H HAKN Latanoprost 1 drop 04/18/23 21:25 04/30/23 20:34 Latanoprost 0.005% Op Soln 2.5 Ml Btl EACH EYE 1 drop HS HANK Administration Levothyroxine Sodium 88 mcg 04/20/23 06:30 05/01/23 06:05 Levothyroxine Sodium 88 Mcg Tablet PO 88 mcg DAILY@0630 HANK Administration Melatonin 5 mg 04/23/23 21:00 04/30/23 20:33 Melatonin 5 Mg Tablet PO 5 mg HS HANK Administration Ondansetron HCl 4 mg 04/16/23 16:14 Ondansetron Inj 4 Mg/2 Ml Vial IV PUSH Q6H PRN Nausea And Vomiting Timolol Maleate 1 drop 04/17/23 09:00 05/01/23 09:10 Timolol Maleate 0.5% Op Soln 5 Ml Bottle LEFT EYE 1 drop DAILY HANK Administration Valsartan 80 mg 04/20/23 09:00 05/01/23 09:09 Valsartan 80 Mg Tablet PO 80 mg DAILY HANK Administration Radiology Results: ITS Impressions Renal Ultrasound 04/16/23 20:04 IMPRESSION: 1. 2.9 cm cyst in right kidney. Catheter Placement CT 04/25/23 15:10 IMPRESSION: 1. Successful CT-guided perisigmoid abscess drain change. Abdomen/Pelvis CT 04/28/23 10:37 IMPRESSION: 1. Unchanged right transg
[2023-05-01 10:53] VITALS: O2SAT 96
--- NOTE | 2023-05-01 11:02 | PCNWS ---
Weekly nutritional screen. Patient is tolerating current low fiber diet with adequate intake 75-100%. No weight loss reported. No nutritional needs at this time.
[2023-05-01 12:11] LABS: Glucose Point of Care 251 mg/dl (65-105)
--- NOTE | 2023-05-01 13:34 | PCPTNOTE ---
Patient declined PT stating she was feeling better earlier in the day but now is having issues with bleeding. RN aware. PT will continue to follow per plan of care.
[2023-05-01 14:00] VITALS: BP 136/66; PULSE 84; RESP 18; TEMP 36.9; O2SAT 97
--- NOTE | 2023-05-01 14:19 | PM.DS ---
DS: Admitting Diagnosis Discharge Date 05/01/2023 Admitting Diagnosis Abdominal pain. DS: Discharge Diagnosis Discharge Diagnosis (1) Urinary retention: Code(s): R33.9 - Retention of urine, unspecified Status: Acute Assessment and Plan: DC Ivy ... give patient trial of void (2) Abscess of pelvis: Status: Acute Assessment and Plan: For pelvic drain removed by surgeon Okay to DC home from surgery standpoint on 10 days of oral antibiotics Spoke with IV pharmacist and started patient on Augmentin b.i.d. (3) Type 2 diabetes mellitus: Code(s): E11.9 - Type 2 diabetes mellitus without complications Status: Acute Assessment and Plan: Continue diabetic meds Accu-Cheks qAC and qHS ordered with low-dose insulin coverage as per protocol (4) Hypertension: Code(s): I10 - Essential (primary) hypertension Status: Chronic Assessment and Plan: Chronic and stable (5) Hypothyroidism: Code(s): E03.9 - Hypothyroidism, unspecified Status: Chronic Assessment and Plan: Chronic and stable (6) Sigmoid diverticulitis: Code(s): K57.32 - Diverticulitis of large intestine without perforation or abscess without bleeding Status: Acute Assessment and Plan: Resolved with iv zosyn DS: Summary Hospital Course Hospital Course: 82-year-old female with past medical history [id number] diabetes mellitus, hypertension, hypothyroidism, osteoporosis presenting with abdominal pain. Found to have diverticulitis of large intestine with abscess. s/p transgluteal percutaneous pelvic peritoneal abscess drainage with catheter placement. Scant growth of Bacteroides fragilis. Remaining on Zosyn. Surgery to manage. Does not appear septic/toxic otherwise. Repeat CT with contrast: rectal contrast showing decreased in size the pelvic abscess but is not resolved.? Current drain is in good position the abscess cavity.? There was no extravasation of contrast into the abscess cavity from the rectal contrast.? 04/25/23: will size up drain, continue Abx; Will perform laparotomy if conservative management fails. New drain placed CT-guided perisigmoid abscess drain exchange. 04/26/23: exam benign, cont drain and abx, cont low fiber diet, CDiff pending, plan for repeat CT on Friday04/27/23: Repeat CTAP tomorrow 04/28/23: Continue Abx; perform CTAP 04/29/23: Will be discharged once cleared by General surgery; likely on at least 2 week antibiotics 04/30/23: Patient cleared by surgery to be discharged on 10 days of oral antibiotics. Severely diminished potassium which is being replaced. -dehydration since resolved status post resuscitation. -right renal mass incidentally found on CT. 2.9 cm. The hyperdense cyst. Continue outpatient surveillance. -hypokalemia: Potassium level is 2.9 today. Aggressive IV and p.o. potassium replacement ordered. Repeat labs in a.m.. May need potassium supplementation upon DC. -left adrenal mass 1.4 cm most likely benign. Continue outpatient surveillance with oncology -hypertension controlled. -urinary retention status post urinary Ivy catheter placement. DC Ivy. Patient given trial of void DC planning home today Time Spent with Patient Time attestation: Total time spent providing and/or coordinating discharge services:50 minutes on day of DC Exam Narrative: General: A well-developed, nontoxic-appearing female in no acute distress HEENT: PERRL, EOMI. Sclera anicteric. MMM, Oropharynx clear. Neck: Supple. FROM Respiratory: Lungs are clear to auscultation bilaterally. Cardiovascular: Regular rate and rhythm with S1-S2. Gastrointestinal: Abdomen is soft and nondistended with positive bowel sounds. minimal tenderness- left lower suprapubic, No guarding or rebound tenderness. right gluteal drain site without concern Skin: Warm and dry. No rash or lesions on limited exam. Extremities: No cyanosis, club
== END 2023-05-01 15:35 | disposition home or self-care (01) | DRG 391 ==
LOC: ANHED 15:43 → ANH3MEDSUR 15:44
PROVIDERS: Family Medicine; Internal Medicine; Nurse Practitioner Family; Physician Assistant; Radiology Diagnostic Radiology; Admitting Provider Internal Medicine; Emergency Provider Emergency Medicine; PCP Internal Medicine; Visit Provider Family Medicine
PROC: 0W9H30Z Drainage of Retroperitoneum with Drainage Device, Percutaneous Approach (ICD-10-PCS; principal; 2023-04-17 12:00)
PROC: 0W2HX0Z Change Drainage Device in Retroperitoneum, External Approach (ICD-10-PCS; principal; 2023-04-25 13:00)
DX: K57.20 Diverticulitis of large intestine with perforation and abscess without bleeding (principal); K65.1 Peritoneal abscess; B96.6 Bacteroides fragilis [B. fragilis] as the cause of diseases classified elsewhere; E86.0 Dehydration; E11.9 Type 2 diabetes mellitus without complications; E03.9 Hypothyroidism, unspecified; I10 Essential (primary) hypertension; E87.6 Hypokalemia; E27.9 Disorder of adrenal gland, unspecified; H40.9 Unspecified glaucoma; M81.0 Age-related osteoporosis without current pathological fracture; M19.90 Unspecified osteoarthritis, unspecified site; N28.1 Cyst of kidney, acquired; R19.7 Diarrhea, unspecified; R33.9 Retention of urine, unspecified; W19.XXXA Unspecified fall, initial encounter; Z96.653 Presence of artificial knee joint, bilateral; Z90.49 Acquired absence of other specified parts of digestive tract; Z20.822 Contact with and (suspected) exposure to COVID-19; Z79.85 Long-term (current) use of injectable non-insulin antidiabetic drugs
CPT/HCPCS: 36415; 74176; 74177; 75989; 76775; 80048; 80053; 81001; 82550; 82948; 83690; 83735; 84100; 84443; 85025; 85027; 85610; 85730; 87040; 87070; 87075; 87076; 87086; 87205; 87493; 87636; 93005; 96361; 96365; 96375; 96376; 97110; 97116; 97161; 97530; 99285; A9270; C1729; C1769; G0378; J1650; J2250; J2270; J2405; J2543; J3010; J3480; J7030; J7040; Q9967